=== PATIENT | female | born 1930 | race Caucasian/White ===

== ENCOUNTER 2017-09-04 12:17 | Inpatient (IN) ==
[2017-09-04] MEDS ORDERED: IOPAMIDOL 100 ML BOTTLE IV ONE (12:18)
[2017-09-04] MEDS ORDERED: 0.9 % SODIUM CHLORIDE 1,000 ML IV ONE (12:38)
[2017-09-04] MEDS ORDERED: ONDANSETRON 4 MG/2 ML VIAL IV ONE (12:38)
[2017-09-04 13:25] LABS: Basophils # (Auto) 0.1 K/mcL (0.0-0.3); Basophils % (Auto) 0.4 % (0.0-2.0); Eosinophils # (Auto) 0.6 K/mcL (0.0-0.7); Eosinophils % (Auto) 2.8 % (0.0-7.0); Granulocytes % (Auto) 79.1 % (38.0-78.0); Lymphocytes # (Auto) 2.1 K/mcL (1.5-4.8); Lymphocytes % (Auto) 10.4 % (15.5-49.0); Mean Cell Volume 75.5 fL (80.0-100.0); Mean Corpuscular HGB Conc 32.4 g/dL (31.0-36.0); Mean Corpuscular Hemoglobin 24.5 pg (26.0-34.0); Monocytes # (Auto) 1.5 K/mcL (0.1-0.9); Monocytes % (Auto) 7.3 % (1.0-12.0); Platelet Count 561 K/mcL (140-440); RBC 3.67 M/mcL (4.00-5.20); Red Cell Distribution Width 21.9 % (11.5-14.5)
[2017-09-04 13:49] LABS: ALT/SGPT 7 U/l (0-40); Albumin 3.4 gm/dL (3.2-5.2); Albumin/Globulin Ratio 0.9 (1.0-2.3); Alkaline Phosphatase 93 U/L (39-117); Blood Urea Nitrogen 20 mg/dl (8-23)
[2017-09-04] MEDS ORDERED: cefTRIAXone 1 GM VIAL IV ONE (13:52)
[2017-09-04 14:42] LABS: Appearance,Urine HAZY; Bacteria,Urine MANY /hpf (0); Bilirubin,Urine NEG (NEG); Color,Urine YELLOW; Glucose,Urine (UA) NEGATIVE (NEG); Ictotest,Urine NEG (NEG); Leukocyte Esterase,Urine 250 /uL (NEG); Mucus,Urine MANY /hpf (0); Nitrate,Urine POS (NEG); Protein,Urine 30 mg/dL (NEG); Specific Gravity,Urine 1.023 (1.000-1.035); Urine Blood NEG mg/dL (<0.03); Urine RBC 3 /hpf (0-1); Urine Squamous Epithelial Cell 4 /hpf (0-4); Urine WBC 159 /hpf (0-4)
--- NOTE | 2017-09-04 15:13 | Cat Scan Report ---
CLINICAL INFORMATION: Abdominal pain COMPARISON: None. TECHNIQUE: Following enteric contrast, 80 cc of Isovue-300 were injected intravenously, and 60 seconds later, 0.625 mm helical slices were obtained from the mid heart through the subtrochanteric regions. Following reconstruction, 2.5 mm sagittal, coronal and axial reformatted images were processed and reviewed at bone, lung and soft tissue windows. Five minutes later, 0.625 mm helical slices were obtained from the mid heart through the kidneys and viewed at soft tissue windows.The exam was performed using radiation dose optimization techniques including, but not limited to, automated exposure control, adjustment of the mA and/or kV according to patient size and use of iterative reconstruction technique. FINDINGS: Lung bases show no abnormality - no effusion. Small hiatal hernia is noted. The visualized heart is mildly enlarged and there is heavy calcification of mitral annulus Images through the abdomen show multiple small stones, ranging up to 1 cm, layering dependently within the gallbladder. The gallbladder is otherwise normal - no evidence of cholecystitis . The intrahepatic and common bile ducts are normal caliber: CBD is 5 mm. The liver, both kidneys, adrenal glands, spleen and pancreas are normal in size configuration and attenuation without focal lesion. The aorta demonstrates moderate ectasia with moderately heavy fibrofatty calcific plaque. Celiac, SMA, AG, renal and iliac arteries are widely patent Images through the pelvis show hysterectomy/ oophorectomy changes. There is a 1 cm fat lobule seen in the nondependent urinary bladder dome - uncertain etiology and significance. Severe diverticulitis of the entire sigmoid colon is noted. There are multiple diverticuli, circular muscle hypertrophy with moderate thickening of the wall and inflammation in the perisigmoid fat. No evidence of abscess. Remainder of the colon, appendix small bowel and stomach are normal. Bone windows show no focal osseous abnormalities. Degenerative change lumbar spine as previously described IMPRESSION: 1. Moderate simple diverticulitis involving the entire sigmoid colon. No evidence of abscess 2. Cholelithiasis. Gallbladder and bile ducts are otherwise normal 3. Small hiatal hernia 4. 1 cm region of fat within the urinary bladder near the dome region. The etiology and significance is unknown. Consider cystoscopy 5. Heavy calcification of mitral annulus Interpreted and Authenticated by: Nuno Roche 09/04/17
--- NOTE | 2017-09-04 15:34 | Emergency Department Note ---
Abdominal Pain HPI - General Chief Complaint: Abdominal Pain Stated Complaint: Lower abdominal pain x 1 week Time Seen by Provider: 09/04/17 12:28 Source: patient Mode of arrival: ambulatory Limitations: no limitations - History of Present Illness HPI Narrative: 79-year-old female presents with lower abdominal pain for about a week. Progressively getting worse each day. States a constant dull ache across her lower abdomen. She also has some urinary frequency. Denies dysuria. Denies hematuria. Positive chills the last 48 hours. Unknown fever. Has some nausea yesterday and today. No vomiting or diarrhea. Last bowel movement was last night and was normal. No cough or cold symptoms. No dizziness. She does state that last week she got a blood transfusion. States she had to get a blood transfusion because her hemorrhoids were bleeding so much. I did question her on this several times but she insists it was due to the bleeding from hemorrhoids. No home treatments. She does have a mildly decreased appetite especially over the last 3 days. - Related Data Home Medications Medication Instructions Recorded Confirmed Methocarbamol [Robaxin] 500 mg PO TIDP PRN 08/28/17 09/04/17 traMADol [Ultram] 50 mg PO Q6HP PRN 09/04/17 09/04/17 Allergies Allergy/AdvReac Type Severity Reaction Status Date / Time hayfever Allergy Mild Congested Uncoded 08/28/17 12:57 Review of Systems All systems ED: reviewed and negative except as stated. Abdominal Pain PMH - Past Medical History [facility] Narrative: Limited medical history available. To get some records from Dr. Goodrich's office but very limited. Patient has poor historian. Medical history: Reports: other (Diverticulosis, hemorrhoids, anemia) Reports: diverticulosis - Social History Smoking status: Never smoker Alcohol use: Reports: None Drug use: Reports: none Physical Exam Limitations: no limitations General appearance: alert, in no apparent distress Head: atraumatic, normocephalic, normal inspection Eye: Present: normal appearance. Absent: conjunctival injection ENT: normal exam, normal oropharynx, mucous membranes moist, TM's normal bilaterally, normal external ear exam Neck: Present: normal inspection, trachea midline. Absent: tenderness, lymphadenopathy Chest: Present: normal inspection, symmetric chest wall rise Respiratory: Present: normal lung sounds bilaterally. Absent: respiratory distress, wheezes, accessory muscle use Cardiovascular: Present: regular rate, normal heart sounds Abdominal: Present: soft, tenderness (Diffuse lower abdominal tenderness with palpation), normal bowel sounds, other (Urine dip positive for moderate leukocytes. Urinalysis pending. Please see lab results). Absent: distention, guarding, rebound, mass Extremities: Present: normal inspection Neurological: Present: alert, oriented X3 Psychiatric: Present: normal affect, normal mood Skin: Present: warm, dry, intact, normal color. Absent: rash, cyanosis, diaphoresis, erythema Course Course Narrative: At 1530 I did speak to the hospitalist, Dr. Harris who agrees to admit patient. Vital Signs Temperature 99.3 F H 09/04/17 12: Pulse Rate 107 H 09/04/17 12:17 Respiratory Rate 18 09/04/17 12:17 Blood Pressure 125/70 09/04/17 12:17 Pulse Oximetry (%) 95 09/04/17 12:17 Temperature 96.6 F L 09/04/17 16:00 Pulse Rate 79 09/04/17 15:17 Respiratory Rate 16 09/04/17 16:00 Blood Pressure 119/62 09/04/17 16:00 Pulse Oximetry (%) 95 09/04/17 16:00 Abdominal Pain - Lab Data Lab results reviewed: Yes I reviewed the patient's lab results. Result diagrams: 09/04/17 12:51 09/04/17 12:51 Lab Results 09/04/17 09/04/17 09/04/17 Range/Units 12:51 12:51 14:05 WBC 20.5 H (4.5-11.0) K/mcL RBC 3.67 L (4.00-5.20) M/mcL Hgb 9.0 L (12.0-15.0) g/dL Hct 27.7 L (36.0-48.0) % POC Hct 28.0 L (36.0-48.0) % MCV 75.5 L (80.0-100.0) fL MCH 24.5 L (26.0-34.0) pg MCHC 32.4 (31.0-36.0) g/dL RDW 21.9 H (11.5-14.5) % Plt Count 561 H (140-440) K/mcL MPV 7.6 (7.4-10.4) fL Gran % 79.1 H (38.0-78.0) % Lymph % (Auto) 10.4 L (15.5-49.0) % [place] % (Auto) 7.3 (1.0-12.0) % Eos % (Auto) 2.8 (0.0-7.0) % Baso % (Auto) 0.4 (0.0-2.0) % Gran # 16.2 H (1.8-8.0) K/mcL Lymph # (Auto) 2.1 (1.5-4.8) K/mcL [place] # (Auto) 1.5 H (0.1-0.9) K/mcL Eos # (Auto) 0.6 (0.0-0.7) K/mcL Baso # (Auto) 0.1 (0.0-0.3) K/mcL VBG Lactic Acid 0.7 (0.5-2.2) mmol/L POC Sodium 135 (133-145) mmol/L Sodium 136 (133-145) mmol/L POC Potassium 4.0 (3.3-5.1) mmol/L Potassium 4.2 (3.3-5.1) mmol/L POC Chloride 98 (96-108) mmol/L Chloride 97 (96-108) mmol/L Carbon Dioxide 25 (22-30) mmol/L POC Total CO2 26 (22-30) mmol/L Anion Gap 14.0 (8-16) POC BUN 18 (8-23) mg/dl BUN 20 (8-23) mg/dl Creatinine 0.9 (0.6-1.1) mg/dl POC Creatinine 0.8 (0.6-1.1) mg/dl GFR Calculation 57 Glucose 116 H (70-105) mg/dL POC Glucose 116 H (70-105) mg/dL Calcium 9.6 (8.6-10.4) mg/dl POC WB Ioniz Calcium 1.20 (1.16-1.32) mmol/L Total Bilirubin 0.6 (0.0-1.0) mg/dL AST 11 (0-37) U/l ALT 7 (0-40) U/l Alkaline Phosphatase 93 (39-117) U/L Total Protein 7.0 (5.9-8.4) gm/dL Albumin 3.4 (3.2-5.2) gm/dL Globulin 3.6 (2.2-3.7) gm/dL Albumin/Globulin Ratio 0.9 L (1.0-2.3) Urine Color Urine Appearance Urine pH (5.0-9.0) Ur Specific [place] (1.000-1.035) Urine Protein (NEG) mg/dL Urine Glucose (UA) (NEG) mg/dL Urine Ketones (NEG) mg/dL Urine Occult Blood (<0.03) mg/dL Urine Nitrate (NEG) Urine Bilirubin (NEG) mg/dL Urine Ictotest (NEG) Urine Urobilinogen (NEG) mg/dL Ur Leukocyte Esterase (NEG) /uL Urine RBC (0-1) /hpf Urine WBC (0-4) /hpf Ur Squamous Epith Cells (0-4) /hpf Urine Bacteria (0) /hpf Urine Mucus (0) /hpf Ur Culture Indicated? 09/04/17 Range/Units 14:16 WBC (4.5-11.0) K/mcL RBC (4.00-5.20) M/mcL Hgb (12.0-15.0) g/dL Hct (36.0-48.0) % POC Hct (36.0-48.0) % MCV (80.0-100.0) fL MCH (26.0-34.0) pg MCHC (31.0-36.0) g/dL RDW (11.5-14.5) % Plt Count (140-440) K/mcL MPV (7.4-10.4) fL Gran % (38.0-78.0) % Lymph % (Auto) (15.5-49.0) % [place] % (Auto) (1.0-12.0) % Eos % (Auto) (0.0-7.0) % Baso % (Auto) (0.0-2.0) % Gran # (1.8-8.0) K/mcL Lymph # (Auto) (1.5-4.8) K/mcL [place] # (Auto) (0.1-0.9) K/mcL Eos # (Auto) (0.0-0.7) K/mcL Baso # (Auto) (0.0-0.3) K/mcL VBG Lactic Acid (0.5-2.2) mmol/L POC Sodium (133-145) mmol/L Sodium (133-145) mmol/L POC Potassium (3.3-5.1) mmol/L Potassium (3.3-5.1) mmol/L POC Chloride (96-108) mmol/L Chloride (96-108) mmol/L Carbon Dioxide (22-30) mmol/L POC Total CO2 (22-30) mmol/L Anion Gap (8-16) POC BUN (8-23) mg/dl BUN (8-23) mg/dl Creatinine (0.6-1.1) mg/dl POC Creatinine (0.6-1.1) mg/dl GFR Calculation Glucose (70-105) mg/dL POC Glucose (70-105) mg/dL Calcium (8.6-10.4) mg/dl POC WB Ioniz Calcium (1.16-1.32) mmol/L Total Bilirubin (0.0-1.0) mg/dL AST (0-37) U/l ALT (0-40) U/l Alkaline Phosphatase (39-117) U/L Total Protein (5.9-8.4) gm/dL Albumin (3.2-5.2) gm/dL Globulin (2.2-3.7) gm/dL Albumin/Globulin Ratio (1.0-2.3) Urine Color Yellow Urine Appearance Hazy Urine pH 5.0 (5.0-9.0) Ur Specific [place] 1.023 (1.000-1.035) Urine Protein 30 A (NEG) mg/dL Urine Glucose (UA) Negative (NEG) mg/dL Urine Ketones Neg (NEG) mg/dL Urine Occult Blood Neg (<0.03) mg/dL Urine Nitrate Pos A (NEG) Urine Bilirubin Neg (NEG) mg/dL Urine Ictotest Neg (NEG) Urine Urobilinogen 2.0 A (NEG) mg/dL Ur Leukocyte Esterase 250 A (NEG) /uL Urine RBC 3 H (0-1) /hpf Urine WBC 159 H (0-4) /hpf Ur Squamous Epith Cells 4 (0-4) /hpf Urine Bacteria Many A (0) /hpf Urine Mucus Many A (0) /hpf Ur Culture Indicated? Yes - Radiology Data Radiology results reviewed: Yes I reviewed the patient's radiology results. Disposition Pt seen by OBSTETRICS GYN PHYSICIAN/PA only: No Clinical Impression: Diverticulitis, Urinary tract infection, Abdominal pain Disposition: Xfer As Inpt ([facility]) Condition: Fair Time of Disposition: 19:00
[2017-09-04] MEDS ORDERED: HYDROmorphone 2 MG/ML SYRINGE IV PRN (15:58)
[2017-09-04] MEDS ORDERED: ONDANSETRON ODT 4 MG TABLET SL PRN (15:58)
[2017-09-04] MEDS ORDERED: cefTRIAXone 1 GM in DEXTROSE 5% IN WATER 50 ML IV SCH (15:58)
[2017-09-04] MEDS ORDERED: NALOXONE HCL 0.4 MG/ML VIAL IV PRN (15:58)
[2017-09-04] MEDS ORDERED: ALBUTEROL SULFATE 2.5 MG/3 ML NEBULIZER NEB PRN (15:58)
--- NOTE | 2017-09-04 16:26 | Emergency Department Note ---
ED Note Addendum Note Addendum: pt has diverticulitis , seen by Alyssa, and hospitalist Dr Durand has accepted the patient. Patient started on antibiotics, and agreew with dx and rx. Labs and xrays reviewed
[2017-09-04] MEDS: DEXTROSE 5%-LR W/20MEQ KCL 1,000 ML IV SCH (16:41)
--- NOTE | 2017-09-04 17:03 | Internal Med History&Physical ---
Medical - H&P: HPI Patient information: Note initiated : 09/04/17 at 5:00 pm Service Date, if different from initiated Date: [] Patient: Kenya Diamond a 87 y/o F admitted on 09/04/17 for Lower Abd Pain x 1 Week. Chief Complaint: [] History of present illness: Ms. Diamond is a 87 year old Female presnts to the ER today with complaints of abdominal pain x 1 week pain is located in the lower abdomen and left lower quadrant, constant, sharp, with intermittent worsening, this has been progressively geting worse, she notes she has decreased appetite and has not been eating much. Pain is worse with ambulation and better with rest and muscle relaxants. She has blood in the stools, which she has attributed to hemorrhoids, she has received transfusions for same in [place] past, last xfusion on sunday, she is due to see a surgeon denies need for colonoscopy and was argumentative about the need for one. she had one few yrs ago and notes was ok. The patient in the ER had elevated wbc, normal lact ic acid, abnl ua and CT abdomen showing sigmoid diverticulitis, admitted to the hospital for further management. All systems: reviewed and no additional remarkable complaints except as stated ( as per hpi) Medical - H&P: PMH Medical history: Medical History Diverticulitis (Acute) Urinary tract infection (Acute) Abdominal pain (Acute) Surgical history: hystrectomy Pertinent family history: father with leukamemia, no h/o colon cancer in family Social history: denies smoking, tobacco, denies etoh denies use of recreational drugs. Medical - H&P: Meds Home Medications Medication Instructions Recorded Confirmed Type Methocarbamol [Robaxin] 500 mg PO TIDP PRN 08/28/17 09/04/17 History traMADol [Ultram] 50 mg PO Q6HP PRN 09/04/17 09/04/17 History Allergies Allergy/AdvReac Type Severity Reaction Status Date / Time hayfever Allergy Mild Congested Uncoded 08/28/17 12:57 Medical - H&P: Exam - Constitutional Vitals: Temp Pulse Resp BP Pulse Ox 99.3 F H 79 18 132/58 93 09/04/17 12:17 09/04/17 15:17 09/04/17 12:17 09/04/17 15:17 09/04/17 15:17 Exam: GENERAL: The patient is a well-developed, well-nourished in no apparent distress. Is alert and oriented x3. VITAL SIGNS: Reviewed and as noted elsewhere. HEENT: Head is normocephalic and atraumatic. Extraocular muscles are intact. Pupils are equal, round, and reactive to light. Nares appeared normal. Mouth appears any without lesions. Mucous membranes are dry NECK: Normal to inspection, Supple, No lymphadenopathy or thyromegaly. LUNGS: Air entry equal on both sides, no wheezing, crackles or rhonchi noted. No accessory muscles of respiration HEART: Regular rate and rhythm normal, S1 and S2 heard, no Gallop, S3 or Rub Noted, No Gross murmur heard. ABDOMEN: Soft,hypogastric tenderness, left lower quadrant tenderness, guarding present, no rigidity, bowel sounds present. no organomegaly noted. EXTREMITIES: No cyanosis, clubbing, rash, lesions or edema. NEUROLOGIC: Cranial nerves II through XII are grossly intact. Motor and Sensory System Grossly Intact PSYCHIATRIC: Normal affect, Normal Mood. Appropriate Behavior. SKIN: No ulceration or wounds noted, No jaundice, No rash noted. Medical - H&P: Reslt - Labs CBC & Chem 7: 09/04/17 12:51 09/04/17 12:51 Labs: Short CBC 09/04/17 Range/Units 12:51 WBC 20.5 H (4.5-11.0) K/mcL Hgb 9.0 L (12.0-15.0) g/dL Hct 27.7 L (36.0-48.0) % Plt Count 561 H (140-440) K/mcL BMP 09/04/17 12:51 Sodium 136 Potassium 4.2 Chloride 97 Carbon Dioxide 25 BUN 20 Creatinine 0.9 Glucose 116 H Calcium 9.6 Liver Function 09/04/17 Range/Units 12:51 Total Bilirubin 0.6 (0.0-1.0) mg/dL AST 11 (0-37) U/l ALT 7 (0-40) U/l Alkaline Phosphatase 93 (39-117) U/L Albumin 3.4 (3.2-5.2) gm/dL Urine 09/04/17 Range/Units 14:16 Urine Color Yellow Urine Appearance Hazy Urine pH 5.0 (5.0-9.0) Ur Specific [place] 1.023 (1.000-1.035) Urine Protein 30 A (NEG) mg/dL Urine Glucose (UA) Negative (NEG) mg/dL Medical - H&P: A/P - Narrative A/P Narrative: A/P Acute Diveticulitis UTI Sepsis Osteoarthrtitis/ Chr back pain Plan Admit to med surg Clear liquid diet for now IV rocephin and flagyl IV FLuids pain control monitor response dvt hep s q full code.
[2017-09-04] MEDS: metroNIDAZOLE 500 MG/100 ML BAG IV SCH ×2 (17:31→23:05)
[2017-09-04] MEDS: FAMOTIDINE/PF 20 MG/2 ML VIAL IV SCH (19:22)
[2017-09-04] MEDS: HEPARIN 5,000 UNIT/ML VIAL SQ SCH (19:22)
[2017-09-04] MEDS: METHOCARBAMOL 500 MG TABLET PO PRN (19:25)
[2017-09-04] MEDS: 0.9 % SODIUM CHLORIDE 10 ML SYRINGE IV SCH (20:19)
[2017-09-05] MEDS: METHOCARBAMOL 500 MG TABLET PO PRN (01:43)
[2017-09-05] MEDS: oxyCODONE HCL 5 MG TABLET PO PRN ×2 (04:37→21:12)
[2017-09-05] MEDS: ACETAMINOPHEN 325 MG TABLET PO PRN ×2 (04:37→21:12)
[2017-09-05] MEDS: 0.9 % SODIUM CHLORIDE 10 ML SYRINGE IV SCH ×3 (05:12→21:13)
[2017-09-05] MEDS: metroNIDAZOLE 500 MG/100 ML BAG IV SCH ×3 (05:16→22:50)
[2017-09-05] MEDS: DEXTROSE 5%-LR W/20MEQ KCL 1,000 ML IV SCH (07:39)
[2017-09-05] MEDS: HEPARIN 5,000 UNIT/ML VIAL SQ SCH ×2 (09:04→21:12)
[2017-09-05] MEDS: FAMOTIDINE/PF 20 MG/2 ML VIAL IV SCH ×2 (09:05→21:12)
[2017-09-05] MEDS: cefTRIAXone 1 GM VIAL IV SCH (09:05)
[2017-09-05 09:32] LABS: Basophils # (Auto) 0 K/mcL (0.0-0.3); Basophils % (Auto) 0.3 % (0.0-2.0); Eosinophils # (Auto) 0.6 K/mcL (0.0-0.7); Eosinophils % (Auto) 4.3 % (0.0-7.0); Granulocytes % (Auto) 76.9 % (38.0-78.0); Lymphocytes # (Auto) 1.5 K/mcL (1.5-4.8); Lymphocytes % (Auto) 10.6 % (15.5-49.0); Mean Cell Volume 75.8 fL (80.0-100.0); Mean Corpuscular HGB Conc 32.6 g/dL (31.0-36.0); Mean Corpuscular Hemoglobin 24.7 pg (26.0-34.0); Monocytes # (Auto) 1.1 K/mcL (0.1-0.9); Monocytes % (Auto) 7.9 % (1.0-12.0); Platelet Count 493 K/mcL (140-440); RBC 3.29 M/mcL (4.00-5.20); Red Cell Distribution Width 21.9 % (11.5-14.5)
[2017-09-05 09:51] LABS: ALT/SGPT 7 U/l (0-40); Albumin 2.6 gm/dL (3.2-5.2); Albumin/Globulin Ratio 0.8 (1.0-2.3); Alkaline Phosphatase 79 U/L (39-117); Bilirubin,Direct < 0.2 mg/dL (0.0-0.3); Blood Urea Nitrogen 16 mg/dl (8-23); Gamma Glutamyl Transpeptidase 17 U/L (5-36); Uric Acid 5.1 mg/dL (2.5-8.0)
[2017-09-05] MEDS ORDERED: IPRATROPIUM/ALBUTEROL 3 ML AMPUL.NEB NEB ONE ×2 (21:00→21:41)
--- NOTE | 2017-09-05 21:03 | Internal Med Progress Note ---
Medical - PN: Subj Patient information: Note initiated : 09/05/17 at 9:00 pm Service Date, if different from initiated Date: [] Patient: Kenya Diamond 87 y/o F admitted on 09/04/17 for Lower Abd Pain x 1 Wk/Diverticulitis, UTI, Sepsis. Chief Complaint: [] Interval history: Ms. Diamond is a 87 year old Female presnts to the ER today with complaints of abdominal pain x 1 week pain is located in the lower abdomen and left lower quadrant, constant, sharp, with intermittent worsening, this has been progressively geting worse, she notes she has decreased appetite and has not been eating much. Pain is worse with ambulation and better with rest and muscle relaxants. She has blood in the stools, which she has attributed to hemorrhoids, she has received transfusions for same in [place] past, last xfusion on sunday, she is due to see a surgeon denies need for colonoscopy and was argumentative about the need for one. she had one few yrs ago and notes was ok. The patient in the ER had elevated wbc, normal lact ic acid, abnl ua and CT abdomen showing sigmoid diverticulitis, admitted to the hospital for further management. Sep 05 patient seen examined, no acute overnight events, tolerated liquid diet well, she still has soreness in abdomen but much better urine cx is gram neg bacillus, on rocephin patient diet advanced today to low fiber diet and she is tolerating it well Pertinent ROS: Denies headache, dizziness Denies chest pain, palpitations Denies cough or shortness of breath abdoimnal pain present, but no nausea and or vomiting. . - Constitutional Vitals: Vital Signs Temp Pulse Resp BP Pulse Ox 99.8 F H 97 H 24 H 160/67 93 09/05/17 18:45 09/05/17 18:45 09/05/17 18:45 09/05/17 18:45 09/05/17 18:45 Period Temp Pulse Resp BP Sys/[place]arrison Pulse Ox Last 24 Hr 96.4 F-99.8 F 74-98 18-24 99-160/53-77 93-97 Intake and Output 09/05/17 09/05/17 09/05/17 05:59 13:59 21:59 Intake Total 785 / 785 1100 / 1100 400 / 400 Output Total 551 / 551 250 / 250 375 / 375 Balance 234 / 234 850 / 850 25 / 25 Intake & Output: Intake & Output 09/05/17 09/05/17 09/05/17 05:59 13:59 21:59 Intake Total 785 / 785 1100 / 1100 400 / 400 Output Total 551 / 551 250 / 250 375 / 375 Balance 234 / 234 850 / 850 25 / 25 Intake: IV 100 / 100 1100 / 1100 100 / 100 Dextrose 5%-Lr W/20Meq KCl 1, 1000 / 1000 000 ml @ 75 mls/hr IV .[id number] [facility] Rx#:[id number] Oral 685 / 685 300 / 300 Output: Void Amount 550 / 550 250 / 250 375 / 375 # of times incontinent of urine Other: Meal Breakfast Dinner Percent of Meal Consumed 100% 50% Feeding Ability Assist with Tray Set Up # Bowel Movements 1 Exam: Constitutional; Afebrile, cooperative, alert, not in distress. Eyes- No icterus, , No periorbital swelling Ears- Ext ear normal, hearing normal to conversation. Neck- Midline trachea, supple Respiratory system: Air Entry equal on both sides, No crackles or wheezing, no rhonchi. CVS- Rate rhythm regular, S1,S2 heard, no gallop, no rub. Abdomen- tender hypogastric, left lower quadrant, bowel sounds present, some guarding present. FORESTRY AIDE- AOOx3, moving all extremities, no gross focal deficit noted. Medical - PN: Obj Da - Labs CBC & Chem 7: 09/05/17 08:55 09/05/17 08:55 Labs: Abnormal Lab Results 09/05/17 09/05/17 09/04/17 08:55 08:55 14:16 WBC 14.0 H RBC 3.29 L Hgb 8.1 L Hct 24.9 L POC Hct MCV 75.8 L MCH 24.7 L RDW 21.9 H Plt Count 493 H Gran % Lymph % (Auto) 10.6 L Gran # 10.8 H [place] # (Auto) 1.1 H Glucose POC Glucose Lactate Dehydrogenase 260 H Albumin 2.6 L Albumin/Globulin Ratio 0.8 L Urine Protein 30 A Urine Nitrate Pos A Urine Urobilinogen 2.0 A Ur Leukocyte Esterase 250 A Urine RBC 3 H Urine WBC 159 H Urine Bacteria Many A Urine Mucus Many A 09/04/17 09/04/17 12:51 12:51 WBC 20.5 H RBC 3.67 L Hgb 9.0 L Hct 27.7 L POC Hct 28.0 L MCV 75.5 L MCH 24.5 L RDW 21.9 H Plt Count 561 H Gran % 79.1 H Lymph % (Auto) 10.4 L Gran # 16.2 H [place] # (Auto) 1.5 H Glucose 116 H POC Glucose 116 H Lactate Dehydrogenase Albumin Albumin/Globulin Ratio 0.9 L Urine Protein Urine Nitrate Urine Urobilinogen Ur Leukocyte Esterase Urine RBC Urine WBC Urine Bacteria Urine Mucus Meds: Medications Acetaminophen (Tylenol) 650 mg PO Q6HP PRN PRN Reason: PAIN/FEVER > 101 Last Admin: 09/05/17 04:37 Dose: 650 mg Albuterol Sulfate (Ventolin) 2.5 mg NEB Q2HP PRN PRN Reason: Shortness Of Breath Ceftriaxone Sodium (Rocephin) 1 gm IV DAILY [facility] Last Admin: 09/05/17 09:05 Dose: 1 gm Famotidine (Pepcid) 20 mg IV Q12 [facility] Last Admin: 09/05/17 09:05 Dose: 20 mg Heparin Sodium (Porcine) (Heparin) 5,000 unit SQ Q12 [facility] Last Admin: 09/05/17 09:04 Dose: 5,000 unit Hydromorphone HCl (Dilaudid) 0.5 mg IV Q2HP PRN PRN Reason: PAIN LEVEL > 6 Metronidazole (Flagyl) 500 mg in 100 mls @ 100 mls/hr IV Q8H [facility] Last Infusion: 09/05/17 15:46 Dose: Infused Potassium Cl/Dextrose/Lact Ringer's (Dextrose 5%-Lr W/20meq Kcl) 1,000 mls @ 75 mls/hr IV .[id number] [facility] Last Admin: 09/05/17 07:39 Dose: 75 mls/hr Methocarbamol (Robaxin) 500 mg PO TIDP PRN PRN Reason: back spasms Last Admin: 09/05/17 01:43 Dose: 500 mg Naloxone HCl (Narcan) 0.1 mg IV Q2MIN PRN PRN Reason: Opiate Reversal Ondansetron HCl (Zofran Odt) 4 mg SL Q6HP PRN PRN Reason: Nausea And Vomiting Oxycodone HCl (Roxicodone) 5 mg PO Q4HP PRN PRN Reason: PAIN LEVEL 3-6 Last Admin: 09/05/17 04:37 Dose: 5 mg Sodium Chloride (Saline Flush) 10 ml IV Q8 [facility] Last Admin: 09/05/17 14:49 Dose: 10 ml Medical - PN: A/P - Time Spent With Patient Total time spent is greater than 50% in coordination of care (as documented) at patient's floor/unit and/or counseling patient: - Narrative A/P Narrative: A/P Acute Diveticulitis: low fiber diet for now on flagyl and rocephin, clinically improving UTI: on rocephin, gram neg matthew on cultures. sensitivities pending, clinically improving, mointor. Sepsis, wbc trending down bp stable monitor. Osteoarthrtitis/ Chr back pain resume home meds. anemia: due to sepsis, hb 8.1, likely from fluids and infection/ sepsis no e/o bleed monitor. xfuse if needed, send anemia workup dvt hep s q full code.
[2017-09-06] MEDS: DEXTROSE 5%-LR W/20MEQ KCL 1,000 ML IV SCH (00:47)
[2017-09-06 05:36] LABS: Basophils # (Auto) 0.1 K/mcL (0.0-0.3); Basophils % (Auto) 0.4 % (0.0-2.0); Eosinophils # (Auto) 0.7 K/mcL (0.0-0.7); Eosinophils % (Auto) 5.6 % (0.0-7.0); Granulocytes % (Auto) 70.1 % (38.0-78.0); Lymphocytes % (Auto) 15.5 % (15.5-49.0); Mean Cell Volume 75.8 fL (80.0-100.0); Mean Corpuscular HGB Conc 31.6 g/dL (31.0-36.0); Monocytes # (Auto) 1.1 K/mcL (0.1-0.9); Monocytes % (Auto) 8.4 % (1.0-12.0); Platelet Count 506 K/mcL (140-440); RBC 3.22 M/mcL (4.00-5.20); Red Cell Distribution Width 21.8 % (11.5-14.5)
[2017-09-06] MEDS: 0.9 % SODIUM CHLORIDE 10 ML SYRINGE IV SCH ×3 (06:00→21:04)
[2017-09-06] MEDS: metroNIDAZOLE 500 MG/100 ML BAG IV SCH ×3 (06:00→21:04)
[2017-09-06 06:02] LABS: ALT/SGPT 7 U/l (0-40); Albumin 2.8 gm/dL (3.2-5.2); Albumin/Globulin Ratio 0.8 (1.0-2.3); Alkaline Phosphatase 109 U/L (39-117); Bilirubin,Direct < 0.2 mg/dL (0.0-0.3); Blood Urea Nitrogen 15 mg/dl (8-23); Gamma Glutamyl Transpeptidase 21 U/L (5-36); Iron 16 mcg/dl (37-145); Transferrin % Saturation 7 % (15-50); Unsaturated Iron Binding 207 mcg/dL (112-346); Uric Acid 4.7 mg/dL (2.5-8.0)
[2017-09-06 06:38] LABS: Ferritin 89.2 ng/ml (30-400)
[2017-09-06 06:44] LABS: Vitamin B12 501.6 pg/ml (232-1245)
[2017-09-06] MEDS: ACETAMINOPHEN 325 MG TABLET PO PRN (07:41)
[2017-09-06] MEDS ORDERED: IRON SUCROSE COMPLEX 100 MG/5 ML VIAL IV ONE (07:42)
[2017-09-06] MEDS: FAMOTIDINE/PF 20 MG/2 ML VIAL IV SCH ×2 (09:00→20:52)
[2017-09-06] MEDS: cefTRIAXone 1 GM VIAL IV SCH (11:07)
[2017-09-06] MEDS: HEPARIN 5,000 UNIT/ML VIAL SQ SCH ×2 (11:54→20:52)
--- NOTE | 2017-09-06 14:57 | Internal Med Progress Note ---
Medical - PN: Subj Patient information: Note initiated : 09/06/17 at 2:55 pm Service Date, if different from initiated Date: [] Patient: Kenya Diamond 87 y/o F admitted on 09/04/17 for Lower Abd Pain x 1 Wk/Diverticulitis, UTI, Sepsis. Chief Complaint: [] Interval history: Ms. Diamond is a 87 year old Female presnts to the ER today with complaints of abdominal pain x 1 week pain is located in the lower abdomen and left lower quadrant, constant, sharp, with intermittent worsening, this has been progressively geting worse, she notes she has decreased appetite and has not been eating much. Pain is worse with ambulation and better with rest and muscle relaxants. She has blood in the stools, which she has attributed to hemorrhoids, she has received transfusions for same in [place] past, last xfusion on sunday, she is due to see a surgeon denies need for colonoscopy and was argumentative about the need for one. she had one few yrs ago and notes was ok. The patient in the ER had elevated wbc, normal lact ic acid, abnl ua and CT abdomen showing sigmoid diverticulitis, admitted to the hospital for further management. Sep 05 patient seen examined, no acute overnight events, tolerated liquid diet well, she still has soreness in abdomen but much better urine cx is gram neg bacillus, on rocephin patient diet advanced today to low fiber diet and she is tolerating it well sep 06 Patient seen examined no acute concerns, tolerating po well hb low, iron levels lwo, h/o significant bleed, give one dose of IV iron today. she is supposed to see surgery as outpatient for hemorroihd treatment. abdominal pain much better now. Pertinent ROS: Denies headache, dizziness Denies chest pain, palpitations Denies cough or shortness of breath improved abdominal pain, no nausea/ vomiting. - Constitutional Vitals: Vital Signs Temp Pulse Resp BP Pulse Ox 97.5 F 78 20 120/83 97 09/06/17 13:14 09/06/17 07:40 09/06/17 13:14 09/06/17 13:14 09/06/17 13:14 Period Temp Pulse Resp BP Sys/Harrison Pulse Ox Last 24 Hr 97.3 F-99.8 F 78-97 18-24 104-160/54-83 92-97 Intake and Output 09/06/17 09/06/17 09/06/17 05:59 13:59 21:59 Intake Total 200 / 200 100 / 100 240 / 240 Output Total 201 / 201 700 / 700 Balance -1 / -1 -600 / -600 240 / 240 Weight 184 lb 8 oz Patient Weight 09/07/17 05:59 Weight 184 lb 8 oz Intake & Output: Intake & Output 09/06/17 09/06/17 09/06/17 05:59 13:59 21:59 Intake Total 200 / 200 100 / 100 240 / 240 Output Total 201 / 201 700 / 700 Balance -1 / -1 -600 / -600 240 / 240 Weight 184 lb 8 oz Intake: IV 100 / 100 100 / 100 Oral 100 / 100 240 / 240 Output: Void Amount 200 / 200 700 / 700 # of times incontinent of urine Other: Meal Breakfast Percent of Meal Consumed 100% # Bowel Movements 1 Exam: Constitutional; Afebrile, cooperative, alert, not in distress. Eyes- No icterus, , No periorbital swelling Ears- Ext ear normal, hearing normal to conversation. Neck- Midline trachea, supple Respiratory system: Air Entry equal on both sides, No crackles or wheezing, no rhonchi. CVS- Rate rhythm regular, S1,S2 heard, no gallop, no rub. Abdomen- tenderness improved, no guarding today, bs present. CLIENT RELATIONSHIP CONSULTANT- AOOx3, moving all extremities, no gross focal deficit noted. Medical - PN: Obj Da - Labs CBC & Chem 7: 09/06/17 04:21 09/06/17 04:21 Labs: Abnormal Lab Results 09/06/17 09/06/17 09/06/17 04:21 04:21 04:21 WBC 12.9 H RBC 3.22 L Hgb 7.7 L Hct 24.4 L POC Hct MCV 75.8 L MCH 24.0 L RDW 21.8 H Plt Count 506 H Gran % Lymph % (Auto) Gran # 9.1 H [place] # (Auto) 1.1 H Glucose POC Glucose Iron 16 L TIBC 223 L Transferrin % Sat 7 L Lactate Dehydrogenase Albumin 2.8 L Albumin/Globulin Ratio 0.8 L Folate > 20.0 H Urine Protein Urine Nitrate Urine Urobilinogen Ur Leukocyte Esterase Urine RBC Urine WBC Urine Bacteria Urine Mucus 12/09/05/17 09/04/17 08:55 08:55 14:16 WBC 14.0 H RBC 3.29 L Hgb 8.1 L Hct 24.9 L POC Hct MCV 75.8 L MCH 24.7 L RDW 21.9 H Plt Count 493 H Gran % Lymph % (Auto) 10.6 L Gran # 10.8 H [place] # (Auto) 1.1 H Glucose POC Glucose Iron TIBC Transferrin % Sat Lactate Dehydrogenase 260 H Albumin 2.6 L Albumin/Globulin Ratio 0.8 L Folate Urine Protein 30 A Urine Nitrate Pos A Urine Urobilinogen 2.0 A Ur Leukocyte Esterase 250 A Urine RBC 3 H Urine WBC 159 H Urine Bacteria Many A Urine Mucus Many A 09/04/17 09/04/17 12:51 12:51 WBC 20.5 H RBC 3.67 L Hgb 9.0 L Hct 27.7 L POC Hct 28.0 L MCV 75.5 L MCH 24.5 L RDW 21.9 H Plt Count 561 H Gran % 79.1 H Lymph % (Auto) 10.4 L Gran # 16.2 H [place] # (Auto) 1.5 H Glucose 116 H POC Glucose 116 H Iron TIBC Transferrin % Sat Lactate Dehydrogenase Albumin Albumin/Globulin Ratio 0.9 L Folate Urine Protein Urine Nitrate Urine Urobilinogen Ur Leukocyte Esterase Urine RBC Urine WBC Urine Bacteria Urine Mucus Meds: Medications Acetaminophen (Tylenol) 650 mg PO Q6HP PRN PRN Reason: PAIN/FEVER > 101 Last Admin: 09/06/17 07:41 Dose: 650 mg Albuterol Sulfate (Ventolin) 2.5 mg NEB Q2HP PRN PRN Reason: Shortness Of Breath Ceftriaxone Sodium (Rocephin) 1 gm IV DAILY [facility] Last Admin: 09/06/17 11:07 Dose: 1 gm Famotidine (Pepcid) 20 mg IV Q12 [facility] Last Admin: 09/06/17 09:00 Dose: 20 mg Heparin Sodium (Porcine) (Heparin) 5,000 unit SQ Q12 [facility] Last Admin: 09/06/17 11:54 Dose: 5,000 unit Hydromorphone HCl (Dilaudid) 0.5 mg IV Q2HP PRN PRN Reason: PAIN LEVEL > 6 Metronidazole (Flagyl) 500 mg in 100 mls @ 100 mls/hr IV Q8H [facility] Last Infusion: 09/06/17 07:21 Dose: Infused Methocarbamol (Robaxin) 500 mg PO TIDP PRN PRN Reason: back spasms Last Admin: 09/05/17 01:43 Dose: 500 mg Naloxone HCl (Narcan) 0.1 mg IV Q2MIN PRN PRN Reason: Opiate Reversal Ondansetron HCl (Zofran Odt) 4 mg SL Q6HP PRN PRN Reason: Nausea And Vomiting Oxycodone HCl (Roxicodone) 5 mg PO Q4HP PRN PRN Reason: PAIN LEVEL 3-6 Last Admin: 09/05/17 21:12 Dose: 5 mg Sodium Chloride (Saline Flush) 10 ml IV Q8 [facility] Last Admin: 09/06/17 06:00 Dose: 10 ml Medical - PN: A/P - Time Spent With Patient Total time spent is greater than 50% in coordination of care (as documented) at patient's floor/unit and/or counseling patient: - Narrative A/P Narrative: A/P Acute Diveticulitis: low fiber diet for now on flagyl and rocephin, clinically improving UTI: on rocephin, gram neg matthew on cultures. sensitivities pending, clinically improving, monitor. Sepsis, wbc trending down bp stable monitor. Osteoarthrtitis/ Chr back pain resume home meds. anemia: due to sepsis, hb 8.1, likely from fluids and infection/ sepsis no e/o bleed monitor. xfuse if needed, anemia workup shows iron def, h/o chr blood loss for hemorrhoids, given GI process, will give one dose of IV iron for now. dvt hep s q full code.
[2017-09-06] MEDS: oxyCODONE HCL 5 MG TABLET PO PRN (15:09)
[2017-09-07] MEDS: 0.9 % SODIUM CHLORIDE 10 ML SYRINGE IV SCH (05:36)
[2017-09-07] MEDS: metroNIDAZOLE 500 MG/100 ML BAG IV SCH (05:36)
[2017-09-07 07:00] LABS: Basophils # (Auto) 0 K/mcL (0.0-0.3); Basophils % (Auto) 0.3 % (0.0-2.0); Eosinophils # (Auto) 0.6 K/mcL (0.0-0.7); Eosinophils % (Auto) 5.6 % (0.0-7.0); Granulocytes % (Auto) 67.8 % (38.0-78.0); Lymphocytes # (Auto) 1.6 K/mcL (1.5-4.8); Lymphocytes % (Auto) 15.2 % (15.5-49.0); Mean Cell Volume 75.1 fL (80.0-100.0); Mean Corpuscular HGB Conc 32.4 g/dL (31.0-36.0); Mean Corpuscular Hemoglobin 24.3 pg (26.0-34.0); Monocytes # (Auto) 1.1 K/mcL (0.1-0.9); Monocytes % (Auto) 11.1 % (1.0-12.0); Platelet Count 537 K/mcL (140-440); RBC 3.21 M/mcL (4.00-5.20); Red Cell Distribution Width 21.5 % (11.5-14.5)
[2017-09-07 07:29] LABS: ALT/SGPT 7 U/l (0-40); Albumin 2.6 gm/dL (3.2-5.2); Albumin/Globulin Ratio 0.7 (1.0-2.3); Alkaline Phosphatase 90 U/L (39-117); Bilirubin,Direct < 0.2 mg/dL (0.0-0.3); Blood Urea Nitrogen 12 mg/dl (8-23); Gamma Glutamyl Transpeptidase 17 U/L (5-36); Magnesium 1.9 mg/dL (1.6-2.5)
[2017-09-07] MEDS: FAMOTIDINE/PF 20 MG/2 ML VIAL IV SCH (09:00)
[2017-09-07] MEDS: HEPARIN 5,000 UNIT/ML VIAL SQ SCH (09:00)
--- NOTE | 2017-09-07 10:16 | Discharge Summary ---
Medical - DS: Prov Patient information: Note initiated : 09/07/17 at 10:15 am Service Date, if different from initiated Date: [] Patient: Kenya Diamond 87 y/o F admitted on 09/04/17 for Lower Abd Pain x 1 Wk/Diverticulitis, UTI, Sepsis. Chief Complaint: [] Date of admission: 09/04/17 15:55 Discharge date: 09/07/17 Primary care physician: Adeel Underwood Admitting clinician: Elen Harris Consults: 09/04/17 15:22 Consult to Physician [CONS] Stat Comment: Consulting Provider: Elen Harris Reason For Exam: Physician to Consult Discharging clinician: Elen Harris Medical - DS: Meds - Discharge Medications Prescriptions: Ciprofloxacin HCl [Cipro] 500 mg PO BID #14 tab metroNIDAZOLE [Metronidazole] 500 mg PO TID #21 tab traMADol [Ultram] 50 mg PO Q6HP PRN #30 tab PRN Reason: Pain Active and Home Medications: Home Medications Methocarbamol [Robaxin] 500 mg PO TIDP PRN 08/28/17 [History Confirmed 09/04/17 Last Taken 09/04/17] traMADol [Ultram] 50 mg PO Q6HP PRN 09/04/17 [History Confirmed 09/04/17 Last Taken 09/04/17] Loratadine/Pseudoephedrine [Claritin-D 12 Hour Tablet] 1 each PO BID PRN [History Confirmed 09/05/17 Last Taken 09/03/17 09:00] Medical - DS: Hosp Hospital course: Ms. Diamond is a 87 year old Female presented to the ER with complaints of lower abdominal pain x 1 week. The patient pain is located in the lower abdomen and left lower quadrant, constant, sharp, with intermittent worsening, this has been progressively getting worse, The patient in the ER had elevated wbc, abnl ua and CT abdomen showing sigmoid diverticulitis, admitted to the hospital for further management. Diverticulitis: The patient was treated with IV Rocephin and metronidazole for same. the patient responded to treatment well, she has been able to tolerate po diet well, her wbc improved and her abdominal pain has been improving. The patient initially refused colonoscopy but now is willing to consider same. She is supposed to see Surgery for her chr hemorrhoids issue and so I will have her follow up with Gen surgery for this issue too. Hemorrhoids: Is a chr issue asp er patient she has significant lower gi bleed, and has been referred to surgery, she notes she has needed blood transfusions for same. Given her acute diverticulitis I do not feel that colonoscopy or sigmoidoscopy is warranted at this time. UTI: The patient ua was suggestive of UTI, klebsiella in urine, sensitive to rocephin and cipro, pt will be on cipro at discharge. 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 Anemia: Hb was low, she has iron def, she ahs h/o chr blood loss due to hemorrohoids, IV iron 200mg x1 was given while inpatient. Patient will benefit from outpatient follow up of same. Discharge diagnosis: diverticulitis, UTI, anemia - Time Spent with Patient Total time spent providing and/or coordinating discharge services: Greater than 30 minutes Medical - DS: Exam - Constitutional Vitals: Vital Signs Temp Pulse Resp BP Pulse Ox 09/07/17 07:08 98.4 F 20 131/75 92 09/07/17 06:40 98.1 F 20 135/72 92 09/07/17 04:00 97.8 F 101 H 18 133/83 93 09/07/17 00:00 97.2 F 95 H 16 116/62 90 09/06/17 20:00 99.4 F H 79 16 111/58 91 09/06/17 16:00 97.5 F 20 120/75 97 09/06/17 13:14 97.5 F 20 120/83 97 Intake and Output 09/06/17 09/07/17 09/07/17 21:59 05:59 13:59 Intake Total 340 / 340 500 / 500 100 / 100 Output Total Balance 340 / 340 500 / 500 99 / 99 Intake: IV 100 / 100 100 / 100 100 / 100 Oral 240 / 240 400 / 400 Output: # of times incontinent of urine Other: Meal Breakfast Percent of Meal Consumed 100% # Voids 1 1 1 # Bowel Movements 1 # of times incontinent of 1 Bowels Weight 189 lb Additional comments: Constitutional; Afebrile, cooperative, alert, not in distress. Eyes- No icterus, , No periorbital swelling Ears- Ext ear normal, . Neck- Midline trachea, supple Respiratory system: Air Entry equal on both sides, No crackles or wheezing, no rhonchi. CVS- Rate rhythm regular, S1,S2 heard, no gallop, no rub. Abdomen- Soft tenderness present, but good bs, no rebound, MANAGER UI- AOOx3, moving all extremities, no gross focal deficit noted. Medical - DS: Data Labs on day of discharge: Labs from last 24 hours 09/07/17 09/07/17 05:02 05:02 WBC 10.3 RBC 3.21 L Hgb 7.8 L Hct 24.1 L MCV 75.1 L MCH 24.3 L MCHC 32.4 RDW 21.5 H Plt Count 537 H MPV 8.3 Gran % 67.8 Lymph % (Auto) 15.2 L [place] % (Auto) 11.1 Eos % (Auto) 5.6 Baso % (Auto) 0.3 Gran # 7.0 Lymph # (Auto) 1.6 [place] # (Auto) 1.1 H Eos # (Auto) 0.6 Baso # (Auto) 0 Sodium 135 Potassium 4.2 Chloride 98 Carbon Dioxide 26 Anion Gap 11.0 BUN 12 Creatinine 0.9 GFR Calculation 57 Glucose 84 Uric Acid 5.0 Calcium 9.0 Phosphorus 2.8 Magnesium 1.9 Total Bilirubin 0.2 Direct Bilirubin < 0.2 GGT 17 AST 11 ALT 7 Alkaline Phosphatase 90 Lactate Dehydrogenase 150 Total Protein 6.1 Albumin 2.6 L Globulin 3.5 Albumin/Globulin Ratio 0.7 L Triglycerides 50 Preliminary micro results at discharge 09/04/17 14:05 Blood Culture - Preliminary Blood 09/04/17 14:11 Blood Culture - Preliminary Blood Medical - DS: A/P - Patient/Caregiver Discharge Instructions Activity: as per physical therapy, increase activity as tolerated Diet: Regular Diet, Low Fiber Additional Instructions: Take antibiotics for another 7 days, FOllow up with PCP in 7 days Follow up with Surgery in 1-2 weeks, Follow up with Dr Bliss in 3-4 weeks for newly diagnosed bladder tumor, need for cystoscopy. GO to the ER if worsening abdominal pain, nausea, vomiting, or any other concerning symptom. consume a low fiber diet till ok by Surgery for regular diet. Prescriptions: Ciprofloxacin HCl [Cipro] 500 mg PO BID #14 tab metroNIDAZOLE [Metronidazole] 500 mg PO TID #21 tab traMADol [Ultram] 50 mg PO Q6HP PRN #30 tab PRN Reason: Pain - Follow up Plan Follow up with: Adeel Underwood MD [Primary Care Provider] - Disposition: Home Health Service Prognosis: Fair Rehab Potential: Fair I certify that the patient requires SNF services: No Overall status at discharge: patient is progressing back to baseline
[2017-09-07] MEDS: cefTRIAXone 1 GM VIAL IV SCH (10:59)
== END 2017-09-07 12:40 | disposition home health service (06) | DRG 872 ==
LOC: ED 12:17 → MEDSUR 15:55
PROVIDERS: ADMIT Internal Medicine; ATTEND Internal Medicine

== ENCOUNTER 2017-09-18 14:20 | Observation (INO) ==
[2017-09-18] MEDS ORDERED: DEXTROSE 5%-1/2NS W/20MEQ KCL 1,000 ML IV SCH (15:15)
[2017-09-18 15:55] LABS: Basophils # (Auto) 0.1 K/mcL (0.0-0.3); Basophils % (Auto) 0.8 % (0.0-2.0); Eosinophils # (Auto) 0.3 K/mcL (0.0-0.7); Eosinophils % (Auto) 3.8 % (0.0-7.0); Granulocytes % (Auto) 61.7 % (38.0-78.0); Lymphocytes # (Auto) 1.8 K/mcL (1.5-4.8); Lymphocytes % (Auto) 24.2 % (15.5-49.0); Mean Cell Volume 75.8 fL (80.0-100.0); Mean Corpuscular HGB Conc 31.8 g/dL (31.0-36.0); Mean Corpuscular Hemoglobin 24.1 pg (26.0-34.0); Monocytes # (Auto) 0.7 K/mcL (0.1-0.9); Monocytes % (Auto) 9.5 % (1.0-12.0); Platelet Count 567 K/mcL (140-440); RBC 3.81 M/mcL (4.00-5.20)
[2017-09-18 16:09] LABS: ALT/SGPT 10 U/l (0-40); Albumin 3.4 gm/dL (3.2-5.2); Alkaline Phosphatase 67 U/L (39-117); Bilirubin,Direct < 0.2 mg/dL (0.0-0.3); Blood Urea Nitrogen 24 mg/dl (8-23); Gamma Glutamyl Transpeptidase 26 U/L (5-36); Uric Acid 4.1 mg/dL (2.5-8.0)
[2017-09-18 16:17] LABS: Appearance,Urine CLEAR; Bacteria,Urine 0 /hpf (0); Bilirubin,Urine NEG (NEG); Color,Urine YELLOW; Glucose,Urine (UA) NEGATIVE (NEG); Leukocyte Esterase,Urine NEG /uL (NEG); Mucus,Urine FEW /hpf (0); Nitrate,Urine NEG (NEG); Protein,Urine NEG (NEG); Specific Gravity,Urine 1.014 (1.000-1.035); Urine Blood NEG mg/dL (<0.03); Urine RBC 1 /hpf (0-1); Urine Squamous Epithelial Cell 1 /hpf (0-4); Urine WBC 3 /hpf (0-4); Urobilinogen,Urine NEG (NEG)
[2017-09-18] MEDS: metroNIDAZOLE 500 MG/100 ML BAG IV SCH ×2 (17:18→22:57)
[2017-09-18] MEDS: PIPERACILLIN SODIUM/TAZOBACTAM 3.375 GM in DEXTROSE 5% IN WATER 50 ML IV SCH (19:30)
[2017-09-19] MEDS: PIPERACILLIN SODIUM/TAZOBACTAM 3.375 GM in DEXTROSE 5% IN WATER 50 ML IV SCH ×4 (00:56→22:25)
[2017-09-19 05:25] LABS: Basophils # (Auto) 0 K/mcL (0.0-0.3); Basophils % (Auto) 0.4 % (0.0-2.0); Eosinophils # (Auto) 0.5 K/mcL (0.0-0.7); Granulocytes % (Auto) 56.7 % (38.0-78.0); Lymphocytes % (Auto) 25.7 % (15.5-49.0); Mean Cell Volume 76.3 fL (80.0-100.0); Mean Corpuscular HGB Conc 32.3 g/dL (31.0-36.0); Mean Corpuscular Hemoglobin 24.6 pg (26.0-34.0); Monocytes # (Auto) 0.9 K/mcL (0.1-0.9); Monocytes % (Auto) 11.2 % (1.0-12.0); Platelet Count 566 K/mcL (140-440); RBC 3.66 M/mcL (4.00-5.20); Red Cell Distribution Width 24.1 % (11.5-14.5)
[2017-09-19 05:58] LABS: Blood Urea Nitrogen 18 mg/dl (8-23)
[2017-09-19] MEDS: metroNIDAZOLE 500 MG/100 ML BAG IV SCH ×3 (06:50→23:05)
--- NOTE | 2017-09-19 07:06 | General Surgery Progress Note ---
Surgical - Auxillary Note - Subjective Patient Information: Note initiated : 09/19/17 at 7:05 am Service Date, if different from initiated Date: [] Patient: Kenya Diamond 87 y/o F admitted on 09/18/17 for Diverticulitis. Chief Complaint: Patient reports she is feeling a little better but admits to crampy abdominal pain after eating. This seems self limited. No nausea or emesis. Passed some stool. Vital Signs Temp Pulse Resp BP Pulse Ox 98.4 F 78 20 136/74 94 09/19/17 04:00 09/19/17 04:00 09/19/17 04:00 09/19/17 04:00 09/19/17 04:00 Period Temp Pulse Resp BP Sys/Harrison Pulse Ox Last 24 Hr 97.8 F-98.4 F 78-98 18-20 110-136/65-74 91-96 Intake and Output 09/18/17 09/19/17 09/19/17 21:59 05:59 13:59 Intake Total 630 / 630 350 / 350 Output Total 1000 / 1000 1150 / 1150 Balance -370 / -370 -800 / -800 Weight 178 lb PE: No distress Chest: clear bilaterally CV: regular rhythm and rate ABD: obese. soft. Still with LLQ tenderness to palpation but not worse than yesterday. CBC and Chem 7 09/19/17 04:10 09/19/17 04:10 A/P: Diverticulitis, incompletely treated. Admitted for IV antibiotics given incomplete course from patient not taking all prescribed meds. WBCs normal at this time. Symptoms persist but not worse so likely disease process stable at this time. Will continue with liquid diet for now. IV antibiotics for today and then if continues to do well convert to p.o. Have reviewed her prior urine cx results with hospitalist and seems Augmentin will cover for that so can change to Augmentin on abx.
[2017-09-19] MEDS ORDERED: METHOCARBAMOL 500 MG TABLET PO PRN (18:27)
[2017-09-19] MEDS ORDERED: ACETAMINOPHEN 500 MG TABLET PO PRN (18:27)
[2017-09-19] MEDS: traMADol 50 MG TABLET PO PRN ×2 (18:33→22:30)
[2017-09-19] MEDS ORDERED: traMADol 50 MG TABLET PO ONE (18:40)
[2017-09-20] MEDS: traMADol 50 MG TABLET PO PRN (00:05)
[2017-09-20] MEDS: PIPERACILLIN SODIUM/TAZOBACTAM 3.375 GM in DEXTROSE 5% IN WATER 50 ML IV SCH (05:55)
[2017-09-20 05:59] LABS: Basophils # (Auto) 0 K/mcL (0.0-0.3); Basophils % (Auto) 0.5 % (0.0-2.0); Eosinophils # (Auto) 0.5 K/mcL (0.0-0.7); Eosinophils % (Auto) 6.4 % (0.0-7.0); Lymphocytes % (Auto) 25.4 % (15.5-49.0); Mean Cell Volume 75.7 fL (80.0-100.0); Mean Corpuscular HGB Conc 32.2 g/dL (31.0-36.0); Mean Corpuscular Hemoglobin 24.4 pg (26.0-34.0); Monocytes # (Auto) 1.1 K/mcL (0.1-0.9); Monocytes % (Auto) 13.7 % (1.0-12.0); Platelet Count 549 K/mcL (140-440); RBC 3.67 M/mcL (4.00-5.20); Red Cell Distribution Width 24.1 % (11.5-14.5)
[2017-09-20] MEDS: metroNIDAZOLE 500 MG/100 ML BAG IV SCH (06:35)
--- NOTE | 2017-09-20 08:12 | General Surgery Progress Note ---
Surgical - Auxillary Note - Subjective Patient Information: Note initiated : 09/20/17 at 8:08 am Service Date, if different from initiated Date: [] Patient: Kenya Diamond 87 y/o F admitted on 09/18/17 for Diverticulitis. Chief Complaint: [] Patient rested well. Tolerated full liquids. Had some hip pain which is chronic and managed with Robaxin. Denies nausea or emesis. Says her abdomen feels better. Vital Signs Temp Pulse Resp BP Pulse Ox 96.3 F L 75 20 125/71 94 09/20/17 07:37 09/20/17 03:20 09/20/17 07:37 09/20/17 07:37 09/20/17 07:37 Period Temp Pulse Resp BP Sys/Harrison Pulse Ox Last 24 Hr 96.3 F-98.3 F 75-93 20-20 116-138/60-73 92-94 Intake and Output 09/19/17 09/20/17 09/20/17 21:59 05:59 13:59 Intake Total 470 / 470 790 / 790 50 / 50 Output Total 1226 / 1226 952 / 952 Balance -756 / -756 -162 / -162 50 / 50 Weight 177 lb 8 oz PE: No distress Chest: clear CV: regular rate and rhythm ABD: soft, LLQ tenderness less. No rebound or guarding. CBC and Chem 7 09/20/17 04:12 09/19/17 04:10 A/P: Diverticulitis and UTI previously incompletely treated. Clinically stable for this admission. Some improvement symptomatically. WBCs remain normal even with regular p.o. intake. Home today on abx: augmentin to cover for diverticulitis and UTI as patient not wanting to take CIPRO.
--- NOTE | 2017-09-20 08:18 | Discharge Summary ---
Providers - Providers Patient information: Note initiated : 09/20/17 at 8:12 am Service Date, if different from initiated Date: [] Patient: Kenya Diamond 87 y/o F admitted on 09/18/17 for Diverticulitis. Chief Complaint: [] Incompletely treated diverticulitis and UTI. Date of admission: 09/18/17 Discharge date: 09/20/17 Attending physician: Teresa Prince Hospitalization Hospital course: Patient was admitted for IV abx therapy to cover for incompletely treated UTI and diverticulitis when discharged from hospital previously. She tolerated this well. Was started on clear liquids and advanced to full liquid diet which she tolerated. Has some pain with eating but this improved. Patient said it was easier for her to manage the full liquids than regular diet that she was trying to do as an outpatient so she was kept on full liquids with supplements. WBCs were normal despite some increased pain as an outpatient. They remained normal during the hospitalization and symptom of abdominal pain improved. Patient discharged home on oral antibiotics and full liquid diet to be advanced slowly to low fiber/ low residue diet. Discharge diagnosis: Diverticulitis Secondary discharge diagnosis: UTI incompletely treated Reason for admission: Diveriticulitis: incompletely treated Exam Temp Pulse Resp BP Pulse Ox 96.3 F L 75 20 125/71 94 09/20/17 07:37 09/20/17 03:20 09/20/17 07:37 09/20/17 07:37 09/20/17 07:37 Discharge Plan - Patient/Caregiver Discharge Instructions Activity: increase activity as tolerated Diet: Low Fiber, Full Liquid (full liquids for 2 days and then advance to low fiber diet) Additional Instructions: Full liquid diet with Ensure or Boost supplements three times a day for the next 2-3 days. Then start low fiber diet as tolerated. - Follow up Plan Follow up with: Krystle Gerardo MD [Physician] - Disposition: Home, Self-Care Prognosis: Good Rehab Potential: Fair Pending Studies Diet Full Liquid Diet Start SunSep 18 1642 Acetaminophen (Tylenol) 500 mg PO Q4-6HP PRN PRN Reason: PAIN/FEVER > 101 Last Admin: 09/20/17 05:17 Dose: 500 mg Piperacillin Sod/Tazobactam (Sod 3.375 gm/ Dextrose) 50 mls @ 100 mls/hr IV Q8H [facility] Last Infusion: 09/20/17 06:35 Dose: 0 mls/hr Admin: 09/20/17 05:55 Dose: 100 mls/hr Infusion: 09/19/17 23:09 Dose: 0 mls/hr Admin: 09/19/17 22:25 Dose: 100 mls/hr Infusion: 09/19/17 14:33 Dose: 0 mls/hr Admin: 09/19/17 14:01 Dose: 100 mls/hr Infusion: 09/19/17 06:39 Dose: 100 mls/hr Admin: 09/19/17 06:09 Dose: 100 mls/hr Infusion: 09/19/17 01:26 Dose: 100 mls/hr Admin: 09/19/17 00:56 Dose: 100 mls/hr Infusion: 09/18/17 20:00 Dose: 100 mls/hr Admin: 09/18/17 19:30 Dose: 100 mls/hr Metronidazole (Flagyl) 500 mg in 100 mls @ 100 mls/hr IV Q8H [facility] Last Admin: 09/20/17 06:35 Dose: 100 mls/hr Infusion: 09/20/17 00:05 Dose: 100 mls/hr Admin: 09/19/17 23:05 Dose: 100 mls/hr Infusion: 09/19/17 15:42 Dose: 0 mls/hr Admin: 09/19/17 14:33 Dose: 100 mls/hr Infusion: 09/19/17 09:50 Dose: 0 mls/hr Admin: 09/19/17 06:50 Dose: 100 mls/hr Infusion: 09/18/17 23:57 Dose: 100 mls/hr Admin: 09/18/17 22:57 Dose: 100 mls/hr Infusion: 09/18/17 18:18 Dose: 100 mls/hr Admin: 09/18/17 17:18 Dose: 100 mls/hr Methocarbamol (Robaxin) 500 mg PO BIDP PRN PRN Reason: Muscle Spasm Last Admin: 09/19/17 20:04 Dose: 500 mg Tramadol HCl (Ultram) 50 mg PO Q6HP PRN PRN Reason: Pain Last Admin: 09/20/17 00:05 Dose: 50 mg Admin: 09/19/17 18:33 Dose: 50 mg Shift Summary 09/20/17 04:32 Shift Summary by Frances Chang Alert and oriented. Complained of left hip and back pain at start of shift, got order for home meds tramadol (x2) and robaxin (x1) that controlled that pain. Up every couple hours to the BR to void, wears attends for occ incontinence, needs help refastening them otherwise she is up independently with 4WW. 18G IV to RFA, patent, SL with intermittent antibiotics. Plan is to advance diet today and switch to PO antibiotics and d/c back to [place] if all goes well. Noted some redness under pannus and to groin and under left breast, placed interdry to pannus and NutraShield to other areas. Patient notes she also normally takes Claritin D every day to help with her numerous enviromental allergies and she has not had it since here, she states that the redness around her right eye is related to her allergies, she hopes to get some Claritin today. Initialized on 09/20/17 04:32 - END OF NOTE
== END 2017-09-20 10:05 | disposition home or self-care (01) ==
LOC: MEDSUR
PROVIDERS: ADMIT Surgery; ATTEND Surgery

== ENCOUNTER 2017-10-30 11:00 | Inpatient (IN) ==
[2017-10-30] MEDS ORDERED: ACETAMINOPHEN 325 MG TABLET PO PRN (11:25)
[2017-10-30] MEDS ORDERED: LEVOFLOXACIN 750 MG/150 ML BAG IV SCH (11:30)
[2017-10-30] MEDS ORDERED: 0.9 % SODIUM CHLORIDE 1,000 ML IV SCH (11:30)
[2017-10-30] MEDS ORDERED: ONDANSETRON 4 MG/2 ML VIAL IV PRN (11:36)
[2017-10-30] MEDS ORDERED: 0.9 % SODIUM CHLORIDE 250 ML IV SCH (11:45)
[2017-10-30 13:46] LABS: proBNP 207.6 pg/ml (0-450)
[2017-10-30] MEDS: CLINDAMYCIN 600 MG in 0.9 % SODIUM CHLORIDE 50 ML IV SCH ×2 (14:09→21:02)
[2017-10-30] MEDS: ERTAPENEM 1 GM in 0.9 % SODIUM CHLORIDE 50 ML IV SCH (15:21)
[2017-10-30] MEDS: 0.9 % SODIUM CHLORIDE 10 ML SYRINGE IV SCH ×2 (17:15→21:15)
[2017-10-30] MEDS: METHOCARBAMOL 500 MG TABLET PO PRN (21:01)
[2017-10-30] MEDS: HYDROmorphone 2 MG TABLET PO PRN (22:56)
[2017-10-31] MEDS: HYDROmorphone 2 MG TABLET PO PRN ×3 (05:15→20:28)
[2017-10-31] MEDS: CLINDAMYCIN 600 MG in 0.9 % SODIUM CHLORIDE 50 ML IV SCH ×3 (05:16→22:23)
[2017-10-31] MEDS: 0.9 % SODIUM CHLORIDE 10 ML SYRINGE IV SCH ×3 (05:41→22:23)
[2017-10-31 06:33] LABS: Mean Corpuscular HGB Conc 32.6 g/dL (31.0-36.0); Mean Corpuscular Hemoglobin 25.1 pg (26.0-34.0); Platelet Count 472 K/mcL (140-440); Red Cell Distribution Width 20.4 % (11.5-14.5)
[2017-10-31 06:53] LABS: ALT/SGPT 9 U/l (0-40); Albumin 3.5 gm/dL (3.2-5.2); Albumin/Globulin Ratio 1.2 (1.0-2.3); Alkaline Phosphatase 67 U/L (39-117); Bilirubin,Direct < 0.2 mg/dL (0.0-0.3); Blood Urea Nitrogen 18 mg/dl (8-23); Gamma Glutamyl Transpeptidase 18 U/L (5-36); Uric Acid 4.9 mg/dL (2.5-8.0)
[2017-10-31] MEDS: PANTOPRAZOLE 40 MG TABLET PO SCH (07:16)
[2017-10-31] MEDS ORDERED: PEG 3350/NA SULF,BICARB,CL/KCL 4,000 ML ORAL.SOL PO ONE (07:34)
[2017-10-31 07:36] LABS: Anisocytosis 1+ (NONE SEEN); Band Neutrophils % 1 % (0-10); Eosinophils % (Manual) 8 % (0-7); Hypochromasia 1+ (NONE SEEN); Lymphocytes % 33 % (15-49); Monocytes % (Manual) 9 % (1-12); Ovalocytes FEW (NONE SEEN); Platelet Estimate INCREASED (NORMAL); RBC Morphology ABNORM (NORMAL); Segmented Neutrophils % 49 % (38-78)
[2017-10-31 07:41] LABS: Erythrocyte Sedimentation Rate 44 mm/hr (0-20)
[2017-10-31] MEDS ORDERED: 0.9 % SODIUM CHLORIDE 250 ML IV SCH (07:45)
[2017-10-31] MEDS: POTASSIUM CHLORIDE 20 MEQ TABLET PO SCH ×2 (07:55→17:08)
[2017-10-31] MEDS ORDERED: FUROSEMIDE 20 MG/2 ML VIAL IV SCH (08:00)
[2017-10-31] MEDS: ERTAPENEM 1 GM in 0.9 % SODIUM CHLORIDE 50 ML IV SCH (09:20)
[2017-10-31] MEDS ORDERED: ALPRAZolam 0.25 MG TABLET PO PRN (10:12)
--- NOTE | 2017-10-31 10:12 | General Surgery Progress Note ---
Subjective Patient reports: feels better, tolerating liquids well, flatus, bowel movement, blood in stool, afebrile Narrative: Note initiated : 10/31/17 at 10:10 am Service Date, if different from initiated Date: [] Patient: Kenya Diamond 87 y/o F admitted on 10/30/17 for GI bleed. Chief Complaint: [Patient states that she feels stronger since she is received her 2 units of blood. Her hemoglobin is 8.8. She has moderate amount of left lower quadrant pain still. She is afebrile. Patient will receive 2 more units of blood since she is having ongoing bleeding and will bleed more during her bowel prep. The plan is still to proceed with colonoscopy in the morning. She will receive IV Lasix twice today to prevent volume overload.] Objective Temp Pulse Resp BP Pulse Ox 98.3 F 70 20 134/68 93 10/31/17 06:51 10/31/17 06:51 10/31/17 06:51 10/31/17 06:51 10/31/17 07:35 - Additional Data Intake & Output - Last 24 hours: Intake & Output 10/29/17 10/30/17 10/31/17 11/01/17 05:59 05:59 05:59 05:59 Intake Total 1462 / 1462 0 / 0 Output Total 2000 Balance -539 / -539 0 / 0 Weight 178 lb - General physical appearance moderate pain, chronically ill, obese - Eyes PERRL - ENT no congestion - Neck no masses, no venous distension - Respiratory normal expansion, normal respiratory effort, clear to auscultation - Cardiovascular Cardiovascular exam: Present: normal rate and rhythm, RRR, +S1, +S2. Absent: JVD, tachycardia - Abdomen tender (Mild tenderness in suprapubic area left lower quadrant; good active bowel sounds) - Rectum no hemorrhoids, no tenderness, no masses, no bleeding - Integumentary no rash, no growths, no abnormal pigmentation - Neurologic normal coordination, normal sensation - Psychiatric oriented to time, oriented to person, oriented to place, speech is normal, memory intact - Labs 10/31/17 04:36 10/31/17 04:36 Diabetes panel 10/31/17 Range/Units 04:36 Sodium 139 (133-145) mmol/L Potassium 4.2 (3.3-5.1) mmol/L Chloride 101 (96-108) mmol/L Carbon Dioxide 26 (22-30) mmol/L BUN 18 (8-23) mg/dl Creatinine 0.8 (0.6-1.1) mg/dl Glucose 77 (70-105) mg/dL Calcium 9.4 (8.6-10.4) mg/dl AST 17 (0-37) U/l ALT 9 (0-40) U/l Alkaline Phosphatase 67 (39-117) U/L Total Protein 6.5 (5.9-8.4) gm/dL Albumin 3.5 (3.2-5.2) gm/dL Triglycerides 93 (<150) mg/dl Calcium panel 10/31/17 Range/Units 04:36 Calcium 9.4 (8.6-10.4) mg/dl Phosphorus 4.0 (2.7-4.5) mg/dL Albumin 3.5 (3.2-5.2) gm/dL Pituitary panel 10/31/17 Range/Units 04:36 Sodium 139 (133-145) mmol/L Potassium 4.2 (3.3-5.1) mmol/L Chloride 101 (96-108) mmol/L Carbon Dioxide 26 (22-30) mmol/L BUN 18 (8-23) mg/dl Creatinine 0.8 (0.6-1.1) mg/dl Glucose 77 (70-105) mg/dL Calcium 9.4 (8.6-10.4) mg/dl Adrenal panel 10/31/17 Range/Units 04:36 Sodium 139 (133-145) mmol/L Potassium 4.2 (3.3-5.1) mmol/L Chloride 101 (96-108) mmol/L Carbon Dioxide 26 (22-30) mmol/L BUN 18 (8-23) mg/dl Creatinine 0.8 (0.6-1.1) mg/dl Glucose 77 (70-105) mg/dL Calcium 9.4 (8.6-10.4) mg/dl Total Bilirubin 0.5 (0.0-1.0) mg/dL AST 17 (0-37) U/l ALT 9 (0-40) U/l Alkaline Phosphatase 67 (39-117) U/L Total Protein 6.5 (5.9-8.4) gm/dL Albumin 3.5 (3.2-5.2) gm/dL Assessment and Plan (1) Iron deficiency anemia Status: Acute Assessment and plan: Transfuse 2 units of packed red cells Lasix 20 mg IV every 12 hours K-Dur 20 40 mEq twice daily Counseled for colonoscopy to be done in the morning Current Visit: No (2) Rectal bleeding Status: Acute Current Visit: No (3) Acute diverticulitis Status: Chronic Assessment and plan: Continue IV antibiotics Current Visit: No (4) Degenerative disc disease Status: Chronic Assessment and plan: Continue home meds as needed for pain Current Visit: No - Time Spent With Patient Total time spent is greater than 50% in coordination of care (as documented) at patient's floor/unit and/or counseling patient: 15 - 24 minutes
[2017-10-31] MEDS ORDERED: traMADol 50 MG TABLET PO PRN (10:18)
[2017-10-31] MEDS: ONDANSETRON 4 MG/2 ML VIAL IV PRN ×2 (13:20→19:52)
[2017-10-31] MEDS ORDERED: BISACODYL 5 MG TABLET PO ONE ×2 (20:11→20:13)
[2017-10-31] MEDS: FUROSEMIDE 20 MG/2 ML VIAL IV SCH (20:16)
[2017-10-31] MEDS: METHOCARBAMOL 500 MG TABLET PO PRN (20:28)
[2017-11-01] MEDS: HYDROmorphone 2 MG TABLET PO PRN ×4 (02:28→22:33)
[2017-11-01] MEDS: 0.9 % SODIUM CHLORIDE 10 ML SYRINGE IV SCH ×3 (05:10→22:20)
[2017-11-01] MEDS: CLINDAMYCIN 600 MG in 0.9 % SODIUM CHLORIDE 50 ML IV SCH ×3 (05:29→22:19)
[2017-11-01 08:07] LABS: Basophils # (Auto) 0 K/mcL (0.0-0.3); Basophils % (Auto) 0.4 % (0.0-2.0); Eosinophils # (Auto) 0.4 K/mcL (0.0-0.7); Eosinophils % (Auto) 4.9 % (0.0-7.0); Granulocytes % (Auto) 68.1 % (38.0-78.0); Lymphocytes # (Auto) 1.5 K/mcL (1.5-4.8); Lymphocytes % (Auto) 18.7 % (15.5-49.0); Mean Cell Volume 79.6 fL (80.0-100.0); Mean Corpuscular Hemoglobin 26.3 pg (26.0-34.0); Monocytes # (Auto) 0.6 K/mcL (0.1-0.9); Monocytes % (Auto) 7.9 % (1.0-12.0); Platelet Count 490 K/mcL (140-440); RBC 4.41 M/mcL (4.00-5.20); Red Cell Distribution Width 21.1 % (11.5-14.5)
[2017-11-01 08:33] LABS: ALT/SGPT 10 U/l (0-40); Albumin 3.6 gm/dL (3.2-5.2); Albumin/Globulin Ratio 1.1 (1.0-2.3); Alkaline Phosphatase 72 U/L (39-117); Blood Urea Nitrogen 13 mg/dl (8-23)
[2017-11-01] MEDS ORDERED: PROPOFOL 200 MG/20 ML VIAL IV ONE (10:10)
[2017-11-01] MEDS ORDERED: LIDOCAINE HCL/PF 100 MG/5 ML SYRINGE IV ONE (10:10)
--- NOTE | 2017-11-01 10:52 | Brief Operative Note ---
Date of procedure: 11/01/17 Pre-op diagnosis: diverticulitis;lower G I bleeding Post-op diagnosis: other (extensive diverticulosis; proctitis; cecal mass with bleeding) Procedure: colonoscopy with biopsies of cecal mass Grafts/Implants: No Anesthesia: MAC Findings: extensive wide mouth diverticulae of left colon; total colonic diverticulae; wide based confluent mass of cecum beside appendix opening; inflammation of rectum Complications: none Surgeon: Krystle Gerardo Specimens Removed/Pathology: other (cecal biopsies) Condition: stable Disposition: PACU
[2017-11-01] MEDS ORDERED: traMADol 50 MG TABLET PO PRN (11:34)
[2017-11-01] MEDS ORDERED: 0.9 % SODIUM CHLORIDE 1,000 ML IV SCH (11:34)
[2017-11-01] MEDS ORDERED: ALPRAZolam 0.25 MG TABLET PO PRN (11:34)
[2017-11-01] MEDS ORDERED: METHOCARBAMOL 500 MG TABLET PO PRN (11:34)
[2017-11-01] MEDS ORDERED: ONDANSETRON 4 MG/2 ML VIAL IV PRN (11:34)
[2017-11-01] MEDS ORDERED: ACETAMINOPHEN 325 MG TABLET PO PRN (11:34)
[2017-11-01] MEDS: ERTAPENEM 1 GM in 0.9 % SODIUM CHLORIDE 50 ML IV SCH ×2 (12:14→22:55)
[2017-11-01] MEDS: PANTOPRAZOLE 40 MG TABLET PO SCH (12:23)
[2017-11-01] MEDS: POTASSIUM CHLORIDE 20 MEQ TABLET PO SCH ×2 (12:23→17:25)
[2017-11-01] MEDS: FUROSEMIDE 20 MG/2 ML VIAL IV SCH ×2 (12:24→22:19)
[2017-11-02] MEDS: CLINDAMYCIN 600 MG in 0.9 % SODIUM CHLORIDE 50 ML IV SCH ×3 (05:52→22:53)
[2017-11-02] MEDS: 0.9 % SODIUM CHLORIDE 10 ML SYRINGE IV SCH ×4 (05:54→22:54)
[2017-11-02 07:18] LABS: Basophils # (Auto) 0 K/mcL (0.0-0.3); Basophils % (Auto) 0.5 % (0.0-2.0); Eosinophils # (Auto) 0.6 K/mcL (0.0-0.7); Granulocytes % (Auto) 57.4 % (38.0-78.0); Lymphocytes # (Auto) 1.9 K/mcL (1.5-4.8); Mean Cell Volume 79.4 fL (80.0-100.0); Mean Corpuscular HGB Conc 33.1 g/dL (31.0-36.0); Mean Corpuscular Hemoglobin 26.3 pg (26.0-34.0); Monocytes # (Auto) 0.7 K/mcL (0.1-0.9); Monocytes % (Auto) 9.1 % (1.0-12.0); Platelet Count 478 K/mcL (140-440); RBC 4.54 M/mcL (4.00-5.20); Red Cell Distribution Width 21.8 % (11.5-14.5)
[2017-11-02 07:45] LABS: ALT/SGPT 11 U/l (0-40); Albumin 3.6 gm/dL (3.2-5.2); Albumin/Globulin Ratio 1.1 (1.0-2.3); Alkaline Phosphatase 71 U/L (39-117); Bilirubin,Direct < 0.2 mg/dL (0.0-0.3); Blood Urea Nitrogen 13 mg/dl (8-23); Gamma Glutamyl Transpeptidase 19 U/L (5-36); Uric Acid 6.9 mg/dL (2.5-8.0)
[2017-11-02] MEDS: PANTOPRAZOLE 40 MG TABLET PO SCH ×2 (08:28→10:25)
[2017-11-02] MEDS: ERTAPENEM 1 GM in 0.9 % SODIUM CHLORIDE 50 ML IV SCH (09:25)
[2017-11-02] MEDS: FUROSEMIDE 20 MG/2 ML VIAL IV SCH (10:06)
[2017-11-02] MEDS: POTASSIUM CHLORIDE 20 MEQ TABLET PO SCH (10:25)
--- NOTE | 2017-11-02 12:10 | Surgical Pathology Report ---
HISTOLOGY SPECIMEN MICROSCOPIC DIAGNOSIS COLON, CECUM, BIOPSY: -- TUBULAR ADENOMA. -- NO HIGH GRADE DYSPLASIA OR MALIGNANCY IDENTIFIED. (RLF:guillef) CLINICAL HISTORY GI bleed. PROCEDURAL IMPRESSION Diverticulosis; proctitis; cecal mass with bleeding. GROSS DESCRIPTION Received in formalin labeled cecal biopsy, are five couch tissue fragments less than 0.1 to 0.6 cm. Totally submitted - one cassette. (GAS:sln) Electronically Signed by: Rosario Mar M.D.
[2017-11-02] MEDS ORDERED: LIDOCAINE HCL/PF 100 MG/5 ML SYRINGE IV ONE (13:10)
[2017-11-02] MEDS ORDERED: MIDAZOLAM 2 MG/2 ML VIAL IV ONE (13:10)
[2017-11-02] MEDS ORDERED: HYDROmorphone 2 MG/ML VIAL IV ONE (13:10)
[2017-11-02] MEDS ORDERED: DEXAMETHASONE 10 MG/ML VIAL IV ONE (13:10)
[2017-11-02] MEDS ORDERED: PROPOFOL 200 MG/20 ML VIAL IV ONE (13:10)
[2017-11-02] MEDS ORDERED: fentaNYL 250 MCG/5 ML VIAL IV ONE (13:10)
[2017-11-02] MEDS ORDERED: PHENYLEPHRINE 10 MG/ML VIAL IV ONE (13:10)
[2017-11-02] MEDS ORDERED: ONDANSETRON 4 MG/2 ML VIAL IV ONE (13:10)
[2017-11-02] MEDS ORDERED: ROCURONIUM 10 MG/ML ML IV ONE (13:10)
[2017-11-02] MEDS ORDERED: NALOXONE HCL 0.4 MG/ML VIAL IV PRN (14:38)
[2017-11-02] MEDS ORDERED: FLUMAZENIL 0.1 MG/ML ML IV PRN (14:38)
[2017-11-02] MEDS ORDERED: BENZOCAINE/MENTHOL 1 LOZENGE PO PRN (14:38)
[2017-11-02] MEDS ORDERED: LACTATED RINGERS 250 ML IV PRN (14:38)
[2017-11-02] MEDS ORDERED: IPRATROPIUM/ALBUTEROL 3 ML AMPUL.NEB NEB PRN (14:38)
[2017-11-02] MEDS ORDERED: METHOCARBAMOL 1,000 MG/10 ML VIAL IV PRN (14:38)
[2017-11-02] MEDS ORDERED: MEPERIDINE 25 MG/ML SYRINGE IV PRN (14:38)
[2017-11-02] MEDS ORDERED: ONDANSETRON 4 MG/2 ML VIAL IV PRN ×3 (14:38→15:57)
[2017-11-02] MEDS ORDERED: fentaNYL 100 MCG/2 ML VIAL IV PRN (14:38)
[2017-11-02] MEDS ORDERED: ACETAMINOPHEN 1,000 MG/100 ML BOTTLE IV ONE (14:38)
[2017-11-02] MEDS ORDERED: LACTATED RINGERS 1,000 ML IV SCH (14:45)
--- NOTE | 2017-11-02 14:45 | Brief Operative Note ---
Date of procedure: 11/02/17 Pre-op diagnosis: CECAL MASS Post-op diagnosis: other (CECAL MASS) Procedure: RIGHT COLECTOMY Grafts/Implants: No Anesthesia: GETA Findings: SOFT MASS IN TIP OF CECUM NEAR APPENDIX Complications: none Surgeon: Krystle Gerardo Estimated blood loss (cc): 50 Specimens Removed/Pathology: other (CECUM) Condition: stable Disposition: PACU
[2017-11-02] MEDS ORDERED: ALPRAZolam 0.25 MG TABLET PO PRN (15:57)
[2017-11-02] MEDS ORDERED: ACETAMINOPHEN 1,000 MG/100 ML BOTTLE IV PRN (15:57)
[2017-11-02] MEDS ORDERED: ACETAMINOPHEN 325 MG TABLET PO PRN (15:57)
[2017-11-02] MEDS ORDERED: 0.9 % SODIUM CHLORIDE 1,000 ML IV SCH (15:57)
[2017-11-02] MEDS ORDERED: LORazepam 2 MG/ML VIAL IV PRN (15:57)
[2017-11-02] MEDS: 0.9 % SODIUM CHLORIDE 1,000 ML IV SCH (16:18)
[2017-11-02] MEDS: PANTOPRAZOLE 40 MG VIAL IV SCH (17:22)
[2017-11-02] MEDS: METOCLOPRAMIDE 10 MG/2 ML VIAL IV SCH (17:22)
[2017-11-02] MEDS ORDERED: HEPARIN/NS 500 ML IV ONE ×2 (18:54→19:00)
[2017-11-02 19:16] LABS: ALT/SGPT 11 U/l (0-40); Albumin 3.4 gm/dL (3.2-5.2); Alkaline Phosphatase 71 U/L (39-117); Bilirubin,Direct < 0.2 mg/dL (0.0-0.3); Blood Urea Nitrogen 13 mg/dl (8-23); Gamma Glutamyl Transpeptidase 19 U/L (5-36)
[2017-11-02] MEDS: HYDROmorphone 2 MG/ML VIAL IV PRN (20:37)
[2017-11-03] MEDS: HYDROmorphone 2 MG/ML VIAL IV PRN ×4 (00:08→19:16)
[2017-11-03] MEDS: METOCLOPRAMIDE 10 MG/2 ML VIAL IV SCH ×5 (00:32→23:35)
[2017-11-03] MEDS: ALBUMIN HUMAN 12.5 GM/50 ML BAG IV SCH ×4 (01:26→22:34)
[2017-11-03] MEDS: 0.9 % SODIUM CHLORIDE 1,000 ML IV SCH ×5 (02:15→22:35)
[2017-11-03] MEDS: CLINDAMYCIN 600 MG in 0.9 % SODIUM CHLORIDE 50 ML IV SCH ×3 (05:31→22:34)
[2017-11-03] MEDS: 0.9 % SODIUM CHLORIDE 10 ML SYRINGE IV SCH ×4 (05:31→22:35)
[2017-11-03 06:06] LABS: Basophils # (Auto) 0 K/mcL (0.0-0.3); Basophils % (Auto) 0 % (0.0-2.0); Eosinophils # (Auto) 0.3 K/mcL (0.0-0.7); Eosinophils % (Auto) 2.4 % (0.0-7.0); Granulocytes % (Auto) 83.9 % (38.0-78.0); Lymphocytes # (Auto) 0.9 K/mcL (1.5-4.8); Lymphocytes % (Auto) 6.7 % (15.5-49.0); Mean Cell Volume 80.4 fL (80.0-100.0); Mean Corpuscular HGB Conc 32.2 g/dL (31.0-36.0); Mean Corpuscular Hemoglobin 25.9 pg (26.0-34.0); Monocytes # (Auto) 0.9 K/mcL (0.1-0.9); Platelet Count 484 K/mcL (140-440); RBC 4.22 M/mcL (4.00-5.20); Red Cell Distribution Width 21.7 % (11.5-14.5)
[2017-11-03 06:21] LABS: ALT/SGPT 9 U/l (0-40); Albumin 3.4 gm/dL (3.2-5.2); Albumin/Globulin Ratio 1.1 (1.0-2.3); Alkaline Phosphatase 62 U/L (39-117); Bilirubin,Direct < 0.2 mg/dL (0.0-0.3); Blood Urea Nitrogen 18 mg/dl (8-23); Gamma Glutamyl Transpeptidase 18 U/L (5-36); Uric Acid 7.9 mg/dL (2.5-8.0)
[2017-11-03] MEDS: PANTOPRAZOLE 40 MG VIAL IV SCH ×2 (07:45→17:12)
[2017-11-03] MEDS ORDERED: ERTAPENEM 1 GM in 0.9 % SODIUM CHLORIDE 50 ML IV SCH (09:00)
--- NOTE | 2017-11-03 10:23 | XRay Report ---
CLINICAL INFORMATION: NG placement COMPARISON: None. FINDINGS: NG tube is looped in the gastric body with the tip redirected towards the gastric fundus. Stool gas pattern grossly normal. No free air. Right IJ central line in satisfactory position - tip in the SVC/right atrial junction. Heart is mildly enlarged, but stable. Mediastinum and pulmonary vessels are normal. Lungs are clear IMPRESSION: NG tube is looped in the stomach with sidehole in the gastric body and the tip of the gastric fundus.. Interpreted and Authenticated by: Nuno Roche 11/03/17
[2017-11-03] MEDS ORDERED: ALBUMIN HUMAN 12.5 GM/50 ML BAG IV PRN (12:00)
--- NOTE | 2017-11-03 12:41 | General Surgery Progress Note ---
Subjective Patient reports: feels better, pain is less, afebrile Narrative: Note initiated : 11/03/17 at 12:39 pm Service Date, if different from initiated Date: [] Patient: Kenya Diamond 87 y/o F admitted on 10/30/17 for GI Bleed. Chief Complaint: [Patient is doing very well. She has minimal abdominal discomfort. Her vital signs have been stable. Her urine output is less than 30 cc/h but is starting to improve with the infusion of albumin. She does not have any respiratory difficulty and she denies chest discomfort. Her hemoglobin is stable.] Objective Temp Pulse Resp BP Pulse Ox 97.8 F 77 12 126/64 96 11/03/17 07:50 11/03/17 11:01 11/03/17 11:01 11/03/17 11:01 11/03/17 11:01 - Additional Data Intake & Output - Last 24 hours: Intake & Output 11/01/17 11/02/17 11/03/17 11/04/17 05:59 05:59 05:59 05:59 Intake Total 1963 / 1963 212 / 212 2618 / 2618 871 / 871 Output Total 4975 / 4975 2250 / 2250 1330 / 1330 185 / 185 Balance -3011 / -3011 -2038 / -2038 1288 / 1288 686 / 686 Weight 166 lb 171 lb 176 lb 6.4 oz 176 lb 6.4 oz - General physical appearance well developed, well nourished, no distress - Eyes PERRL, normal ocular movement - ENT normal pinna, normal nares, normal mucosa, no hearing loss, no congestion - Neck no masses, no bruits, trachea midline, no lymphadectomy, no venous distension - Respiratory normal expansion, normal respiratory effort, clear to percussion, clear to auscultation, other (No rales rhonchi or wheezes) - Cardiovascular Cardiovascular exam: Present: normal rate and rhythm, RRR, +S1, +S2. Absent: JVD - Abdomen tender (Mild incisional tenderness with hypoactive bowel sounds), bowel sounds ( present), surgical scars (none), masses (none) - Integumentary no rash, no growths, no abnormal pigmentation - Neurologic normal coordination, normal sensation - Psychiatric oriented to time, oriented to person, oriented to place, speech is normal, memory intact - Labs 11/03/17 04:00 11/03/17 04:00 Diabetes panel 11/02/17 11/03/17 Range/Units 16:08 04:00 Sodium 136 140 (133-145) mmol/L Potassium 3.7 4.3 (3.3-5.1) mmol/L Chloride 97 102 (96-108) mmol/L Carbon Dioxide 26 25 (22-30) mmol/L BUN 13 18 (8-23) mg/dl Creatinine 1.0 1.2 H (0.6-1.1) mg/dl Glucose 144 H 116 H (70-105) mg/dL Calcium 8.7 8.7 (8.6-10.4) mg/dl AST 21 19 (0-37) U/l ALT 11 9 (0-40) U/l Alkaline Phosphatase 71 62 (39-117) U/L Total Protein 6.7 6.5 (5.9-8.4) gm/dL Albumin 3.4 3.4 (3.2-5.2) gm/dL Triglycerides 82 60 (<150) mg/dl Calcium panel 11/02/17 11/03/17 Range/Units 16:08 04:00 Calcium 8.7 8.7 (8.6-10.4) mg/dl Phosphorus 3.2 4.4 (2.7-4.5) mg/dL Albumin 3.4 3.4 (3.2-5.2) gm/dL Pituitary panel 11/02/17 11/03/17 Range/Units 16:08 04:00 Sodium 136 140 (133-145) mmol/L Potassium 3.7 4.3 (3.3-5.1) mmol/L Chloride 97 102 (96-108) mmol/L Carbon Dioxide 26 25 (22-30) mmol/L BUN 13 18 (8-23) mg/dl Creatinine 1.0 1.2 H (0.6-1.1) mg/dl Glucose 144 H 116 H (70-105) mg/dL Calcium 8.7 8.7 (8.6-10.4) mg/dl Adrenal panel 11/02/17 11/03/17 Range/Units 16:08 04:00 Sodium 136 140 (133-145) mmol/L Potassium 3.7 4.3 (3.3-5.1) mmol/L Chloride 97 102 (96-108) mmol/L Carbon Dioxide 26 25 (22-30) mmol/L BUN 13 18 (8-23) mg/dl Creatinine 1.0 1.2 H (0.6-1.1) mg/dl Glucose 144 H 116 H (70-105) mg/dL Calcium 8.7 8.7 (8.6-10.4) mg/dl Total Bilirubin 0.4 0.5 (0.0-1.0) mg/dL AST 21 19 (0-37) U/l ALT 11 9 (0-40) U/l Alkaline Phosphatase 71 62 (39-117) U/L Total Protein 6.7 6.5 (5.9-8.4) gm/dL Albumin 3.4 3.4 (3.2-5.2) gm/dL Assessment and Plan (1) Iron deficiency anemia Status: Acute Assessment and plan: Human albumin 12.5 g every 6 hours 4 more doses Continue IV normal saline at 100 cc/h Current Visit: No (2) Rectal bleeding Status: Resolved Current Visit: No (3) Acute diverticulitis Status: Chronic Assessment and plan: Continue IV antibiotics Current Visit: No (4) Degenerative disc disease Status: Chronic Assessment and plan: Continue home meds as needed for pain Current Visit: No - Time Spent With Patient Total time spent is greater than 50% in coordination of care (as documented) at patient's floor/unit and/or counseling patient:
[2017-11-03] MEDS ORDERED: LORazepam 2 MG/ML VIAL IV PRN (12:50)
[2017-11-03] MEDS ORDERED: 0.9 % SODIUM CHLORIDE 1,000 ML IV SCH (12:50)
[2017-11-03] MEDS ORDERED: ONDANSETRON 4 MG/2 ML VIAL IV PRN (12:50)
[2017-11-03] MEDS ORDERED: ALPRAZolam 0.25 MG TABLET PO PRN (12:50)
[2017-11-03] MEDS ORDERED: OXYMETAZOLINE 1 SPRAY BOTTLE NAS PRN (12:55)
[2017-11-03] MEDS ORDERED: ALBUMIN HUMAN 12.5 GM/50 ML BAG IV SCH (13:15)
[2017-11-03] MEDS: OXYMETAZOLINE 1 SPRAY BOTTLE NAS PRN (17:11)
[2017-11-04] MEDS: 0.9 % SODIUM CHLORIDE 1,000 ML IV SCH ×3 (01:39→16:19)
[2017-11-04] MEDS: METOCLOPRAMIDE 10 MG/2 ML VIAL IV SCH ×4 (05:05→23:34)
[2017-11-04] MEDS: ALBUMIN HUMAN 12.5 GM/50 ML BAG IV SCH ×4 (05:06→22:58)
[2017-11-04] MEDS: 0.9 % SODIUM CHLORIDE 10 ML SYRINGE IV SCH ×3 (05:06→21:43)
[2017-11-04] MEDS: CLINDAMYCIN 600 MG in 0.9 % SODIUM CHLORIDE 50 ML IV SCH ×3 (05:06→21:40)
[2017-11-04 05:54] LABS: Basophils # (Auto) 0 K/mcL (0.0-0.3); Basophils % (Auto) 0.4 % (0.0-2.0); Eosinophils # (Auto) 0.5 K/mcL (0.0-0.7); Eosinophils % (Auto) 6.5 % (0.0-7.0); Granulocytes % (Auto) 68.7 % (38.0-78.0); Lymphocytes # (Auto) 1.3 K/mcL (1.5-4.8); Lymphocytes % (Auto) 15.9 % (15.5-49.0); Mean Cell Volume 79.9 fL (80.0-100.0); Mean Corpuscular HGB Conc 32.2 g/dL (31.0-36.0); Mean Corpuscular Hemoglobin 25.7 pg (26.0-34.0); Monocytes # (Auto) 0.7 K/mcL (0.1-0.9); Monocytes % (Auto) 8.5 % (1.0-12.0); Platelet Count 340 K/mcL (140-440); RBC 3.43 M/mcL (4.00-5.20)
[2017-11-04 06:04] LABS: ALT/SGPT 6 U/l (0-40); Albumin 3.5 gm/dL (3.2-5.2); Albumin/Globulin Ratio 1.5 (1.0-2.3); Alkaline Phosphatase 48 U/L (39-117); Bilirubin,Direct < 0.2 mg/dL (0.0-0.3); Blood Urea Nitrogen 17 mg/dl (8-23); Gamma Glutamyl Transpeptidase 12 U/L (5-36); Uric Acid 7.2 mg/dL (2.5-8.0)
[2017-11-04] MEDS: PANTOPRAZOLE 40 MG VIAL IV SCH ×2 (07:44→16:38)
[2017-11-04] MEDS ORDERED: ERTAPENEM 1 GM in 0.9 % SODIUM CHLORIDE 50 ML IV SCH (09:00)
[2017-11-04] MEDS: OXYMETAZOLINE 1 SPRAY BOTTLE NAS PRN ×2 (09:37→19:09)
[2017-11-04] MEDS: ACETAMINOPHEN 1,000 MG/100 ML BOTTLE IV PRN ×2 (09:38→21:03)
--- NOTE | 2017-11-04 12:36 | General Surgery Progress Note ---
Subjective Patient reports: feels better, pain is less, no flatus, no bowel movement, afebrile Narrative: Note initiated : 11/04/17 at 12:35 pm Service Date, if different from initiated Date: [] Patient: Kenya Diamond 87 y/o F admitted on 10/30/17 for GI Bleed. Chief Complaint: [Patient continues to do well. She has not had any nausea. She is complaining of the nasogastric tube. She thinks she might have passed flatus but she has not had a bowel movement. Her incisional discomfort is well controlled. She denies chest pain or shortness of breath. She is afebrile.] Objective Temp Pulse Resp BP Pulse Ox 97.6 F 70 16 138/75 96 11/04/17 11:52 11/04/17 04:02 11/04/17 11:52 11/04/17 11:52 11/04/17 11:52 - Additional Data Intake & Output - Last 24 hours: Intake & Output 11/02/17 11/03/17 11/04/17 11/05/17 05:59 05:59 05:59 05:59 Intake Total 212 / 212 2618 / 2618 2566 / 2566 150 / 150 Output Total 2250 / 2250 1330 / 1330 1448 / 1448 360 / 360 Balance -2038 / -2038 1288 / 1288 1118 / 1118 -210 / -210 Weight 171 lb 176 lb 6.4 oz 180 lb - General physical appearance well developed, well nourished, no distress, moderate pain - Eyes PERRL, normal ocular movement - ENT no congestion - Neck no venous distension - Respiratory normal respiratory effort, clear to auscultation - Cardiovascular Cardiovascular exam: Present: normal rate and rhythm, RRR, +S1, +S2, tachycardia. Absent: JVD - Abdomen tender (Mild tenderness along incision but otherwise unremarkable; she has early return of intestinal activity with good bowel sounds), bowel sounds ( present), surgical scars (none), masses (none) - Integumentary no rash, no growths, no abnormal pigmentation - Neurologic normal coordination, normal sensation - Musculoskeletal other (Patient has not ambulated so far) - Psychiatric oriented to time, oriented to person, oriented to place, speech is normal, memory intact - Labs 11/06/17 04:48 11/07/17 05:12 Diabetes panel 11/04/17 Range/Units 04:00 Sodium 144 (133-145) mmol/L Potassium 3.7 (3.3-5.1) mmol/L Chloride 107 (96-108) mmol/L Carbon Dioxide 27 (22-30) mmol/L BUN 17 (8-23) mg/dl Creatinine 0.8 (0.6-1.1) mg/dl Glucose 77 (70-105) mg/dL Calcium 8.4 L (8.6-10.4) mg/dl AST 14 (0-37) U/l ALT 6 (0-40) U/l Alkaline Phosphatase 48 (39-117) U/L Total Protein 5.8 L (5.9-8.4) gm/dL Albumin 3.5 (3.2-5.2) gm/dL Triglycerides 80 (<150) mg/dl Calcium panel 11/04/17 Range/Units 04:00 Calcium 8.4 L (8.6-10.4) mg/dl Phosphorus 2.4 L (2.7-4.5) mg/dL Albumin 3.5 (3.2-5.2) gm/dL Pituitary panel 11/04/17 Range/Units 04:00 Sodium 144 (133-145) mmol/L Potassium 3.7 (3.3-5.1) mmol/L Chloride 107 (96-108) mmol/L Carbon Dioxide 27 (22-30) mmol/L BUN 17 (8-23) mg/dl Creatinine 0.8 (0.6-1.1) mg/dl Glucose 77 (70-105) mg/dL Calcium 8.4 L (8.6-10.4) mg/dl Adrenal panel 11/04/17 Range/Units 04:00 Sodium 144 (133-145) mmol/L Potassium 3.7 (3.3-5.1) mmol/L Chloride 107 (96-108) mmol/L Carbon Dioxide 27 (22-30) mmol/L BUN 17 (8-23) mg/dl Creatinine 0.8 (0.6-1.1) mg/dl Glucose 77 (70-105) mg/dL Calcium 8.4 L (8.6-10.4) mg/dl Total Bilirubin 0.6 (0.0-1.0) mg/dL AST 14 (0-37) U/l ALT 6 (0-40) U/l Alkaline Phosphatase 48 (39-117) U/L Total Protein 5.8 L (5.9-8.4) gm/dL Albumin 3.5 (3.2-5.2) gm/dL Assessment and Plan (1) Mass of cecum Status: Acute Assessment and plan: Stable postoperative day Continue present therapy Current Visit: Yes (2) Iron deficiency anemia Status: Chronic Assessment and plan: Human albumin 12.5 g every 6 hours 4 more doses Continue IV normal saline at 100 cc/h replace K and phos Current Visit: No (3) Acute diverticulitis Status: Chronic Assessment and plan: Continue IV antibiotics Current Visit: No (4) Degenerative disc disease Status: Chronic Assessment and plan: Continue home meds as needed for pain Current Visit: No - Time Spent With Patient Total time spent is greater than 50% in coordination of care (as documented) at patient's floor/unit and/or counseling patient:
[2017-11-04] MEDS ORDERED: MAGNESIUM SULFATE 32.48 MEQ in DEXTROSE 5% IN WATER 100 ML IV ONE (13:00)
[2017-11-04] MEDS ORDERED: POTASSIUM PHOSPHATE 40 MEQ in DEXTROSE 5% IN WATER 500 ML IV SCH ×2 (13:00→17:00)
[2017-11-04] MEDS ORDERED: LORazepam 2 MG/ML VIAL IV PRN (14:43)
[2017-11-04] MEDS ORDERED: HYDROmorphone 2 MG/ML VIAL IV PRN (14:43)
[2017-11-04] MEDS ORDERED: 0.9 % SODIUM CHLORIDE 1,000 ML IV SCH (14:43)
[2017-11-04] MEDS ORDERED: ONDANSETRON 4 MG/2 ML VIAL IV PRN (14:43)
[2017-11-04] MEDS ORDERED: ALPRAZolam 0.25 MG TABLET PO PRN (14:43)
[2017-11-05] MEDS: 0.9 % SODIUM CHLORIDE 1,000 ML IV SCH ×4 (04:26→22:00)
[2017-11-05] MEDS: ALBUMIN HUMAN 12.5 GM/50 ML BAG IV SCH (04:59)
[2017-11-05 05:28] LABS: Basophils # (Auto) 0 K/mcL (0.0-0.3); Basophils % (Auto) 0.2 % (0.0-2.0); Eosinophils # (Auto) 0.6 K/mcL (0.0-0.7); Eosinophils % (Auto) 6.8 % (0.0-7.0); Lymphocytes # (Auto) 1.1 K/mcL (1.5-4.8); Lymphocytes % (Auto) 13.3 % (15.5-49.0); Mean Corpuscular HGB Conc 32.6 g/dL (31.0-36.0); Mean Corpuscular Hemoglobin 25.7 pg (26.0-34.0); Monocytes # (Auto) 0.5 K/mcL (0.1-0.9); Monocytes % (Auto) 5.7 % (1.0-12.0); Platelet Count 315 K/mcL (140-440); RBC 3.48 M/mcL (4.00-5.20); Red Cell Distribution Width 21.9 % (11.5-14.5)
[2017-11-05] MEDS: CLINDAMYCIN 600 MG in 0.9 % SODIUM CHLORIDE 50 ML IV SCH ×3 (05:32→22:00)
[2017-11-05] MEDS: METOCLOPRAMIDE 10 MG/2 ML VIAL IV SCH ×3 (05:32→17:23)
[2017-11-05] MEDS: 0.9 % SODIUM CHLORIDE 10 ML SYRINGE IV SCH ×3 (05:32→22:01)
[2017-11-05 05:47] LABS: ALT/SGPT 6 U/l (0-40); Albumin 3.8 gm/dL (3.2-5.2); Albumin/Globulin Ratio 1.8 (1.0-2.3); Alkaline Phosphatase 43 U/L (39-117); Bilirubin,Direct < 0.2 mg/dL (0.0-0.3); Blood Urea Nitrogen 11 mg/dl (8-23); Gamma Glutamyl Transpeptidase 10 U/L (5-36); Uric Acid 6.1 mg/dL (2.5-8.0)
[2017-11-05] MEDS: PANTOPRAZOLE 40 MG VIAL IV SCH ×2 (07:12→17:23)
[2017-11-05] MEDS: ACETAMINOPHEN 1,000 MG/100 ML BOTTLE IV PRN ×2 (08:25→21:04)
[2017-11-05] MEDS: ERTAPENEM 1 GM in 0.9 % SODIUM CHLORIDE 50 ML IV SCH (09:36)
[2017-11-05] MEDS: OXYMETAZOLINE 1 SPRAY BOTTLE NAS PRN (09:37)
--- NOTE | 2017-11-05 13:42 | Surgical Pathology Report ---
HISTOLOGY SPECIMEN MICROSCOPIC DIAGNOSIS COLON, RIGHT, TERMINAL ILEUM AND APPENDIX, PARTIAL COLECTOMY, TERMINAL ILEECTOMY AND APPENDECTOMY: -- TUBULOVILLOUS ADENOMA. - 3 cm IN GREATEST DIMENSION, - LOCATION: CECUM/APPENDICEAL ORIFICE. -- BACKGROUND COLONIC MUCOSA WITH NO DIAGNOSTIC ALTERATIONS. -- TERMINAL ILEUM: NO DIAGNOSTIC ALTERATIONS. -- APPENDIX: NO DIAGNOSTIC ALTERATIONS. -- FIVE BENIGN LYMPH NODES. -- MARGINS FREE OF DYSPLASIA. -- NO HIGH GRADE DYSPLASIA OR MALIGNANCY IDENTIFIED. (RLF:djf) CLINICAL HISTORY Soft mass in tip of cecum near appendix. PROCEDURAL IMPRESSION Right bowel obstruction. GROSS DESCRIPTION Received in formalin labeled right bowel obstruction, is a segment of terminal ileum, cecum and appendix. The segment of terminal ileum measures 2.5 cm in length, is closed with a staple line measuring 2.3 cm in length and has a diameter of 1.7 cm. The section of cecum is approximately 9 cm in length with diameter ranging from 4.5 to 3 cm and is closed with a staple line at the distal margin. The appendix is couch-pink with smooth serosal surface, measures 4.2 cm in length and 0.4-0.7 cm in diameter. Upon opening, there is a polypoid mass lesion present at the appendiceal orifice that measures 3 x 2.8 by up to 1 cm. The polypoid lesion is 2 cm from the proximal and 8 cm from the distal margin. The polypoid mass is 3.5 cm from the fat margin. Distal to this polypoid lesion the cecal surface has a region of loss of folds with a slightly granular surface, measuring 3 x 2 cm. The background colonic mucosa is couch with mucosal folds and no additional lesion is identified. The ileal mucosa is couch and unremarkable. No gross appendiceal lesions are identified. There is attached yellow-couch fatty tissue with a few candidate lymph nodes. [employer] Chi[employer] sections, including the majority of the polypoid mass, are submitted as follows: A1 - proximal and distal margin and appendix; A2-A4 - sections of mass including proximal appendix; A5-A7 - additional polypoid mass lesion; A8 - flattened granular region of colon; A9 - background unremarkable colon; A10 - five candidate nodes, one inked black and bisected; A11 - one candidate node, trisected. (RLF:adj) Electronically Signed by: Rosario Mar M.D.
--- NOTE | 2017-11-05 14:52 | General Surgery Progress Note ---
Subjective Patient reports: feels better, pain is less, flatus, bowel movement, afebrile Narrative: Note initiated : 11/05/17 at 2:50 pm Service Date, if different from initiated Date: [] Patient: Kenya Diamond 87 y/o F admitted on 10/30/17 for GI Bleed. Chief Complaint: [Mrs. Diamond is doing well. She denies chest pain or shortness of breath. She has had flatus and 2 witnessed bowel movements. Her abdominal pain is significantly improved. She has been afebrile.] Objective Temp Pulse Resp BP Pulse Ox 99.4 F H 63 24 H 120/74 95 11/05/17 12:00 11/05/17 12:00 11/05/17 12:00 11/05/17 12:00 11/05/17 12:00 - Additional Data Intake & Output - Last 24 hours: Intake & Output 11/03/17 11/04/17 11/05/17 11/06/17 05:59 05:59 05:59 05:59 Intake Total 2618 / 2618 2566 / 2566 2659.1818 / 2659.1818 154 / 154 Output Total 1330 / 1330 1448 / 1448 2035 / 2035 Balance 1288 / 1288 1118 / 2068 032.8234 / 624.1818 154 / 154 Weight 176 lb 6.4 oz 180 lb 183 lb - General physical appearance well developed, well nourished, no distress - Eyes PERRL, normal ocular movement - ENT normal pinna, normal nares, normal mucosa, no hearing loss, no congestion - Neck no venous distension - Respiratory normal expansion, normal respiratory effort, clear to percussion, clear to auscultation - Cardiovascular Cardiovascular exam: Present: normal rate and rhythm, RRR, +S1, +S2. Absent: irregular rhythm, JVD - Abdomen non tender, bowel sounds (present), surgical scars (Incision is healing uneventfully; there is no erythema or induration; she has good active bowel sounds), masses (none) - Integumentary no rash, no growths, no abnormal pigmentation - Neurologic normal coordination, normal sensation - Musculoskeletal other (Able to ambulate short distances with front wheel walker and assistance) - Psychiatric oriented to time, oriented to person, oriented to place, speech is normal, memory intact - Labs 11/05/17 04:00 11/05/17 04:00 Diabetes panel 11/05/17 Range/Units 04:00 Sodium 141 (133-145) mmol/L Potassium 4.0 (3.3-5.1) mmol/L Chloride 104 (96-108) mmol/L Carbon Dioxide 25 (22-30) mmol/L BUN 11 (8-23) mg/dl Creatinine 0.8 (0.6-1.1) mg/dl Glucose 92 (70-105) mg/dL Calcium 8.6 (8.6-10.4) mg/dl AST 11 (0-37) U/l ALT 6 (0-40) U/l Alkaline Phosphatase 43 (39-117) U/L Total Protein 5.9 (5.9-8.4) gm/dL Albumin 3.8 (3.2-5.2) gm/dL Triglycerides 89 (<150) mg/dl Calcium panel 11/05/17 Range/Units 04:00 Calcium 8.6 (8.6-10.4) mg/dl Phosphorus 2.8 (2.7-4.5) mg/dL Albumin 3.8 (3.2-5.2) gm/dL Pituitary panel 11/05/17 Range/Units 04:00 Sodium 141 (133-145) mmol/L Potassium 4.0 (3.3-5.1) mmol/L Chloride 104 (96-108) mmol/L Carbon Dioxide 25 (22-30) mmol/L BUN 11 (8-23) mg/dl Creatinine 0.8 (0.6-1.1) mg/dl Glucose 92 (70-105) mg/dL Calcium 8.6 (8.6-10.4) mg/dl Adrenal panel 11/05/17 Range/Units 04:00 Sodium 141 (133-145) mmol/L Potassium 4.0 (3.3-5.1) mmol/L Chloride 104 (96-108) mmol/L Carbon Dioxide 25 (22-30) mmol/L BUN 11 (8-23) mg/dl Creatinine 0.8 (0.6-1.1) mg/dl Glucose 92 (70-105) mg/dL Calcium 8.6 (8.6-10.4) mg/dl Total Bilirubin 0.8 (0.0-1.0) mg/dL AST 11 (0-37) U/l ALT 6 (0-40) U/l Alkaline Phosphatase 43 (39-117) U/L Total Protein 5.9 (5.9-8.4) gm/dL Albumin 3.8 (3.2-5.2) gm/dL Assessment and Plan (1) Iron deficiency anemia Status: Acute Assessment and plan: Decrease IV to 50 cc/h Discontinue nasogastric tube Clear liquid diet Case management for rehab or SNF short-term placement Current Visit: No (2) Acute diverticulitis Status: Chronic Assessment and plan: Continue IV antibiotics Current Visit: No (3) Degenerative disc disease Status: Chronic Assessment and plan: Continue home meds as needed for pain Current Visit: No - Time Spent With Patient Total time spent is greater than 50% in coordination of care (as documented) at patient's floor/unit and/or counseling patient:
--- NOTE | 2017-11-05 16:10 | Operative Note ---
DATE OF OPERATION: 11/01/2017 PREOPERATIVE DIAGNOSIS: Diverticulitis with lower GI bleed. POSTOPERATIVE DIAGNOSES: Extensive diverticulosis, moderate proctitis, cecal mass with bleeding. PROCEDURE: Colonoscopy with biopsy of cecal mass. SURGEON: Krystle Gerardo M.D. FINDINGS: Extensive wide-mouth diverticula of the left colon with total colonic diverticula extending to the cecum, wide confluent mass of the cecum beside the appendiceal opening, inflammation of the rectum. DESCRIPTION: Under general anesthesia, the patient turned to the left lateral decubitus position. A timeout procedure was carried out as per protocol. Digital examination of the anus was unremarkable. There was no blood on the examining finger. Scope was introduced into the rectum and inflammation of the rectum was noted, but there was no active bleeding. There were multiple wide-mouth diverticula, and there was a mild stenosis of the sigmoid colon. Scope was maneuvered through this up to the splenic flexure. The transverse colon and the descending colon were normal but the openings of the diverticula were not as prominent. In the cecum, I could see a wide-based granular-appearing, confluent mass in the cecum lateral to the opening of the appendix. It was bleeding at the time with constant ooze. Multiple biopsies of the mass were taken. The scope was gradually withdrawn. No other pathology was noted except for extensive wide-mouth diverticula of the left side. There was mild inflammation of the rectum noted. The patient tolerated the procedure well. She was awakened and transferred to the postanesthetic care unit in stable, satisfactory condition. LCS:brandon Job ID: [id number] Doc ID: [id number] Krystle Gerardo M.D. MTDD
[2017-11-06] MEDS: METOCLOPRAMIDE 10 MG/2 ML VIAL IV SCH ×5 (00:11→23:17)
[2017-11-06] MEDS: CLINDAMYCIN 600 MG in 0.9 % SODIUM CHLORIDE 50 ML IV SCH ×3 (05:24→21:55)
[2017-11-06] MEDS: 0.9 % SODIUM CHLORIDE 10 ML SYRINGE IV SCH ×4 (05:24→23:17)
[2017-11-06 06:12] LABS: Basophils # (Auto) 0 K/mcL (0.0-0.3); Basophils % (Auto) 0.5 % (0.0-2.0); Eosinophils # (Auto) 0.6 K/mcL (0.0-0.7); Eosinophils % (Auto) 8.9 % (0.0-7.0); Granulocytes % (Auto) 63.7 % (38.0-78.0); Lymphocytes # (Auto) 1.3 K/mcL (1.5-4.8); Lymphocytes % (Auto) 18.5 % (15.5-49.0); Mean Cell Volume 79.2 fL (80.0-100.0); Mean Corpuscular HGB Conc 32.6 g/dL (31.0-36.0); Mean Corpuscular Hemoglobin 25.8 pg (26.0-34.0); Monocytes # (Auto) 0.6 K/mcL (0.1-0.9); Monocytes % (Auto) 8.4 % (1.0-12.0); Platelet Count 285 K/mcL (140-440); RBC 3.48 M/mcL (4.00-5.20)
[2017-11-06 06:33] LABS: ALT/SGPT 6 U/l (0-40); Albumin 3.5 gm/dL (3.2-5.2); Albumin/Globulin Ratio 1.5 (1.0-2.3); Alkaline Phosphatase 44 U/L (39-117); Bilirubin,Direct < 0.2 mg/dL (0.0-0.3); Blood Urea Nitrogen 8 mg/dl (8-23); Gamma Glutamyl Transpeptidase 11 U/L (5-36); Uric Acid 5.6 mg/dL (2.5-8.0)
[2017-11-06] MEDS: PANTOPRAZOLE 40 MG VIAL IV SCH ×2 (07:56→17:45)
[2017-11-06] MEDS: 0.9 % SODIUM CHLORIDE 1,000 ML IV SCH ×2 (08:35→12:41)
[2017-11-06] MEDS: ERTAPENEM 1 GM in 0.9 % SODIUM CHLORIDE 50 ML IV SCH (10:01)
[2017-11-06] MEDS: ACETAMINOPHEN 1,000 MG/100 ML BOTTLE IV PRN ×2 (12:36→21:08)
--- NOTE | 2017-11-06 14:02 | Operative Note ---
DATE OF OPERATION: 10/30/2017 PREOPERATIVE DIAGNOSIS: Cecal mass. POSTOPERATIVE DIAGNOSIS: Cecal mass. PROCEDURE: Right colectomy. SURGEON: Krystle Gerardo MD DESCRIPTION OF PROCEDURE: Under general anesthesia, the patient's abdomen was prepped and draped in a sterile field. A timeout procedure was carried out as per protocol. A midline incision was made above and below the umbilicus. Exploration of the abdomen did not reveal any gross pathology. The cecum was mobilized along its lateral attachments. It was mobilized up to the hepatic flexure. Palpation of the tip of the cecum revealed a soft mobile mass in the tip of the cecum near the appendix. The terminal ileum was divided with a contour stapler immediately proximal to the ileocecal valve. The ascending colon was divided and the distal third of the ascending colon with a contour stapler. The mesentery was then sterilely clamped and divided. The specimen was passed off. The vessels of the mesentery were controlled with ties of 2-0 silk. Hemostasis was achieved. Amsr-fb-daue anastomosis was performed using JENNIFER 55 stapler and a TA 60 stapler. The staple line was reinforced using running locking 2-0 Prolene. The mesenteric defect was closed with running 2-0 Monocryl. Irrigation was carried out. The anastomosis was checked and was widely patent. There was no tension on the anastomosis. Nasogastric tube was repositioned in the stomach. Sponge, needle, instrument, and blade counts were verified as correct. The peritoneum and fascia were closed with running #1 Prolene. Subcutaneous tissue was closed with running 2-0 Monocryl. Skin was closed with keven. Tegaderm dressing was placed. The patient was awakened uneventfully, extubated and transferred to the Postanesthetic Care Unit in satisfactory condition. She did not have any intraoperative problems. LCS:joseline Job ID: [id number] Doc ID: [id number] Krystle Gerardo M.D.
--- NOTE | 2017-11-06 14:41 | General Surgery Progress Note ---
Subjective Patient reports: feels better, pain is less, tolerating liquids well, flatus, bowel movement, afebrile Narrative: Note initiated : 11/06/17 at 2:39 pm Service Date, if different from initiated Date: [] Patient: Kenya Diamond 87 y/o F admitted on 10/30/17 for GI Bleed. Chief Complaint: [Patient continues to do well. She states that she is weak but she does not have any chest pain or shortness of breath. She has not developed any peripheral edema. She is has tolerated liquid diet and is having multiple episodes of flatus and bowel movements. She denies nausea or vomiting. She remains afebrile. Pathology on the colon shows large tubular adenoma without malignancy.] Objective Temp Pulse Resp BP Pulse Ox 97.2 F 72 16 132/75 93 11/06/17 12:00 11/06/17 12:00 11/06/17 12:00 11/06/17 12:00 11/06/17 12:00 - Additional Data Intake & Output - Last 24 hours: Intake & Output 11/04/17 11/05/17 11/06/17 11/07/17 05:59 05:59 05:59 05:59 Intake Total 2566 / 2566 2659.1818 / 2659.1818 636 / 636 1003 / 1003 Output Total 1448 / 1448 2035 / 2035 1350 / 1350 Balance 1118 / 1509 358.8063 / 624.1818 -714 / -714 1003 / 1003 Weight 180 lb 183 lb 183 lb 8 oz 183 lb 8 oz - General physical appearance well developed, well nourished, no distress, no pain - Eyes PERRL - ENT no congestion - Neck no venous distension - Respiratory normal respiratory effort, clear to auscultation - Cardiovascular Cardiovascular exam: Present: normal rate and rhythm, RRR, +S1, +S2, tachycardia. Absent: JVD - Abdomen soft, non tender (Patient has good active bowel sounds. Her incision looks good.) - Integumentary no rash, no growths, no abnormal pigmentation - Neurologic normal coordination, normal sensation - Musculoskeletal other (Ambulates with front wheel walker) - Psychiatric oriented to time, oriented to person, oriented to place, speech is normal, memory intact - Labs 11/06/17 04:48 11/06/17 04:48 Diabetes panel 11/06/17 Range/Units 04:48 Sodium 143 (133-145) mmol/L Potassium 4.0 (3.3-5.1) mmol/L Chloride 106 (96-108) mmol/L Carbon Dioxide 25 (22-30) mmol/L BUN 8 (8-23) mg/dl Creatinine 0.8 (0.6-1.1) mg/dl Glucose 89 (70-105) mg/dL Calcium 8.7 (8.6-10.4) mg/dl AST 12 (0-37) U/l ALT 6 (0-40) U/l Alkaline Phosphatase 44 (39-117) U/L Total Protein 5.8 L (5.9-8.4) gm/dL Albumin 3.5 (3.2-5.2) gm/dL Triglycerides 71 (<150) mg/dl Calcium panel 11/06/17 Range/Units 04:48 Calcium 8.7 (8.6-10.4) mg/dl Phosphorus 2.9 (2.7-4.5) mg/dL Albumin 3.5 (3.2-5.2) gm/dL Pituitary panel 11/06/17 Range/Units 04:48 Sodium 143 (133-145) mmol/L Potassium 4.0 (3.3-5.1) mmol/L Chloride 106 (96-108) mmol/L Carbon Dioxide 25 (22-30) mmol/L BUN 8 (8-23) mg/dl Creatinine 0.8 (0.6-1.1) mg/dl Glucose 89 (70-105) mg/dL Calcium 8.7 (8.6-10.4) mg/dl Adrenal panel 11/06/17 Range/Units 04:48 Sodium 143 (133-145) mmol/L Potassium 4.0 (3.3-5.1) mmol/L Chloride 106 (96-108) mmol/L Carbon Dioxide 25 (22-30) mmol/L BUN 8 (8-23) mg/dl Creatinine 0.8 (0.6-1.1) mg/dl Glucose 89 (70-105) mg/dL Calcium 8.7 (8.6-10.4) mg/dl Total Bilirubin 0.7 (0.0-1.0) mg/dL AST 12 (0-37) U/l ALT 6 (0-40) U/l Alkaline Phosphatase 44 (39-117) U/L Total Protein 5.8 L (5.9-8.4) gm/dL Albumin 3.5 (3.2-5.2) gm/dL Assessment and Plan (1) Iron deficiency anemia Status: Acute Assessment and plan: Discontinue IV fluids Discontinue Lance catheter Case management for rehab or SNF short-term placement Current Visit: No (2) Acute diverticulitis Status: Chronic Assessment and plan: Continue IV antibiotics Current Visit: No (3) Degenerative disc disease Status: Chronic Assessment and plan: Continue home meds as needed for pain Current Visit: No - Time Spent With Patient Total time spent is greater than 50% in coordination of care (as documented) at patient's floor/unit and/or counseling patient:
[2017-11-06] MEDS ORDERED: METHOCARBAMOL 500 MG TABLET PO PRN (14:42)
[2017-11-06] MEDS ORDERED: oxyCODONE/APAP 5/325MG TABLET PO PRN (14:44)
[2017-11-07] MEDS: CLINDAMYCIN 600 MG in 0.9 % SODIUM CHLORIDE 50 ML IV SCH (05:06)
[2017-11-07] MEDS: METOCLOPRAMIDE 10 MG/2 ML VIAL IV SCH ×2 (05:06→12:07)
[2017-11-07] MEDS: 0.9 % SODIUM CHLORIDE 10 ML SYRINGE IV SCH (05:07)
[2017-11-07] MEDS: PANTOPRAZOLE 40 MG VIAL IV SCH (06:46)
[2017-11-07 07:29] LABS: ALT/SGPT 6 U/l (0-40); Albumin 3.5 gm/dL (3.2-5.2); Albumin/Globulin Ratio 1.4 (1.0-2.3); Alkaline Phosphatase 46 U/L (39-117); Bilirubin,Direct < 0.2 mg/dL (0.0-0.3); Blood Urea Nitrogen 7 mg/dl (8-23); Gamma Glutamyl Transpeptidase 11 U/L (5-36); Uric Acid 5.2 mg/dL (2.5-8.0)
[2017-11-07] MEDS ORDERED: LORATADINE 10 MG TABLET PO PRN (09:00)
[2017-11-07] MEDS: ERTAPENEM 1 GM in 0.9 % SODIUM CHLORIDE 50 ML IV SCH (09:10)
--- NOTE | 2017-11-07 09:21 | Discharge Summary ---
Providers - Providers Patient information: Note initiated : 11/07/17 at 9:19 am Service Date, if different from initiated Date: [] Patient: Kenya Diamond 87 y/o F admitted on 10/30/17 for GI Bleed. Chief Complaint: [] Date of admission: 10/30/17 Discharge date: 11/07/17 Attending physician: Krystle Gerardo Hospitalization Hospital course: 87-year-old female with history of chronic gastrointestinal bleeding requiring recurrent transfusion. Her labs for preop evaluation for colonoscopy revealed a hemoglobin of 6.2. The patient is very weak and pasty. She was seen in the office and was admitted for transfusion, inpatient bowel prep because of severe weakness and colonoscopy. She was transfused to a hemoglobin of 11. She underwent colonoscopy which showed extensive wid[place] diverticuli of the left colon with small mouth diverticula extending to the cecum. She had a wide flat based polypoid lesion of the cecum lateral to the appendix. Initial biopsies confirmed a tubular adenoma. The lesion was bleeding at the time that the colonoscopy was done. It could not be removed safely because of its extensive size as well as because of the tenderness of the cecum. It was felt that it would be better to remove the mass by right colectomy. A standard right colectomy was done and the patient tolerated well. She was advanced to a diet on the third postoperative day and is now on a soft diet. She is ambulating without difficulty with a frontwheel walker and standby assistance. She was felt to be stable for discharge and was transferred to a local nursing care facility for rehabilitative strengthening prior to being released to go back to her assisted care facility. During the hospitalization she was continued on antibiotics because of the chronic diverticulitis that she had. It is felt that she has had adequate antibiotics at this time and she does not need further antibiotics at discharge. Discharge diagnosis: Rectal bleeding Secondary discharge diagnosis: Tubular adenoma of cecum with bleeding Chronic diverticulitis Blood loss anemia Reason for admission: Rectal bleeding with hemoglobin of 6 Procedures: Colonoscopy with biopsies Right colectomy Complications: None Exam Temp Pulse Resp BP Pulse Ox 97.7 F 89 22 129/74 91 11/07/17 07:29 11/07/17 07:29 11/07/17 07:29 11/07/17 07:29 11/07/17 07:29 - General physical appearance well developed, well nourished, no distress - Eyes PERRL, normal ocular movement - ENT normal pinna, normal nares, normal mucosa, no hearing loss, no congestion - Head Head exam IM: Present: atraumatic, normal inspection, normocephalic - Neck no masses (Having fun), no bruits, trachea midline, no lymphadectomy, no venous distension - Cardiovascular Cardiovascular exam IM: Present: normal rate and rhythm (So discontinue Tylenol and no pelvis 667 Given Toradol 15 mg IV q. is also), +S1, +S2 ( always call he is also professional the same K path of the put him in is). Absent: JVD - Respiratory normal expansion, normal respiratory effort, clear to percussion, clear to auscultation - Abdomen Abdomen: Present: soft, tender (Mild incisional tenderness with good active bowel sounds; incision otherwise looks good), bowel sounds Hernia: Present: none - Genitourinary Present: normal external genitalia - Integumentary Present: no rash, no growths, no abnormal pigmentation - Neurologic Present: normal coordination, normal sensation - Musculoskeletal Present: normal gait, normal posture, other (Ambulating with front wheel walker with standby assistance) - Psychiatric Present: oriented to time, oriented to person, oriented to place, speech is normal, memory intact Discharge Plan - Patient/Caregiver Discharge Instructions Activity: ambulate only with your walker, as per physical therapy, increase activity as tolerated, resume usual activities as tolerated Diet: Regular Diet Additional Instructions: Physical Therapy and Occupational Therapy for physical rehabilitation as tolerated. May have Tylenol 500 mg 2 tabs 4 times daily as needed for pain. Keep dressing in place until seen in the physician's office. May shower. Do not use soaps, creams, or lotions over dressing. Do not scrub. Pat dry. No heavy lifting. No soaking in tub/pool until released by physician. Prescriptions: Acetaminophen [Acetaminophen Extra Strength] 1,000 mg PO QIDP PRN #30 tab PRN Reason: Pain Methocarbamol [Robaxin] 750 mg PO Q6HP PRN #60 tab PRN Reason: Muscle Spasm traMADol [Ultram] 50 mg PO Q6HP PRN #30 tab PRN Reason: Pain Other Amb Orders: OT Discharge Order Location: Determined By Patient Physical Therapy at Discharge - General Location: Determined By Patient - Follow up Plan Follow up with: Krystle Gerardo MD [Physician] - 11/19/17 9:30 am Disposition: Xfer Other Prognosis: Good Rehab Potential: Good I certify that the patient requires SNF services.: Yes Overall status at discharge: patient is progressing back to baseline Pending Studies Resuscitation Status Do Not Resuscitate Diet GI Soft/Transitional Start SunNov 07 853 Clindamycin Phosphate 600 mg/ (Sodium Chloride) 54 mls @ 100 mls/hr IV Q8H [facility]ILIP Last Infusion: 11/07/17 05:39 Dose: 0 mls/hr Admin: 11/07/17 05:06 Dose: 100 mls/hr Infusion: 11/06/17 22:28 Dose: 100 mls/hr Admin: 11/06/17 21:55 Dose: 100 mls/hr Infusion: 11/06/17 15:12 Dose: 0 mls/hr Admin: 11/06/17 14:39 Dose: 100 mls/hr Infusion: 11/06/17 05:57 Dose: 0 mls/hr Admin: 11/06/17 05:24 Dose: 100 mls/hr Infusion: 11/05/17 22:33 Dose: 100 mls/hr Admin: 11/05/17 22:00 Dose: 100 mls/hr Infusion: 11/05/17 14:39 Dose: 100 mls/hr Admin: 11/05/17 14:06 Dose: 100 mls/hr Infusion: 11/05/17 06:05 Dose: 100 mls/hr Admin: 11/05/17 05:32 Dose: 100 mls/hr Infusion: 11/04/17 22:13 Dose: 0 mls/hr Admin: 11/04/17 21:40 Dose: 100 mls/hr Ertapenem 1 gm/ Sodium (Chloride) 50 mls @ 100 mls/hr IV Q24H [facility] Last Infusion: 11/06/17 10:31 Dose: 0 mls/hr Admin: 11/06/17 10:01 Dose: 100 mls/hr Infusion: 11/05/17 10:06 Dose: 100 mls/hr Admin: 11/05/17 09:36 Dose: 100 mls/hr Acetaminophen (Ofirmev) 1,000 mg in 100 mls @ 200 mls/hr IV Q6HP PRN PRN Reason: Pain Last Admin: 11/06/17 21:08 Dose: 200 mls/hr Infusion: 11/06/17 13:06 Dose: 0 mls/hr Admin: 11/06/17 12:36 Dose: 200 mls/hr Infusion: 11/05/17 21:34 Dose: 0 mls/hr Admin: 11/05/17 21:04 Dose: 200 mls/hr Infusion: 11/05/17 09:00 Dose: 0 mls/hr Admin: 11/05/17 08:25 Dose: 200 mls/hr Metoclopramide HCl (Reglan) 10 mg IV Q6 [facility] Last Admin: 11/07/17 05:06 Dose: 10 mg Admin: 11/06/17 23:17 Dose: 10 mg Admin: 11/06/17 17:45 Dose: 10 mg Admin: 11/06/17 12:36 Dose: 10 mg Admin: 11/06/17 05:24 Dose: 10 mg Admin: 11/06/17 00:11 Dose: 10 mg Admin: 11/05/17 17:23 Dose: 10 mg Admin: 11/05/17 13:32 Dose: 10 mg Admin: 11/05/17 05:32 Dose: 10 mg Admin: 11/04/17 23:34 Dose: 10 mg Admin: 11/04/17 17:47 Dose: 10 mg Oxymetazoline HCl (Afrin) 1 spray MAJOR BIDP PRN PRN Reason: Nasal Congestion Last Admin: 11/05/17 09:37 Dose: 1 spray Admin: 11/04/17 19:09 Dose: 1 spray Pantoprazole Sodium (Protonix) 40 mg IV BIDAC [facility] Last Admin: 11/07/17 06:46 Dose: 40 mg Admin: 11/06/17 17:45 Dose: 40 mg Admin: 11/06/17 07:56 Dose: 40 mg Admin: 11/05/17 17:23 Dose: 40 mg Admin: 11/05/17 07:12 Dose: 40 mg Admin: 11/04/17 16:38 Dose: 40 mg Sodium Chloride (Saline Flush) 10 ml IV Q8 [facility] Last Admin: 11/07/17 05:07 Dose: 10 ml Admin: 11/06/17 23:17 Dose: 10 ml Admin: 11/06/17 21:56 Dose: 10 ml Admin: 11/06/17 14:40 Dose: Not Given Admin: 11/06/17 05:24 Dose: 10 ml Admin: 11/05/17 22:01 Dose: 10 ml Admin: 11/05/17 14:06 Dose: 10 ml Admin: 11/05/17 05:32 Dose: 10 ml Admin: 11/04/17 21:43 Dose: 10 ml Shift Summary 11/07/17 05:34 Shift Summary by Dave Frederick Pt has rested fairly well tonight. RT leg/knee pain well controlled w/ HS dose IV OFIRMEV. She is up AMB to & from B.R. w/ CGA-min asst using FWW - gait mostly stable. She is voiding - PVR scan x3 @ 0ml. Patient has had sm loose Bm w/ each void, as well as being incont of sm amt stool x1. Pt is wearing her own "Pull-up" attends per her request. CVL RT neck 4 ports flushed & patent - scheduled IV ATB & Reglan. Midline ABD incision well approx w/ keven in place - no drainage - covered w/ Tegaderm. VS - WNL on R.A.. She is calm, pleasant, & cooperative. Initialized on 11/07/17 05:34 - END OF NOTE
[2017-11-07] MEDS ORDERED: PSEUDOEPHEDRINE 30 MG TABLET PO PRN (09:48)
== END 2017-11-07 13:10 | disposition other institution (70) | DRG 330 ==
LOC: MEDSUR → OBSVTOIN 12:01 → ICU 11-02 15:40 → MEDSUR 11-04 15:22
PROVIDERS: ADMIT Family Medicine Adult Medicine; ATTEND Family Medicine Adult Medicine
PROC: COLONBX (2017-11-01 08:00)

== ENCOUNTER 2018-08-14 12:29 | Inpatient (IN) ==
[2018-08-14] MEDS ORDERED: IOPAMIDOL 100 ML BOTTLE IV ONE (12:30)
[2018-08-14] MEDS ORDERED: ONDANSETRON 4 MG/2 ML VIAL IV ONE (13:11)
[2018-08-14] MEDS ORDERED: KETOROLAC 30 MG/ML VIAL IV ONE (13:11)
[2018-08-14] MEDS ORDERED: 0.9 % SODIUM CHLORIDE 1,000 ML IV ONE (13:11)
[2018-08-14] MEDS ORDERED: HYDROmorphone 2 MG/ML VIAL IV PRN (13:11)
[2018-08-14 14:11] LABS: Basophils # (Auto) 0.1 K/mcL (0.0-0.3); Basophils % (Auto) 1.1 % (0.0-2.0); Eosinophils # (Auto) 0.1 K/mcL (0.0-0.7); Eosinophils % (Auto) 0.8 % (0.0-7.0); Granulocytes % (Auto) 79.9 % (38.0-78.0); Lymphocytes # (Auto) 1.5 K/mcL (1.5-4.8); Lymphocytes % (Auto) 10.2 % (15.5-49.0); Mean Cell Volume 74.6 fL (80.0-100.0); Mean Corpuscular HGB Conc 32.3 g/dL (31.0-36.0); Mean Corpuscular Hemoglobin 24.1 pg (26.0-34.0); Monocytes # (Auto) 1.1 K/mcL (0.1-0.9); Platelet Count 486 K/mcL (140-440); RBC 3.76 M/mcL (4.00-5.20); Red Cell Distribution Width 32.6 % (11.5-14.5)
[2018-08-14 14:33] LABS: ALT/SGPT 9 U/l (0-40); Albumin 3.2 gm/dL (3.2-5.2); Albumin/Globulin Ratio 0.9 (1.0-2.3); Alkaline Phosphatase 70 U/L (39-117); Amylase 29 U/L (28-100); Blood Urea Nitrogen 21 mg/dl (8-23); Lipase 14 U/L (7-60)
[2018-08-14] MEDS ORDERED: 0.9 % SODIUM CHLORIDE 1,000 ML IV SCH (15:15)
--- NOTE | 2018-08-14 15:16 | Emergency Department Note ---
Abdominal Pain HPI - General Chief Complaint: Abdominal Pain Stated Complaint: Stomach Pain Time Seen by Provider: 08/14/18 12:57 Source: patient Mode of arrival: wheelchair Limitations: no limitations - History of Present Illness HPI Narrative: 88-year-old female with a 2-week history of lower belly pain. She has had diverticulitis before and this is similar. She is having some diarrhea and bloating as well. She saw her primary care physician, Dr. Underwood who placed her on Levaquin and Flagyl for the last 48 hours or so. She denies melena but she is having a little bit of hematochezia. The hematochezia is actually chronic and has been worked up by Dr. Logan. She had endoscopies by Dr. Logan about 6 weeks ago which showed diverticulosis. She is nauseous - Related Data Home Medications Medication Instructions Recorded Confirmed Levofloxacin [Levaquin] 500 mg PO DAILY 08/14/18 08/14/18 metroNIDAZOLE [Metronidazole] 500 mg PO TID 08/14/18 08/14/18 Previous Rx's Medication Instructions Recorded traMADol [Ultram] 50 mg PO Q6HP PRN #30 tab 11/07/17 Allergies Allergy/AdvReac Type Severity Reaction Status Date / Time No Known Drug Allergies Allergy Verified 07/09/18 15:40 Review of Systems All systems ED: reviewed and negative except as stated. Abdominal Pain PMH - Past Medical History Attestation: Yes: The following information was validated with the patient. PMF Narrative: Past Surgical History (Last Reviewed 08/14/18 @ 20:00 by Dave Frederick) History of colectomy (Acute) History of colonoscopy (Acute) History of hysterectomy (Acute) History of tonsillectomy and adenoidectomy (Acute) No pertinent past surgical history (Inactive) Medical History (Last Reviewed 08/14/18 @ 20:00 by Dave Frederick) Abdominal pain (Chronic) Acute diverticulitis (Chronic) Spinal stenosis (Chronic) Difficulty walking (Chronic) Bilateral hip pain (Chronic) Knee pain (Chronic) Low back pain (Chronic) Excessive bleeding (Chronic) Back pain (Chronic) Left hip pain (Chronic) Degenerative disc disease (Chronic) Anemia (Chronic) History of transfusion (Chronic) Hemorrhoids (Chronic) Family History (Last Reviewed 08/14/18 @ 20:00 by Dave Frederick) Father Cancer Other Diabetes Medical history: Reports: arthritis (Knee pain), GI bleed, other (Diverticulosis , hemorrhoids, iron deficiency anemia) Surgical history ED: Reports: colectomy, hysterectomy, tonsillectomy Psychiatric history: Reports: no psych history 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 Normocephalic atraumatic. Conjunctive bilaterally mildly injected sclerae white and nonicteric. No nasal discharge or congestion. Oropharynx is pink and moist. She is edentulous but is wearing her bottom dentures. Neck is supple without lymphadenopathy thyromegaly. Heart is regular rate and rhythm no murmur appreciated. Lungs are clear to auscultation bilaterally without wheezes rales rhonchi or respiratory distress. Abdomen is soft but tender in the lower quadrants. No peritoneal signs or guarding. Hyperactive bowel sounds. No pedal edema. +2 radial pulse Limitations: no limitations Course Vital Signs Temperature 97.9 F 08/14/18 12:29 Pulse Rate 101 H 08/14/18 12:29 Respiratory Rate 18 08/14/18 12:29 Blood Pressure 138/75 08/14/18 12:29 Pulse Oximetry (%) 94 08/14/18 12:29 Temperature 99.5 F H 08/15/18 03:40 Pulse Rate 97 H 08/15/18 03:40 Respiratory Rate 20 08/15/18 03:40 Blood Pressure 120/59 08/15/18 03:40 Pulse Oximetry (%) 94 08/15/18 03:40 Abdominal Pain - Lab Data Lab results reviewed: Yes I reviewed the patient's lab results. Result diagrams: 08/15/18 04:58 08/15/18 04:58 Lab Results 08/14/18 08/14/18 08/14/18 Range/Units 13:20 13:29 13:29 WBC 14.2 H (4.5-11.0) K/mcL RBC 3.76 L (4.00-5.20) M/mcL Hgb 9.1 L (12.0-15.0) g/dL Hct 28.0 L (36.0-48.0) % MCV 74.6 L (80.0-100.0) fL MCH 24.1 L (26.0-34.0) pg MCHC 32.3 (31.0-36.0) g/dL RDW 32.6 H (11.5-14.5) % Plt Count 486 H (140-440) K/mcL MPV 8.2 (7.4-10.4) fL Gran % 79.9 H (38.0-78.0) % Lymph % (Auto) 10.2 L (15.5-49.0) % Creek % (Auto) 8.0 (1.0-12.0) % Eos % (Auto) 0.8 (0.0-7.0) % Baso % (Auto) 1.1 (0.0-2.0) % Gran # 11.3 H (1.8-8.0) K/mcL Lymph # (Auto) 1.5 (1.5-4.8) K/mcL Creek # (Auto) 1.1 H (0.1-0.9) K/mcL Eos # (Auto) 0.1 (0.0-0.7) K/mcL Baso # (Auto) 0.1 (0.0-0.3) K/mcL VBG Lactic Acid 0.8 (0.5-2.0) mmol/L Sodium 126 L (133-145) mmol/L Potassium 4.0 (3.3-5.1) mmol/L Chloride 90 L (96-108) mmol/L Carbon Dioxide 27 (22-30) mmol/L Anion Gap 9.0 (8-16) BUN 21 (8-23) mg/dl Creatinine 0.7 (0.6-1.1) mg/dl GFR Calculation 77 Glucose 113 H (70-105) mg/dL Calcium 9.3 (8.6-10.4) mg/dl Total Bilirubin 0.3 (0.0-1.0) mg/dL AST 13 (0-37) U/l ALT 9 (0-40) U/l Alkaline Phosphatase 70 (39-117) U/L Total Protein 6.7 (5.9-8.4) gm/dL Albumin 3.2 (3.2-5.2) gm/dL Globulin 3.5 (2.2-3.7) gm/dL Albumin/Globulin Ratio 0.9 L (1.0-2.3) Amylase 29 (28-100) U/L Lipase 14 (7-60) U/L Urinalysis was normal specific gravity 1.005 - Radiology Data Radiology results reviewed: Yes I reviewed the patient's radiology results. CT scan the abdomen pelvis shows diverticulitis versus colitis. Calcified gallstones. New nonobstructing ventral hernia seen Disposition Pt seen by MARKETING ACCOUNT MANAGER/PA only: No Clinical Impression: Hyponatremia, Ventral hernia without obstruction or gangrene, C. difficile colitis Summary: Patient was given Toradol Zofran and normal saline while workup with CT scan laboratory. CT scan and laboratory most consistent with diverticulitis which she suspected she had and was already taking medicines for from her PCP. However right before he was going to discharge her, her stool sample came back C. difficile positive. In light of her overall frailty comorbidities I discussed the case with Dr. Harris hospitalist. He agreed to accept the patient for further care and evaluation here in the hospital Disposition: Xfer As Inpt ([facility]) Condition: Fair
--- NOTE | 2018-08-14 16:34 | Cat Scan Report ---
CLINICAL INFORMATION: Left lower quadrant pain COMPARISON: 10/18/17, 09/04/17 TECHNIQUE: Following oral contrast and the injection of intravenous contrast the patient was scanned during the portal venous phase from the diaphragm through the symphysis pubis. Sagittal and coronal reformats were created.. The radiation exposure was limited using dose reduction technology. FINDINGS: There are linear bands of scar tissue in both lung bases. Small hiatus hernia is present. The liver and spleen are normal in size and homogeneous. Gallbladder contains multiple stones layering posteriorly. The gallbladder is not contracted and the keene are not thickened or inflamed. The bile ducts are nondilated. There is no evidence of a mass or inflammation the pancreas. The adrenals are normal symmetric. A 9 mm cortical cyst is present posteriorly in the right kidney. The kidneys are otherwise normal. Oral contrast has passed through normal small intestine to the rectum without obstruction. There is a wide neck midline hernia near the level the umbilicus which contains loops of nonobstructed small bowel. The hernia measures 10 cm in width, 8 cm in AP dimension and 2 cm in depth. The hernia is a new finding since 10/18/17. The wall of the sigmoid colon is abnormally thickened and there are numerous diverticula in this region. The lumen is not narrowed and the barium was able to pass through this abnormal segment of colon to the rectum without obstruction. There is stranding of the surrounding fat. The thickening of the wall of the sigmoid colon has become worse since 10/18/17. There is upward retraction of the left side of the dome of the bladder due to scar tissue. The contour deformity of the bladder has become worse since the prior exam. No abscess or ascites are present. There is no free intra-abdominal air. Ectasia and atherosclerosis of the abdominal aorta and iliac arteries remain stable. Advanced degenerative changes are present throughout the lumbar spine. This also remain stable. IMPRESSION: Worsening diverticulosis /diverticulitis in the sigmoid colon New ventral hernia containing nonobstructed segments of small intestine Chronic stable cholelithiasis Interpreted and Authenticated by: Judson Montemayor 08/14/18
--- NOTE | 2018-08-14 18:08 | Internal Med History&Physical ---
Medical - H&P: HPI Patient information: Note initiated : 08/14/18 at 6:06 pm Service Date, if different from initiated Date: [] Patient: Kenya Diamond a 88 y/o F admitted on for Stomach Pain. Chief Complaint: [] History of present illness: Ms. Diamond is a 88 year old F with history of diverticulosis presents to the emergency room for evaluation of abdominal pain. As per the patient the pain in the abdomen has been going on for the last 1 month. Sharp in nature radiates to the back waxing and waning in intensity. The patient's pain has progressed over the last few days. She was seen by her primary care physician with suspected diverticulitis and started on antibiotics. Patient took antibiotics from Sunday night however the pain did not improve and therefore she came to the emergency room for further evaluation. The pain as mentioned above is in the hypogastric region, radiates to the back relieved with pain medications no aggravating factors, associated with nausea, some vomiting and diarrhea. Diarrhea has been going on for the last 5 days. The patient denies any blood in stools. The patient denies any fever, admits to have chronic headaches chronic joint pains. She denies any urinary complaints denies any chest pain cough or shortness of breath. In the emergency room the patient on presentation was afebrile temperature 97.9 heart rate 101, blood pressure 138/75 saturating 94% on room air. Labs showed leukocytosis WBC count of 14,000 hemoglobin 9.1 platelets 486. Sodium is low at 126, potassium 4.0 bicarbonate 27 creatinine 0.7 BUN 21 glucose 113. Lactic acid 0.8. C. difficile was checked is positive. CT scan of the abdomen and pelvis was done which shows worsening diverticulosis diverticulitis, ventral hernia and cholelithiasis. The patient is being admitted to the hospital for further management All systems: reviewed and no additional remarkable complaints except as stated ( As per HPI is negative) Medical - H&P: PMH Medical history: Medical History (Last Reviewed 11/19/17 @ 12:55 by Krystle Gerardo MD) Abdominal pain (Chronic) Acute diverticulitis (Chronic) Spinal stenosis (Chronic) Difficulty walking (Chronic) Bilateral hip pain (Chronic) Knee pain (Chronic) Low back pain (Chronic) Excessive bleeding (Chronic) Back pain (Chronic) Left hip pain (Chronic) Degenerative disc disease (Chronic) Anemia (Chronic) History of transfusion (Chronic) Hemorrhoids (Chronic) Surgical history: Past Surgical History (Last Reviewed 11/19/17 @ 12:55 by Krystle Gerardo MD) History of colectomy (Acute) History of colonoscopy (Acute) History of hysterectomy (Acute) History of tonsillectomy and adenoidectomy (Acute) No pertinent past surgical history (Inactive) Pertinent family history: Family History (Last Reviewed 11/19/17 @ 12:55 by Krystle Gerardo MD) Father Cancer Other Diabetes Medical - H&P: Meds Home Medications Medication Instructions Recorded Confirmed Type Loratadine/Pseudoephedrine 1 each PO BID PRN 09/05/17 06/30/18 History [Claritin-D 12 Hour Tablet] Acetaminophen [Acetaminophen Extra 1,000 mg PO QIDP PRN #30 tab 11/07/17 Rx Strength] traMADol [Ultram] 50 mg PO Q6HP PRN #30 tab 11/07/17 06/30/18 Rx Cefdinir 300 mg PO BID #20 cap 06/30/18 Rx Na Phos,M-B/Na Phos,Di-Ba [Fleets 1 dose AR DAILYP PRN #3 enema 07/09/18 Rx Adult] Allergies Allergy/AdvReac Type Severity Reaction Status Date / Time No Known Drug Allergies Allergy Verified 07/09/18 15:40 Medical - H&P: Exam - Constitutional Vitals: Temp Pulse Resp BP Pulse Ox 97.9 F 93 H 18 130/89 98 08/14/18 12:29 08/14/18 17:24 08/14/18 12:29 08/14/18 17:17 08/14/18 17:24 Exam: GENERAL: The patient is a well-developed, well-nourished in no apparent distress. Is alert and oriented x3. VITAL SIGNS: Reviewed and as noted elsewhere. HEENT: Head is normocephalic and atraumatic. Extraocular muscles are intact. Pupils are equal, round, and reactive to light. Nares appeared normal. Mouth appears any without lesions. Mucous membranes are moist. Dent[place]res NECK: Normal to inspection, Supple, No lymphadenopathy or thyromegaly. LUNGS: Air entry equal on both sides, no wheezing, crackles or rhonchi noted. No accessory muscles of respiration HEART: Regular rate and rhythm normal, S1 and S2 heard, no Gallop, S3 or Rub Noted, No Gross murmur heard. ABDOMEN: Soft, large pannus, patient has hypogastric tenderness right and left lower quadrant, no guarding no rigidity. Bowel sounds are present, no obvious organomegaly palpable no obvious masses EXTREMITIES: No cyanosis, clubbing, rash, lesions or edema. NEUROLOGIC: Cranial nerves II through XII are grossly intact. Motor and Sensory System Grossly Intact PSYCHIATRIC: Normal affect, Normal Mood. Appropriate Behavior. SKIN: No ulceration or wounds noted, No jaundice, No rash noted. Medical - H&P: Reslt - Labs CBC & Chem 7: 08/14/18 13:29 08/14/18 13:29 Labs: Short CBC 08/14/18 Range/Units 13:29 WBC 14.2 H (4.5-11.0) K/mcL Hgb 9.1 L (12.0-15.0) g/dL Hct 28.0 L (36.0-48.0) % Plt Count 486 H (140-440) K/mcL BMP 08/14/18 13:29 Sodium 126 L Potassium 4.0 Chloride 90 L Carbon Dioxide 27 BUN 21 Creatinine 0.7 Glucose 113 H Calcium 9.3 Liver Function 08/14/18 Range/Units 13:29 Total Bilirubin 0.3 (0.0-1.0) mg/dL AST 13 (0-37) U/l ALT 9 (0-40) U/l Alkaline Phosphatase 70 (39-117) U/L Albumin 3.2 (3.2-5.2) gm/dL Medical - H&P: A/P - Narrative A/P Narrative: A/P Acute diverticulitis Acute Cdiff colitis Acute hyponatremia Anemia, chr h/o GI bleed. Microcytic chronic pain Plan The patient has Cdiff positive and coliitis/ She has had recent colonoscopy which showed diverticulosis. At this time it is difficult with certain whether the patient has acute of the colitis as well as C. difficile colitis or the patient has just C. difficile colitis and the CT findings and presence of diverticulosis is given the picture of acute of the colitis. We will treat the patient with p.o. vancomycin, IV Rocephin and IV Flagyl. IV fluids for hyponatremia, patient has not eaten well for the last few days and also has a diarrhea so likely hypovolemic hyponatremia. Pain medications with Tylenol oxycodone and as needed Dilaudid as needed. Low residue diet Heparin for DVT prophylaxis Patient is DNR CODE STATUS Social History - Tobacco smoking status: Never smoker - Alcohol alcohol intake frequency: does not drink - Substance use substance use type: does not use
[2018-08-14] MEDS ORDERED: cefTRIAXone 1 GM in DEXTROSE 5% IN WATER 50 ML IV SCH (18:56)
[2018-08-14] MEDS ORDERED: NALOXONE HCL 0.4 MG/ML VIAL IV PRN (18:56)
[2018-08-14] MEDS ORDERED: ONDANSETRON 4 MG/2 ML VIAL IV PRN (18:56)
[2018-08-14] MEDS: 0.9 % SODIUM CHLORIDE 1,000 ML IV SCH (19:50)
[2018-08-14] MEDS: HYDROmorphone 2 MG/ML VIAL IV PRN (19:51)
[2018-08-14] MEDS: cefTRIAXone 1 GM VIAL IV SCH (21:28)
[2018-08-14] MEDS: HEPARIN 5,000 UNIT/ML VIAL SQ SCH (21:29)
[2018-08-14] MEDS: ACETAMINOPHEN 325 MG TABLET PO PRN (21:30)
[2018-08-14] MEDS: metroNIDAZOLE 500 MG/100 ML BAG IV SCH (21:30)
[2018-08-14] MEDS: 0.9 % SODIUM CHLORIDE 10 ML SYRINGE IV SCH (21:30)
[2018-08-14] MEDS: oxyCODONE HCL 5 MG TABLET PO PRN (21:31)
[2018-08-14] MEDS: VANCOMYCIN ORAL SOL 1,000 MG/10 ML BOTTLE PO SCH (21:38)
[2018-08-15] MEDS: oxyCODONE HCL 5 MG TABLET PO PRN ×6 (01:31→23:42)
[2018-08-15] MEDS: 0.9 % SODIUM CHLORIDE 10 ML SYRINGE IV SCH ×3 (04:36→21:54)
[2018-08-15] MEDS: metroNIDAZOLE 500 MG/100 ML BAG IV SCH ×3 (05:18→21:34)
[2018-08-15 06:11] LABS: Basophils # (Auto) 0 K/mcL (0.0-0.3); Basophils % (Auto) 0.3 % (0.0-2.0); Eosinophils # (Auto) 0.2 K/mcL (0.0-0.7); Eosinophils % (Auto) 1.7 % (0.0-7.0); Granulocytes % (Auto) 73.1 % (38.0-78.0); Lymphocytes # (Auto) 1.7 K/mcL (1.5-4.8); Lymphocytes % (Auto) 14.8 % (15.5-49.0); Mean Cell Volume 75.1 fL (80.0-100.0); Mean Corpuscular HGB Conc 31.6 g/dL (31.0-36.0); Mean Corpuscular Hemoglobin 23.7 pg (26.0-34.0); Monocytes # (Auto) 1.2 K/mcL (0.1-0.9); Monocytes % (Auto) 10.1 % (1.0-12.0); Platelet Count 446 K/mcL (140-440); RBC 3.58 M/mcL (4.00-5.20); Red Cell Distribution Width 32.5 % (11.5-14.5)
[2018-08-15 06:28] LABS: ALT/SGPT 8 U/l (0-40); Albumin 2.6 gm/dL (3.2-5.2); Albumin/Globulin Ratio 0.8 (1.0-2.3); Alkaline Phosphatase 64 U/L (39-117); Bilirubin,Direct < 0.2 mg/dL (0.0-0.3); Blood Urea Nitrogen 17 mg/dl (8-23); Gamma Glutamyl Transpeptidase 22 U/L (5-36); Uric Acid 2.9 mg/dL (2.5-8.0)
[2018-08-15] MEDS: ACETAMINOPHEN 325 MG TABLET PO PRN (06:29)
[2018-08-15] MEDS: HEPARIN 5,000 UNIT/ML VIAL SQ SCH ×2 (09:10→21:34)
[2018-08-15] MEDS: cefTRIAXone 1 GM VIAL IV SCH (09:10)
[2018-08-15] MEDS: VANCOMYCIN ORAL SOL 1,000 MG/10 ML BOTTLE PO SCH ×4 (09:10→21:32)
[2018-08-15] MEDS: 0.9 % SODIUM CHLORIDE 1,000 ML IV SCH ×3 (09:11→23:43)
--- NOTE | 2018-08-15 12:01 | Internal Med Progress Note ---
Medical - PN: Subj Patient information: Note initiated : 08/15/18 at 11:47 am Service Date, if different from initiated Date: [] Patient: Kenya Diamond a 88 y/o F admitted on 08/14/18 for Stomach Pain. Chief Complaint: [] Interval history: Ms. Diamond is a 88 year old F with history of diverticulosis presents to the emergency room for evaluation of abdominal pain. As per the patient the pain in the abdomen has been going on for the last 1 month. Sharp in nature radiates to the back waxing and waning in intensity. The patient's pain has progressed over the last few days. She was seen by her primary care physician with suspected diverticulitis and started on antibiotics. Patient took antibiotics from Sunday night however the pain did not improve and therefore she came to the emergency room for further evaluation. The pain as mentioned above is in the hypogastric region, radiates to the back relieved with pain medications no aggravating factors, associated with nausea, some vomiting and diarrhea. Diarrhea has been going on for the last 5 days. The patient denies any blood in stools. The patient denies any fever, admits to have chronic headaches chronic joint pains. She denies any urinary complaints denies any chest pain cough or shortness of breath. In the emergency room the patient on presentation was afebrile temperature 97.9 heart rate 101, blood pressure 138/75 saturating 94% on room air. Labs showed leukocytosis WBC count of 14,000 hemoglobin 9.1 platelets 486. Sodium is low at 126, potassium 4.0 bicarbonate 27 creatinine 0.7 BUN 21 glucose 113. Lactic acid 0.8. C. difficile was checked is positive. CT scan of the abdomen and pelvis was done which shows worsening diverticulosis diverticulitis, ventral hernia and cholelithiasis. The patient is being admitted to the hospital for further management 08/15 Patient seen and examined no acute overnight events. Abdominal pain still there but better, diarrhea improved. She was tired and wanted to sleep. Low-grade temperature present, WBC count trending down Pertinent ROS: Denies headache, dizziness Denies chest pain, palpitations Denies cough or shortness of breath Improving abdominal pain. - Constitutional Vitals: Vital Signs Temp Pulse Resp BP Pulse Ox 99.3 F H 94 H 18 125/61 95 08/15/18 07:22 08/15/18 07:22 08/15/18 07:22 08/15/18 07:22 08/15/18 07:22 Period Temp Pulse Resp BP Sys/Harrison Pulse Ox Last 24 Hr 97.6 F-99.5 F 73-101 18-20 115-150/58-106 92-100 Intake and Output 08/14/18 08/15/18 08/15/18 21:59 05:59 13:59 Intake Total 1050 / 1050 475 / 475 1100 / 1100 Output Total 51 / 51 828 / 828 Balance 999 / 999 -353 / -353 1100 / 1100 Weight 177 lb Intake & Output: Intake & Output 08/14/18 08/15/18 08/15/18 21:59 05:59 13:59 Intake Total 1050 / 1050 475 / 475 1100 / 1100 Output Total 51 / 51 828 / 828 Balance 999 / 999 -353 / -353 1100 / 1100 Weight 177 lb Intake: IV 1050 / 1050 100 / 100 1100 / 1100 Sodium Chloride 0.9% 1,000 ml @ 1050 / 1050 1000 / 1000 75 mls/hr IV .[id number] [facility] Rx#: [id number] Oral 375 / 375 Output: Void Amount 50 / 50 825 / 825 # of times incontinent of urine 3 / 3 Other: Meal Breakfast Percent of Meal Consumed 50% Feeding Ability Assist with Tray Set Up Urine Appearance Clear Clear Urine Color Straw Pale Urine Odor Normal Normal Stool Size Small Small Stool Color Brown Brown Brown Stool Consistency Soft Soft Soft Formed # Voids 1 # Bowel Movements 1 Exam: Constitutional; Afebrile, cooperative, alert, not in distress. Respiratory system: Air Entry equal on both sides, No crackles or wheezing, no rhonchi. CVS- Rate rhythm regular, S1,S2 heard, no gallop, no rub. 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 Medical - PN: Obj Da - Labs CBC & Chem 7: 08/15/18 04:58 08/15/18 04:58 Labs: Abnormal Lab Results 08/15/18 08/15/18 08/14/18 04:58 04:58 13:29 WBC 11.6 H RBC 3.58 L Hgb 8.5 L Hct 26.9 L MCV 75.1 L MCH 23.7 L RDW 32.5 H Plt Count 446 H Gran % Lymph % (Auto) 14.8 L Gran # 8.5 H [place] # (Auto) 1.2 H Sodium 130 L 126 L Chloride 95 L 90 L Glucose 113 H Albumin 2.6 L Albumin/Globulin Ratio 0.8 L 0.9 L 08/14/18 13:29 WBC 14.2 H RBC 3.76 L Hgb 9.1 L Hct 28.0 L MCV 74.6 L MCH 24.1 L RDW 32.6 H Plt Count 486 H Gran % 79.9 H Lymph % (Auto) 10.2 L Gran # 11.3 H [place] # (Auto) 1.1 H Sodium Chloride Glucose Albumin Albumin/Globulin Ratio Meds: Medications Acetaminophen (Tylenol) 650 mg PO Q6HP PRN PRN Reason: PAIN/FEVER > 101 Last Admin: 08/15/18 06:29 Dose: 650 mg Ceftriaxone Sodium (Rocephin) 1 gm IV Q24H [facility] Last Admin: 08/15/18 09:10 Dose: 1 gm Heparin Sodium (Porcine) (Heparin) 5,000 unit SQ Q12 [facility] Last Admin: 08/15/18 09:10 Dose: 5,000 unit Hydromorphone HCl (Dilaudid) 0.5 mg IV Q2HP PRN PRN Reason: PAIN LEVEL > 6 Last Admin: 08/14/18 19:51 Dose: 0.5 mg Sodium Chloride (Sodium Chloride 0.9%) 1,000 mls @ 75 mls/hr IV .[id number] [facility] Stop: 08/16/18 10:55 Last Admin: 08/15/18 09:11 Dose: 75 mls/hr Metronidazole (Flagyl) 500 mg in 100 mls @ 100 mls/hr IV Q8H [facility] Last Infusion: 08/15/18 08:35 Dose: Infused Naloxone HCl (Narcan) 0.1 mg IV Q2MIN PRN PRN Reason: Opiate Reversal Ondansetron HCl (Zofran) 4 mg IV Q6HP PRN PRN Reason: Nausea And Vomiting Last Admin: 08/15/18 09:10 Dose: 4 mg Oxycodone HCl (Roxicodone) 5 mg PO Q4HP PRN PRN Reason: PAIN LEVEL 3-6 Last Admin: 08/15/18 06:29 Dose: 5 mg Sodium Chloride (Saline Flush) 10 ml IV Q8 [facility] Last Admin: 08/15/18 04:36 Dose: Not Given Vancomycin HCl (Vancomycin Oral Roya) 250 mg PO QID [facility] Last Admin: 08/15/18 09:10 Dose: 250 mg Medical - PN: A/P - Time Spent With Patient Total time spent is greater than 50% in coordination of care (as documented) at patient's floor/unit and/or counseling patient: - Narrative A/P Narrative: A/P Acute diverticulitis Acute Cdiff colitis Acute hyponatremia Anemia, chr h/o GI bleed. Microcytic chronic pain Plan Continue treatment with Rocephin and Flagyl for W colitis Continue with p.o. vancomycin for C. difficile colitis Continue IV fluids for hyponatremia, sodium is 130 today. Continue home medications as appropriate Low residue diet Heparin for DVT prophylaxis Patient is DNR CODE STATUS Medical - PN: Qual - Stroke Symptom Onset Unknown: No - VTE Deep Vein Thrombosis/Pulmonary Embolism Present on Admission: No
[2018-08-15] MEDS: HYDROmorphone 2 MG/ML VIAL IV PRN (16:40)
[2018-08-16] MEDS: HYDROmorphone 2 MG/ML VIAL IV PRN (02:09)
[2018-08-16] MEDS: ACETAMINOPHEN 325 MG TABLET PO PRN ×2 (02:09→09:59)
[2018-08-16] MEDS: metroNIDAZOLE 500 MG/100 ML BAG IV SCH ×2 (05:06→14:02)
[2018-08-16] MEDS: 0.9 % SODIUM CHLORIDE 10 ML SYRINGE IV SCH ×2 (05:17→14:02)
[2018-08-16 06:29] LABS: Basophils # (Auto) 0 K/mcL (0.0-0.3); Basophils % (Auto) 0.3 % (0.0-2.0); Eosinophils # (Auto) 0.3 K/mcL (0.0-0.7); Eosinophils % (Auto) 2.9 % (0.0-7.0); Granulocytes % (Auto) 66.2 % (38.0-78.0); Lymphocytes % (Auto) 20.9 % (15.5-49.0); Mean Cell Volume 76.4 fL (80.0-100.0); Mean Corpuscular HGB Conc 31.7 g/dL (31.0-36.0); Mean Corpuscular Hemoglobin 24.2 pg (26.0-34.0); Monocytes # (Auto) 0.9 K/mcL (0.1-0.9); Monocytes % (Auto) 9.7 % (1.0-12.0); Platelet Count 453 K/mcL (140-440); RBC 3.59 M/mcL (4.00-5.20); Red Cell Distribution Width 32.5 % (11.5-14.5)
[2018-08-16 06:50] LABS: ALT/SGPT 10 U/l (0-40); Albumin 2.8 gm/dL (3.2-5.2); Albumin/Globulin Ratio 0.8 (1.0-2.3); Alkaline Phosphatase 61 U/L (39-117); Bilirubin,Direct < 0.2 mg/dL (0.0-0.3); Blood Urea Nitrogen 14 mg/dl (8-23); Gamma Glutamyl Transpeptidase 22 U/L (5-36); Uric Acid 3.5 mg/dL (2.5-8.0)
[2018-08-16] MEDS: oxyCODONE HCL 5 MG TABLET PO PRN ×2 (09:58→13:43)
[2018-08-16] MEDS: VANCOMYCIN ORAL SOL 1,000 MG/10 ML BOTTLE PO SCH ×2 (09:59→13:43)
[2018-08-16] MEDS: HEPARIN 5,000 UNIT/ML VIAL SQ SCH (09:59)
[2018-08-16] MEDS: cefTRIAXone 1 GM VIAL IV SCH (09:59)
--- NOTE | 2018-08-16 12:48 | Discharge Summary ---
Medical - DS: Prov Patient information: Note initiated : 08/16/18 at 12:43 pm Service Date, if different from initiated Date: [] Patient: Kenya Diamond 88 y/o F admitted on 08/14/18 for Stomach Pain. Chief Complaint: [] Date of admission: 08/14/18 18:38 Discharge date: 08/16/18 Primary care physician: Adeel Underwood Admitting clinician: Elen Harris Consults: 08/14/18 Consult to Physician [CONS] Stat Comment: Consulting Provider: Elen Harris Reason For Exam: Physician to Consult Consult to Physician [CONS] Stat Comment: Consulting Provider: Krystle Gerardo Reason For Exam: Physician to Consult Discharging clinician: Elen Harris Medical - DS: Meds - Discharge Medications Prescriptions: Cefdinir 300 mg PO BID #10 cap metroNIDAZOLE [Metronidazole] 500 mg PO TID #15 tab Vancomycin HCl 250 mg PO Q6 #76 cap Active and Home Medications: Home Medications traMADol [Ultram] 50 mg PO Q6HP PRN #30 tab 11/07/17 [Rx Confirmed 08/14/18 Last Taken 08/14/18 12:00] Levofloxacin [Levaquin] 500 mg PO DAILY 08/14/18 [History Confirmed 08/14/18 Last Taken 08/14/18 08:00] metroNIDAZOLE [Metronidazole] 500 mg PO TID 08/14/18 [History Confirmed Last Taken 08/14/18 08:00] Medical - DS: Hosp Hospital course: Ms. Diamond is a 88 year old F with history of diverticulosis presents to the emergency room for evaluation of abdominal pain. As per the patient the pain in the abdomen has been going on for the last 1 month. Sharp in nature radiates to the back waxing and waning in intensity. The patient's pain has progressed over the last few days. She was seen by her primary care physician with suspected diverticulitis and started on antibiotics. Patient took antibiotics from Sunday night however the pain did not improve and therefore she came to the emergency room for further evaluation. The pain as mentioned above is in the hypogastric region, radiates to the back relieved with pain medications no aggravating factors, associated with nausea, some vomiting and diarrhea. Diarrhea has been going on for the last 5 days. The patient denies any blood in stools. The patient denies any fever, admits to have chronic headaches chronic joint pains. She denies any urinary complaints denies any chest pain cough or shortness of breath. In the emergency room the patient on presentation was afebrile temperature 97.9 heart rate 101, blood pressure 138/75 saturating 94% on room air. Labs showed leukocytosis WBC count of 14,000 hemoglobin 9.1 platelets 486. Sodium is low at 126, potassium 4.0 bicarbonate 27 creatinine 0.7 BUN 21 glucose 113. Lactic acid 0.8. C. difficile was checked is positive. CT scan of the abdomen and pelvis was done which shows worsening diverticulosis diverticulitis, ventral hernia and cholelithiasis. The patient is being admitted to the hospital for further management 08/15 Patient seen and examined no acute overnight events. Abdominal pain still there but better, diarrhea improved. She was tired and wanted to sleep. Low-grade temperature present, WBC count trending down 08/16 Patient seen examined, no diarrhea, tolerating po diet well, pain in abdomen much better her main concen now is pain in the knee, which she attributes to using the walker in this hospital, her own walker has wheels and she would prefer to use that The patient is stable for discharge and would be going back to her facility It was recommended by us and it seems her PCP that she go to the assisted living side, but she does not wish to make the move at this time. She also declined home health/ therapy options. In Brief A/P Acute diverticulitis/ Cdiff colitis- It is difficult to say this is just Cdiff colitis or diverticulitis with Cdiff colonization. At this time, I will treat both, PO cefdinir 300mg bid and metronidazole for 5 more days. She will be on oral vancomycin 250mg for 2 weeks after the last dose of her cefdinir. Discharge diagnosis: Colitis, Cdiff - Time Spent with Patient Total time spent providing and/or coordinating discharge services: Greater than 30 minutes Medical - DS: Exam - Constitutional Vitals: Vital Signs Temp Pulse Resp BP BP Pulse Ox 08/16/18 12:00 97.6 F 16 107/84 95 08/16/18 07:43 97.8 F 14 114/67 94 08/16/18 02:55 98.9 F 78 12 110/60 94 08/15/18 23:46 99.0 F 08/15/18 23:26 99.6 F H 99 H 20 144/74 94 08/15/18 19:50 99.9 F H 91 H 20 130/62 93 08/15/18 16:24 98.7 F 08/15/18 16:00 97.8 F 74 18 131/82 94 Intake and Output 08/15/18 08/16/18 08/16/18 21:59 05:59 13:59 Intake Total 740 / 740 1687 / 1687 100 / 100 Output Total 503 / 503 753 / 753 600 / 600 Balance 237 / 237 934 / 934 -500 / -500 Intake: IV 100 / 100 1100 / 1100 100 / 100 Sodium Chloride 0.9% 1,000 ml @ 1000 / 1000 75 mls/hr IV .[id number] [facility] Rx#: [id number] Oral 640 / 640 587 / 587 Output: Void Amount 500 / 500 750 / 750 600 / 600 # of times incontinent of urine 3 / 3 3 / 3 Other: Percent of Meal Consumed 2% milk Urine Appearance Clear Clear Urine Color Pale Bright Yellow Urine Odor Normal Strong Stool Size Small Stool Color Brown Stool Consistency Soft Formed # Voids 2 Weight 181 lb 8 oz 181 lb 8 oz Patient Weight 08/17/18 05:59 Weight 181 lb 8 oz Additional comments: Constitutional; Afebrile, cooperative, alert, not in distress. Respiratory system: Air Entry equal on both sides, No crackles or wheezing, no rhonchi. CVS- Rate rhythm regular, S1,S2 heard, no gallop, no rub. Abdomen- Soft, tenderness much improved, no organomegaly, no tenderness, no guarding or rigidity, DRUPAL PROGRAMMER- AOOx3, moving all extremities, no gross focal deficit noted. Medical - DS: Data Labs on day of discharge: Labs from last 24 hours 08/16/18 08/16/18 05:15 05:15 WBC 9.5 RBC 3.59 L Hgb 8.7 L Hct 27.4 L MCV 76.4 L MCH 24.2 L MCHC 31.7 RDW 32.5 H Plt Count 453 H MPV 8.1 Gran % 66.2 Lymph % (Auto) 20.9 [place] % (Auto) 9.7 Eos % (Auto) 2.9 Baso % (Auto) 0.3 Gran # 6.3 Lymph # (Auto) 2.0 [place] # (Auto) 0.9 Eos # (Auto) 0.3 Baso # (Auto) 0 Sodium 136 Potassium 4.5 Chloride 100 Carbon Dioxide 26 Anion Gap 10.0 BUN 14 Creatinine 0.8 GFR Calculation 65 Glucose 88 Uric Acid 3.5 Calcium 9.1 Phosphorus 3.4 Magnesium 1.9 Total Bilirubin 0.2 Direct Bilirubin < 0.2 GGT 22 AST 15 ALT 10 Alkaline Phosphatase 61 Lactate Dehydrogenase 144 Total Protein 6.1 Albumin 2.8 L Globulin 3.3 Albumin/Globulin Ratio 0.8 L Triglycerides 59 Medical - DS: A/P - Patient/Caregiver Discharge Instructions Activity: increase activity as tolerated Diet: Low Fiber Additional Instructions: Follow up with PCP in 1-2 weeks Please take cefdinir and metronidazole for 5 more days Take oral vancomycin 250mg qid for total of 19 days Go to the ER if worsening abdominal pain, shortness in breath fever or any other acute concern. - Follow up Plan Follow up with: Adeel Underwood MD [Primary Care Provider] - (Please call Sunday and schedule a hospital follow up appointment.) Disposition: Home, Self-Care Prognosis: Fair Rehab Potential: Fair I certify that the patient requires SNF services: No Medical - DS: Qual - VTE Deep Vein Thrombosis/Pulmonary Embolism Present on Admission: No
== END 2018-08-16 14:10 | disposition home or self-care (01) | DRG 372 ==
LOC: ED 12:29 → MEDSUR 18:38
PROVIDERS: ADMIT Internal Medicine; ATTEND Internal Medicine
CPT/HCPCS: 87324; 87449; 90686; 97161; 97167; 99231; J0696; J1170; J1644; J1885; J2405; J7030; Q9967

== ENCOUNTER 2019-02-28 14:43 | Inpatient (IN) ==
[2019-02-28 16:17] LABS: Basophils # (Auto) 0 K/mcL (0.0-0.3); Basophils % (Auto) 0.1 % (0.0-2.0); Eosinophils # (Auto) 0.1 K/mcL (0.0-0.7); Eosinophils % (Auto) 0.9 % (0.0-7.0); Granulocytes % (Auto) 85.6 % (38.0-78.0); Hematocrit 34.6 % (36.0-48.0); Hemoglobin 10.8 g/dL (12.0-15.0); Lymphocytes # (Auto) 0.9 K/mcL (1.5-4.8); Lymphocytes % (Auto) 7.4 % (15.5-49.0); Mean Cell Volume 66.3 fL (80.0-100.0); Mean Corpuscular HGB Conc 31.1 g/dL (31.0-36.0); Mean Platelet Volume 7.9 fL (7.4-10.4); Monocytes # (Auto) 0.8 K/mcL (0.1-0.9); Platelet Count 551 K/mcL (140-440); RBC 5.22 M/mcL (4.00-5.20); Red Cell Distribution Width 21.6 % (11.5-14.5); WBC 12.4 K/mcL (4.5-11.0)
[2019-02-28] MEDS ORDERED: KETOROLAC 60 MG/2 ML VIAL IM ONE (16:35)
[2019-02-28] MEDS ORDERED: PROMETHAZINE 25 MG/ML VIAL IM ONE (16:35)
[2019-02-28 16:36] LABS: ALT/SGPT 12 U/l (0-40); AST/SGOT 17 U/l (0-37); Albumin 3.7 gm/dL (3.2-5.2); Albumin/Globulin Ratio 0.9 (1.0-2.3); Alkaline Phosphatase 97 U/L (39-117); Bilirubin,Total 0.7 mg/dL (0.0-1.0); Blood Urea Nitrogen 31 mg/dl (8-23); Calcium 10.2 mg/dl (8.6-10.4); Carbon Dioxide 33 mmol/L (22-30); Chloride 94 mmol/L (96-108); Glomerular Filtration Rate 65; Glucose 127 mg/dL (70-105); Potassium 4.9 mmol/L (3.3-5.1); Sodium 136 mmol/L (133-145)
--- NOTE | 2019-02-28 16:46 | Emergency Department Note ---
General Adult HPI - General Chief complaint: Abdominal Pain Stated complaint: abdominal pain Time Seen by Provider: 02/28/19 15:11 Source: patient Mode of arrival: wheelchair Limitations: no limitations - History of Present Illness HPI Narrative: 88-year-old female in ED from [facility]. One day ago patient was at pain clinic and received injection into her back. Was also provided gabapentin for the last week and has been titrating up. Patient did take gabapentin last night and became nauseous. Patient has had nausea since returning from the pain clinic. Does have decreased appetite and has not been sleeping well the last night. Patient is visibly uncomfortable in the room after she took an hour nap. Onset (ago): day(s) (1) Severity: mild Consistency: intermittent Associated symptoms: Reports: loss of appetite, nausea/vomiting. Denies: confusion, chest pain, cough, fever/chills, headaches, malaise, shortness of breath, weakness Treatments Prior to Arrival: none - Related Data Home Medications Medication Instructions Recorded Confirmed DULoxetine HCL [Cymbalta] 60 mg PO DAILY 02/28/19 02/28/19 Folic Acid/Multivit-Min/Lutein 1 each PO DAILY 02/28/19 02/28/19 [Adult Multivitamin Gummies] Furosemide [Lasix] 40 mg PO DAILY 02/28/19 02/28/19 Ondansetron [Zofran ODT] 4 mg SL QIDP PRN 02/28/19 02/28/19 Potassium Chloride [Kdur] 10 meq PO DAILY 02/28/19 02/28/19 traMADol [Ultram] 100 mg PO Q6HP PRN 02/28/19 02/28/19 Allergies Allergy/AdvReac Type Severity Reaction Status Date / Time No Known Drug Allergies Allergy Verified 11/11/18 15:06 Review of Systems All systems ED: reviewed and negative except as stated. Past Medical History - Past Medical History PMFSH Narrative: All Active Problems (Last Reviewed 08/14/18 @ 20:00 by Dave Frederick) Rectal bleeding (Acute) Bladder infection, acute (Acute) GI bleed (Acute) Constipation (Acute) Hyponatremia (Acute) Ventral hernia without obstruction or gangrene (Acute) C. difficile colitis (Acute) Weakness (Acute) Rectal prolapse (Acute) Complete rectal prolapse with no displacement of anal muscles (Acute) Angioedema (Acute) Altered mental status (Acute) History of rectal bleeding (Acute) Iron deficiency anemia (Chronic) Mass of cecum (Acute) Abdominal pain (Chronic) Acute diverticulitis (Chronic) Spinal stenosis (Chronic) Difficulty walking (Chronic) Bilateral hip pain (Chronic) Knee pain (Chronic) Low back pain (Chronic) Excessive bleeding (Chronic) Back pain (Chronic) Left hip pain (Chronic) Degenerative disc disease (Chronic) Anemia (Chronic) History of transfusion (Chronic) Hemorrhoids (Chronic) Diverticulitis (Chronic) Urinary tract infection (Chronic) Abdominal pain (Chronic) Past Surgical History (Last Reviewed 08/14/18 @ 20:00 by Dave Frederick) History of colectomy (Acute) History of colonoscopy (Acute) History of tonsillectomy and adenoidectomy (Acute) No pertinent past surgical history (Inactive) Family History (Last Reviewed 08/14/18 @ 20:00 by Dave Frederick) Father Cancer Other Diabetes Medical history: Reports: arthritis (Knee pain), GI bleed, other (Divertic ulosis, hemorrhoids, iron deficiency anemia, c diff) Psychiatric history: Reports: no psych history 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 After she woke she was in increased discomfort), sleepy Head: atraumatic, normocephalic, normal inspection Eye: Present: normal appearance, PERRL, EOMI. Absent: conjunctival injection ENT: normal oropharynx, mucous membranes moist, TM's normal bilaterally, normal external ear exam Neck: Present: normal inspection. Absent: tenderness, lymphadenopathy Chest: Present: normal inspection, symmetric chest wall rise. Absent: tenderness Respiratory: Present: normal lung sounds bilaterally. Absent: respiratory distress, rales/crackles, wheezes Cardiovascular: Present: tachycardia Abdominal: Present: soft, tenderness (lower right and left quadrant), normal bowel sounds. Absent: distention, guarding, rebound, rigidity Extremities: Present: normal inspection. Absent: pedal edema Back: Present: normal inspection, tenderness (low back). Absent: CVA tenderness (R), CVA tenderness (L) Neurological: Present: alert, oriented X3 Psychiatric: Present: normal affect, normal mood. Absent: depressed, agitated, anxious, flat affect Skin: Present: warm, dry, intact, normal color. Absent: cool, diaphoretic Course Vital Signs Temperature 98.5 F 02/28/19 14:43 Pulse Rate 103 H 02/28/19 14:43 Respiratory Rate 18 02/28/19 14:43 Blood Pressure 145/98 02/28/19 14:43 Pulse Oximetry (%) 93 02/28/19 14:43 Temperature 98.9 F 03/04/19 15:45 Pulse Rate 98 H 03/04/19 15:45 Respiratory Rate 18 03/04/19 15:45 Blood Pressure 132/88 03/04/19 15:45 Pulse Oximetry (%) 95 03/04/19 15:45 Medical Decision Making - MDM Narrative Medical decision making narrative: This provided 12.5 mg IM Phenergan and 60 mg IM Toradol. Consulted and advised he would accept patient for over night observation. - Lab Data Lab results reviewed: Yes I reviewed the patient's lab results. Result diagrams: 03/03/19 04:33 03/03/19 04:33 Lab Results 02/28/19 02/28/19 Range/Units 15:43 15:43 WBC 12.4 H (4.5-11.0) K/mcL RBC 5.22 H (4.00-5.20) M/mcL Hgb 10.8 L (12.0-15.0) g/dL Hct 34.6 L (36.0-48.0) % MCV 66.3 L (80.0-100.0) fL MCH 20.6 L (26.0-34.0) pg MCHC 31.1 (31.0-36.0) g/dL RDW 21.6 H (11.5-14.5) % Plt Count 551 H (140-440) K/mcL MPV 7.9 (7.4-10.4) fL Gran % 85.6 H (38.0-78.0) % Lymph % (Auto) 7.4 L (15.5-49.0) % [place] % (Auto) 6.0 (1.0-12.0) % Eos % (Auto) 0.9 (0.0-7.0) % Baso % (Auto) 0.1 (0.0-2.0) % Gran # 10.6 H (1.8-8.0) K/mcL Lymph # (Auto) 0.9 L (1.5-4.8) K/mcL [place] # (Auto) 0.8 (0.1-0.9) K/mcL Eos # (Auto) 0.1 (0.0-0.7) K/mcL Baso # (Auto) 0 (0.0-0.3) K/mcL Sodium 136 (133-145) mmol/L Potassium 4.9 (3.3-5.1) mmol/L Chloride 94 L (96-108) mmol/L Carbon Dioxide 33 H (22-30) mmol/L Anion Gap 9.0 (8-16) BUN 31 H (8-23) mg/dl Creatinine 0.8 (0.6-1.1) mg/dl GFR Calculation 65 Glucose 127 H (70-105) mg/dL Calcium 10.2 (8.6-10.4) mg/dl Total Bilirubin 0.7 (0.0-1.0) mg/dL AST 17 (0-37) U/l ALT 12 (0-40) U/l Alkaline Phosphatase 97 (39-117) U/L Total Protein 7.7 (5.9-8.4) gm/dL Albumin 3.7 (3.2-5.2) gm/dL Globulin 4.0 H (2.2-3.7) gm/dL Albumin/Globulin Ratio 0.9 L (1.0-2.3) - Radiology Data Radiology results reviewed: Yes I reviewed the patient's radiology results. Date of Service: 02/28/19 Procedure(s): XR abdomen 2V Accession Number(s): [id number] CLINICAL INFORMATION: low abd pain with nausea COMPARISON: 07/09/2018 FINDINGS: The stomach and multiple loops of upper small bowel are mildly dilated with air-fluid levels on the upright film. The distal small bowel and colon are relatively decompressed. No free air or soft tissue mass. Five six calcifications in the right upper quadrant likely represent gallstones. Severe right hip degeneration noted IMPRESSION: Partial mid jejunal obstruction. Severe right hip degeneration Probable cholelithiasis Interpreted and Authenticated by: Nuno Roche 02/28/19 Disposition Pt seen by SCREEN PRINTING LOADER UNLOADER/PA only: No (David) Clinical Impression: Jejunal inflammation Disposition: Xfer As Inpt ([facility]) Condition: Good Time of Disposition: 01:13
[2019-02-28] MEDS ORDERED: METHOCARBAMOL 750 MG TABLET PO ONE (17:58)
--- NOTE | 2019-02-28 18:15 | XRay Report ---
CLINICAL INFORMATION: low abd pain with nausea COMPARISON: 07/09/2018 FINDINGS: The stomach and multiple loops of upper small bowel are mildly dilated with air-fluid levels on the upright film. The distal small bowel and colon are relatively decompressed. No free air or soft tissue mass. Five six calcifications in the right upper quadrant likely represent gallstones. Severe right hip degeneration noted IMPRESSION: Partial mid jejunal obstruction. Severe right hip degeneration Probable cholelithiasis Interpreted and Authenticated by: Nuno Roche 02/28/19
[2019-02-28] MEDS: 0.9 % SODIUM CHLORIDE 1,000 ML IV SCH (20:38)
[2019-02-28] MEDS: fentaNYL 100 MCG/2 ML VIAL IV PRN (22:09)
[2019-02-28] MEDS: ACETAMINOPHEN 1,000 MG/100 ML BOTTLE IV SCH (22:11)
[2019-03-01] MEDS: METHOCARBAMOL 750 MG TABLET PO PRN ×3 (00:12→20:42)
[2019-03-01] MEDS: fentaNYL 100 MCG/2 ML VIAL IV PRN ×5 (02:09→18:42)
[2019-03-01] MEDS: 0.9 % SODIUM CHLORIDE 1,000 ML IV SCH ×3 (02:11→16:43)
[2019-03-01] MEDS: ACETAMINOPHEN 1,000 MG/100 ML BOTTLE IV SCH ×4 (03:49→21:45)
[2019-03-01] MEDS: PROMETHAZINE 25 MG/ML VIAL IV PRN ×2 (05:38→21:11)
--- NOTE | 2019-03-01 09:58 | General Surg History&Physical ---
History of Present Illness Patient information: Note initiated : 03/01/19 at 9:53 am Service Date, if different from initiated Date: [] Patient: Kenya Diamond a 88 y/o F admitted on 02/28/19 for abdominal pain. HPI: Ms. Diamond is a 88 year old F admitted for evaluation of nausea and vomiting with possible partial small bowel obstruction. The patient states that she has had chronic intermittent pain for a long time. She also has severe back and joint pain. She was recently started on Neurontin and states that she had nausea and vomiting after taking her first dose of Neurontin. This continued. She has had some abdominal swelling and bloating. Her emesis is mostly bilious with old food particles. Normally she has a bowel movement once or twice a day. Her last bowel movement was 2 days ago. She cannot remember when she last passed flatus. Patient was seen in the emergency room and an abdominal x-ray was done and interpreted as showing partial jejunal obstruction. However, the actual x-ray shows dilated jejunum and ileum with gas in the bowel leading up to her ileal colonic anastomosis in the right upper quadrant. Actual . Position of the bowel is difficult to tell on a plain film however the patient does have gas in her transverse colon. She will need to get a CT of the abdomen with contrast to better evaluate her Bowel. 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, Chronic degenerative joint disease, history of tubulovillous adenoma of the cecum, incisional hernia, cholelithiasis, chronic anemia due to recurrent GI bleeding Review of Systems - Constitutional fatigue, malaise, weakness, weight gain - EENT Nose, mouth and throat: abnormal hearing, disequilibrium, dry mouth - Cardiovascular dyspnea on exertion, irregular heart rhythm, leg edema, palpatations, pedal edema, rapid heart rate, no chest pain at rest, no chest pain with activity - Respiratory dyspnea, dyspnea on exertion, no cough, no wheezing - Gastrointestinal abdominal pain, bloating, change in bowel habits, constipation, cramping, heartburn, hematochezia, nausea, vomiting - Genitourinary Genitourinary: urinary frequency, urinary incontinence, urinary urgency - Musculoskeletal abnormal gait, arthralgias, back pain, joint swelling, muscle weakness, myalgias, neck pain, stiffness - Integumentary no new lesions, no pruritus, no rash - Neurological abnormal gait, abnormal hearing, dizziness, paresthesias, restless legs, tremor(s), weakness - Psychiatric anxiety (9. I have seen) - Endocrine fatigue - Hematologic/Lymphatic no easy bleeding, no easy bruising, no lymphadenopathy - Allergic/Immunologic no tongue swelling, no throat swelling, no uticaria, no wheezing, no lip swelling Past History Past medical history: History diverticulitis. Chronic pain syndrome. Chronic anemia. Degenerative joint disease. History of tubulovillous adenoma of cecum. Incisional hernia. Cholelithiasis. History of C. difficile colitis. History of rectal prolapse. History of recurrent urinary tract infection. Chronic back pain Past surgical history: Right colectomy. 2018 Hysterectomy Past family history: History of intestinal cancer, type unknown. Diabetes mellitus Past social history: Denies tobacco use. Denies alcohol use. Denies drug use. resides in nursing care facility Medications and Allergies Home Medications Medication Instructions Recorded Confirmed Type DULoxetine HCL [Cymbalta] 60 mg PO DAILY 02/28/19 02/28/19 History Folic Acid/Multivit-Min/Lutein 1 each PO DAILY 02/28/19 02/28/19 History [Adult Multivitamin Gummies] Furosemide [Lasix] 40 mg PO DAILY 02/28/19 02/28/19 History Gabapentin [Neurontin] 100 mg PO BID 02/28/19 02/28/19 History Ondansetron [Zofran ODT] 4 mg SL QIDP PRN 02/28/19 02/28/19 History Potassium Chloride [Kdur] 10 meq PO DAILY 02/28/19 02/28/19 History traMADol [Ultram] 100 mg PO Q6HP PRN 02/28/19 02/28/19 History Allergies Allergy/AdvReac Type Severity Reaction Status Date / Time No Known Drug Allergies Allergy Verified 11/11/18 15:06 Exam Temp Pulse Resp BP Pulse Ox 97.8 F 76 20 129/69 97 03/01/19 07:19 03/01/19 04:00 03/01/19 07:19 03/01/19 07:19 03/01/19 07:19 - General physical appearance well developed, well nourished, moderate distress, severe pain, chronically ill, obese - Eyes PERRL, normal ocular movement - ENT normal pinna, normal nares, normal mucosa, no congestion, decreased hearing, other (edentulous) - Head Head exam IM: Present: atraumatic, normal inspection, normocephalic - Neck no masses, no bruits, trachea midline, no lymphadenopathy, no venous distension - Cardiovascular Cardiovascular exam IM: Present: normal rate and rhythm, RRR, +S1, +S2. Absent: systolic murmur - Respiratory normal expansion, normal respiratory effort, clear to auscultation - Abdomen Abdomen: Present: soft, tender (. Mild tenderness over incisional hernia, but hernia is soft and reducible), bowel sounds, distended ( moderate abdominal distention) Hernia: Present: none - Genitourinary Present: normal external genitalia - Integumentary Present: no rash, no growths, no abnormal pigmentation - Neurologic Present: normal coordination, normal sensation - Musculoskeletal Present: other (. Extremities poor gait even with maximal assistance; severe tenderness of soft tissue of both lower legs, more prominent on left than right) - Psychiatric Present: oriented to time, oriented to person, oriented to place, speech is normal, memory intact Assessment and Plan (1) Adynamic ileus Patient will have CT of abdomen with contrast to better evaluate the , the patency of her bowel. The present pattern suggests more of an adynamic ileus than obstruction. Her major problem appears to be joint and back pain. 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
--- NOTE | 2019-03-01 14:50 | Cat Scan Report ---
CLINICAL INFORMATION: Nausea and vomiting. History of colectomy and hysterectomy anterior abdominal wall hernias. Possible jejunal obstruction COMPARISON: Abdomen pelvic CT 08/14/2018. TECHNIQUE: Following enteric contrast, 80 cc of Isovue-300 were injected intravenously, and 60 seconds later, 0.625 mm helical slices were obtained from the mid heart through the subtrochanteric regions. Following reconstruction, 2.5 mm sagittal, coronal and axial reformatted images were processed and reviewed at bone, lung and soft tissue windows. Five minutes later, 0.625 mm helical slices were obtained from the mid heart through the kidneys and viewed at soft tissue windows.The exam was performed using radiation dose optimization techniques including, but not limited to, automated exposure control, adjustment of the mA and/or kV according to patient size and use of iterative reconstruction technique. FINDINGS: Lung bases show new stranding airspace disease compatible with atelectasis. There are no effusions. The heart is mildly enlarged with heavy mitral annular calcification. Images through the abdomen show multiple small cholesterol stones in the gallbladder as previously seen. The gallbladder and bile ducts are, otherwise, normal: CBD is 5 mm. The liver, both kidneys, adrenal glands, spleen, pancreas are normal in size, configuration and attenuation without focal lesion. The aorta contains heavy atherosclerotic plaque but is normal diameter. Images through the pelvis show urinary bladder to be normal. Hysterectomy/oophorectomy changes appreciated. An anterior abdominal wall hernia, near midline and is unchanged in size: 10 cm. It contains a short segment of jejunum that has previously seen. There is mild narrowing at the jejunal reentry point into the abdomen. The proximal small bowel is mildly dilated and the distal small bowel is relatively decompressed suggesting partial jejunal obstruction. Small amount of edema is seen in the surrounding Camper's fascia. A second left periumbilical hernia spans 3 cm and contains only mesenteric fat with a small amount of edema. There is a third infraumbilical hernia spanning 3.4 also containing only mesenteric fat. Right colon is surgically absent. The ileal/ transverse colon anastomosis is unremarkable. There is intraluminal calcification presumably undigested tablets within the transverse colon. Sigmoid diverticulosis noted, but no evidence of diverticulitis. There is no free air, free fluid or adenopathy. Bone windows again show severe right hip degeneration and also moderate degeneration lower lumbar spine. IMPRESSION: 1. 10 cm anterior abdominal wall hernia near midline containing a short segment of mid jejunum. This has resulted in partial small bowel obstruction. 2. Two smaller (3 cm) adjacent midline hernias only mesenteric fat. A small amount of edema is seen in the adjacent Camper fascia 3. 5 cm fluid collection in subcutaneous fat over the right sacral region. Likely a seroma new from prior CT 4. Right colectomy changes. The ileal/transverse colon anastomosis is unremarkable. 5. Cholelithiasis - stable 6. Small hiatal hernia - stable 7. Sigmoid diverticulosis but no evidence of diverticulitis 8. Severe degeneration. At L4-5 severe central canal and lateral recess stenosis due to marked facet hypertrophy and disc protrusion. Stable Interpreted and Authenticated by: Nuno Roche 03/01/19
[2019-03-01] MEDS ORDERED: diphenhydrAMINE 50 MG/ML VIAL IV ONE (21:31)
[2019-03-01] MEDS ORDERED: HYDROmorphone 2 MG/ML VIAL ONE (21:36)
[2019-03-01] MEDS ORDERED: diphenhydrAMINE 50 MG/ML VIAL ONE (21:36)
[2019-03-01] MEDS: HYDROmorphone 2 MG/ML VIAL IV PRN (21:40)
[2019-03-02] MEDS: METHOCARBAMOL 750 MG TABLET PO PRN ×3 (03:10→19:35)
[2019-03-02] MEDS: HYDROmorphone 2 MG/ML VIAL IV PRN ×2 (03:10→12:05)
[2019-03-02] MEDS: ACETAMINOPHEN 1,000 MG/100 ML BOTTLE IV SCH ×3 (04:26→15:49)
[2019-03-02 05:16] LABS: Basophils # (Auto) 0 K/mcL (0.0-0.3); Basophils % (Auto) 0.5 % (0.0-2.0); Eosinophils # (Auto) 0.3 K/mcL (0.0-0.7); Eosinophils % (Auto) 5.1 % (0.0-7.0); Granulocytes % (Auto) 52.4 % (38.0-78.0); Hematocrit 28.1 % (36.0-48.0); Hemoglobin 8.6 g/dL (12.0-15.0); Lymphocytes # (Auto) 1.7 K/mcL (1.5-4.8); Lymphocytes % (Auto) 29.6 % (15.5-49.0); Mean Corpuscular HGB Conc 30.6 g/dL (31.0-36.0); Mean Platelet Volume 8.2 fL (7.4-10.4); Monocytes # (Auto) 0.7 K/mcL (0.1-0.9); Monocytes % (Auto) 12.4 % (1.0-12.0); Platelet Count 483 K/mcL (140-440); Red Cell Distribution Width 21.8 % (11.5-14.5); WBC 5.6 K/mcL (4.5-11.0)
[2019-03-02 05:33] LABS: ALT/SGPT 9 U/l (0-40); AST/SGOT 17 U/l (0-37); Albumin 2.8 gm/dL (3.2-5.2); Albumin/Globulin Ratio 0.9 (1.0-2.3); Alkaline Phosphatase 68 U/L (39-117); Bilirubin,Direct < 0.2 mg/dL (0.0-0.3); Bilirubin,Total 0.3 mg/dL (0.0-1.0); Blood Urea Nitrogen 18 mg/dl (8-23); Calcium 8.5 mg/dl (8.6-10.4); Carbon Dioxide 24 mmol/L (22-30); Chloride 107 mmol/L (96-108); Globulin 3.2 gm/dL (2.2-3.7); Glomerular Filtration Rate 81; Glucose 70 mg/dL (70-105); Lactate Dehydrogenase 135 U/L (94-250); Magnesium 1.8 mg/dL (1.6-2.5); Phosphorous 2.4 mg/dL (2.7-4.5); Potassium 3.9 mmol/L (3.3-5.1); Sodium 141 mmol/L (133-145); Triglycerides 68 mg/dl (<150); Uric Acid 5.2 mg/dL (2.5-8.0)
[2019-03-02] MEDS: 0.9 % SODIUM CHLORIDE 1,000 ML IV SCH ×6 (06:49→23:17)
--- NOTE | 2019-03-02 06:51 | XRay Report ---
CLINICAL INFORMATION: preop evaluation COMPARISON: 11/11/2018 FINDINGS: Mild cardiomegaly is unchanged. Tortuous thoracic aorta again noted. The remaining mediastinum and pulmonary vessels are within normal limits for portable technique and suboptimal inspiratory result. Lungs are clear. No effusions. IMPRESSION: Mild stable cardiomegaly - no acute disease Interpreted and Authenticated by: Nuno Roche 03/02/19
[2019-03-02] MEDS: fentaNYL 100 MCG/2 ML VIAL IV PRN ×2 (07:38→22:27)
[2019-03-02] MEDS: DULoxetine 30 MG CAPSULE PO SCH (08:51)
[2019-03-02] MEDS ORDERED: MAGNESIUM HYDROXIDE 30 ML ORAL.SUSP PO ONE (10:39)
[2019-03-02] MEDS: METHYLNALTREXONE BROMIDE 12 MG/0.6 ML SYRINGE SQ SCH (12:04)
[2019-03-02] MEDS: POLYETHYLENE GLYCOL 3350 17 GM PACKET PO SCH ×4 (12:04→23:17)
--- NOTE | 2019-03-02 12:12 | General Surgery Progress Note ---
Subjective Patient reports: feels better, pain is less, tolerating liquids well, flatus, no bowel movement, afebrile Narrative: Note initiated : 03/02/19 at 12:10 pm Service Date, if different from initiated Date: [] Patient: Kenya Diamond 88 y/o F admitted on 02/28/19 for abdominal pain. Chief Complaint: [Patient states that she feels slightly better. She has less nausea. She does not have abdominal pain at this time. She still has significant abdominal distention. Her major pain is back and hip pain. White blood count 5.6, hemoglobin 8.6, hematocrit 28.1, potassium 3.9, BUN 18, creatinine 0.6, phosphorus 2.4. X-ray shows more gas in colon with decreased gas in small bowel. Still with significant stool in distal colon. No major distention noted.] Objective Temp Pulse Resp BP Pulse Ox 96.7 F L 77 20 147/79 96 03/02/19 11:22 03/02/19 11:22 03/02/19 11:22 03/02/19 11:22 03/02/19 11:22 - Additional Data Intake & Output - Last 24 hours: Intake & Output 02/28/19 03/01/19 03/02/19 03/03/19 05:59 05:59 05:59 05:59 Intake Total 1053 3610 1000 Output Total 525 1950 Balance 528 1660 1000 Weight 178 lb 8 oz 179 lb - General physical appearance well developed, well nourished, moderate distress, moderate pain - Eyes PERRL, normal ocular movement - ENT normal pinna, normal nares, normal mucosa, no hearing loss, no congestion - Neck no masses, no bruits, trachea midline, no lymphadenopathy, no venous distension - Respiratory normal expansion, normal respiratory effort, clear to auscultation - Cardiovascular Cardiovascular exam: Present: normal rate and rhythm, RRR, +S1, +S2. Absent: JVD, tachycardia - Abdomen tender (mild tenderness in mid abdomen; larger incisional hernia is easily ballotable and reducible; good active bowel sounds; no masses) - Integumentary no rash, no growths, no abnormal pigmentation - Neurologic normal coordination, normal sensation, other (I paresthesias with palpation of soft tissue of both legs below the knee) - Musculoskeletal other (gait and stance not tested) - Psychiatric oriented to time, oriented to person, oriented to place, speech is normal, memory intact - Labs 03/02/19 03:53 03/02/19 03:53 Diabetes panel 03/02/19 Range/Units 03:53 Sodium 141 (133-145) mmol/L Potassium 3.9 (3.3-5.1) mmol/L Chloride 107 (96-108) mmol/L Carbon Dioxide 24 (22-30) mmol/L BUN 18 (8-23) mg/dl Creatinine 0.6 (0.6-1.1) mg/dl Glucose 70 (70-105) mg/dL Calcium 8.5 L (8.6-10.4) mg/dl AST 17 (0-37) U/l ALT 9 (0-40) U/l Alkaline Phosphatase 68 (39-117) U/L Total Protein 6.0 (5.9-8.4) gm/dL Albumin 2.8 L (3.2-5.2) gm/dL Triglycerides 68 (<150) mg/dl Calcium panel 03/02/19 Range/Units 03:53 Calcium 8.5 L (8.6-10.4) mg/dl Phosphorus 2.4 L (2.7-4.5) mg/dL Albumin 2.8 L (3.2-5.2) gm/dL Pituitary panel 03/02/19 Range/Units 03:53 Sodium 141 (133-145) mmol/L Potassium 3.9 (3.3-5.1) mmol/L Chloride 107 (96-108) mmol/L Carbon Dioxide 24 (22-30) mmol/L BUN 18 (8-23) mg/dl Creatinine 0.6 (0.6-1.1) mg/dl Glucose 70 (70-105) mg/dL Calcium 8.5 L (8.6-10.4) mg/dl Adrenal panel 03/02/19 Range/Units 03:53 Sodium 141 (133-145) mmol/L Potassium 3.9 (3.3-5.1) mmol/L Chloride 107 (96-108) mmol/L Carbon Dioxide 24 (22-30) mmol/L BUN 18 (8-23) mg/dl Creatinine 0.6 (0.6-1.1) mg/dl Glucose 70 (70-105) mg/dL Calcium 8.5 L (8.6-10.4) mg/dl Total Bilirubin 0.3 (0.0-1.0) mg/dL AST 17 (0-37) U/l ALT 9 (0-40) U/l Alkaline Phosphatase 68 (39-117) U/L Total Protein 6.0 (5.9-8.4) gm/dL Albumin 2.8 L (3.2-5.2) gm/dL Assessment and Plan (1) Adynamic ileus Status: Acute Assessment and plan: Iliopsoas clinically improved. Started on relistor to block the effect that narcotics is having on her bowel. Will start on MiraLAX 3 times daily. 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
--- NOTE | 2019-03-02 14:10 | XRay Report ---
CLINICAL INFORMATION: FOLLOW -UP OF SMALL BOWEL OBSTRUCTION COMPARISON: 02/28/2019 1703 hours FINDINGS: The stool gas pattern has normalized. No free air or soft tissue mass. Severe right hip degeneration noted. IMPRESSION: Interval resolution of partial small bowel obstruction. Negative exam Interpreted and Authenticated by: Nuno Roche 03/02/19
[2019-03-02] MEDS: MAGNESIUM HYDROXIDE 30 ML ORAL.SUSP PO SCH ×2 (15:49→20:44)
[2019-03-02] MEDS: ACETAMINOPHEN 325 MG TABLET PO PRN (20:29)
[2019-03-03] MEDS: METHOCARBAMOL 750 MG TABLET PO PRN ×3 (00:50→20:17)
[2019-03-03] MEDS: ACETAMINOPHEN 325 MG TABLET PO PRN ×3 (00:50→22:33)
[2019-03-03 06:02] LABS: Basophils # (Auto) 0 K/mcL (0.0-0.3); Basophils % (Auto) 0 % (0.0-2.0); Eosinophils # (Auto) 0.2 K/mcL (0.0-0.7); Granulocytes % (Auto) 74.7 % (38.0-78.0); Hematocrit 29.6 % (36.0-48.0); Lymphocytes # (Auto) 1.3 K/mcL (1.5-4.8); Lymphocytes % (Auto) 14.1 % (15.5-49.0); Mean Cell Volume 67.3 fL (80.0-100.0); Mean Corpuscular HGB Conc 30.3 g/dL (31.0-36.0); Mean Platelet Volume 8.1 fL (7.4-10.4); Monocytes # (Auto) 0.9 K/mcL (0.1-0.9); Monocytes % (Auto) 9.2 % (1.0-12.0); Platelet Count 529 K/mcL (140-440); WBC 9.4 K/mcL (4.5-11.0)
[2019-03-03 06:48] LABS: ALT/SGPT 10 U/l (0-40); AST/SGOT 18 U/l (0-37); Albumin 2.9 gm/dL (3.2-5.2); Albumin/Globulin Ratio 0.9 (1.0-2.3); Alkaline Phosphatase 78 U/L (39-117); Bilirubin,Direct < 0.2 mg/dL (0.0-0.3); Bilirubin,Total 0.4 mg/dL (0.0-1.0); Blood Urea Nitrogen 9 mg/dl (8-23); Calcium 8.5 mg/dl (8.6-10.4); Carbon Dioxide 20 mmol/L (22-30); Chloride 104 mmol/L (96-108); Globulin 3.3 gm/dL (2.2-3.7); Glomerular Filtration Rate 81; Glucose 85 mg/dL (70-105); Lactate Dehydrogenase 177 U/L (94-250); Magnesium 1.9 mg/dL (1.6-2.5); Phosphorous 1.5 mg/dL (2.7-4.5); Potassium 3.8 mmol/L (3.3-5.1); Sodium 136 mmol/L (133-145); Triglycerides 77 mg/dl (<150); Uric Acid 4.6 mg/dL (2.5-8.0)
--- NOTE | 2019-03-03 07:42 | XRay Report ---
CLINICAL INFORMATION: FOLLOW -UP OF SMALL BOWEL OBSTRUCTION COMPARISON: 03/02/2019 FINDINGS: Stool gas pattern remains normal. No free air, soft tissue mass or organomegaly. Interestingly, there is a linear group of approximately 14 calcifications, overlying the right midabdomen, ranging between 20 mm and 6 mm. These have been persistent in location on multiple prior imaging studies including the CT two days ago. On CT, there are known to be located within the right colon lumen 3 cm superior to the ileal /right colon anastomosis.. IMPRESSION: No evidence recurrent small bowel obstruction. Linear grouping of calcifications, ranging between 20 and 6 mm, known to be within the lumen of the mid right colon - just superior to the ileal anastomoses. Although they are intraluminal, they may be adhered to the bowel wall since they have maintained stable location on imaging exams for the past three days. Interpreted and Authenticated by: Nuno Roche 03/03/19
[2019-03-03] MEDS: DULoxetine 30 MG CAPSULE PO SCH (09:17)
[2019-03-03] MEDS: METHYLNALTREXONE BROMIDE 12 MG/0.6 ML SYRINGE SQ SCH (10:50)
[2019-03-03] MEDS: traMADol 50 MG TABLET PO PRN ×2 (11:56→20:17)
[2019-03-03] MEDS: POTASSIUM PHOSPHATE 40 MEQ in DEXTROSE 5% IN WATER 500 ML IV SCH ×2 (12:00→20:12)
--- NOTE | 2019-03-03 12:20 | General Surgery Progress Note ---
Subjective Patient reports: feels better, pain is less, tolerating liquids well, flatus, bowel movement, afebrile Narrative: Note initiated : 03/03/19 at 12:17 pm Service Date, if different from initiated Date: [] Patient: eKnya Diamond 88 y/o F admitted on 02/28/19 for abdominal pain. Chief Complaint: [patient feels better. She denies having any abdominal pain. She had 6 bowel movements last evening. Her abdomen is still mildly distended. She denies nausea and is tolerating liquids without difficulty. Abdominal x- ray shows dilated loops of colon and small bowel but it extends down into the distal colon ruling out obstruction. Her major complaint is right leg and thigh pain. This is a chronic complaint. She's been restarted on her tramadol since this usually controls her discomfort. White blood count 9.4, hemoglobin 11.2, hematocrit 34.2, phosphorus 2.1.] Objective Temp Pulse Resp BP Pulse Ox 97.8 F 92 H 18 158/86 96 03/03/19 08:00 03/03/19 08:00 03/03/19 08:00 03/03/19 08:00 03/03/19 08:00 - Additional Data Intake & Output - Last 24 hours: Intake & Output 03/01/19 03/02/19 03/03/19 03/04/19 05:59 05:59 05:59 05:59 Intake Total 1053 3610 4280 Output Total 525 1950 1301 350 Balance 528 1660 2979 -350 Weight 178 lb 8 oz 179 lb 176 lb - General physical appearance well developed, well nourished, moderate distress, moderate pain, chronically ill, obese - Eyes PERRL, normal ocular movement - ENT normal pinna, normal nares, normal mucosa, no hearing loss, no congestion - Neck no masses, no bruits, trachea midline, no lymphadenopathy, no venous distension - Respiratory normal expansion, normal respiratory effort, clear to auscultation - Cardiovascular Cardiovascular exam: Present: normal rate and rhythm, RRR, +S1, +S2. Absent: JVD, tachycardia - Abdomen non tender, bowel sounds (present), surgical scars (none), masses (none), distended (abdomen is distended but soft and nontender; she has good active bowel sounds. Her supraumbilical hernia is unchanged.) - Integumentary no rash, no growths, no abnormal pigmentation - Neurologic normal coordination, normal sensation - Musculoskeletal other ( Ambulatory with maximal assistance) - Psychiatric oriented to time, oriented to person, oriented to place, speech is normal, memory intact - Labs 03/03/19 04:33 03/03/19 04:33 Diabetes panel 03/03/19 Range/Units 04:33 Sodium 136 (133-145) mmol/L Potassium 3.8 (3.3-5.1) mmol/L Chloride 104 (96-108) mmol/L Carbon Dioxide 20 L (22-30) mmol/L BUN 9 (8-23) mg/dl Creatinine 0.6 (0.6-1.1) mg/dl Glucose 85 (70-105) mg/dL Calcium 8.5 L (8.6-10.4) mg/dl AST 18 (0-37) U/l ALT 10 (0-40) U/l Alkaline Phosphatase 78 (39-117) U/L Total Protein 6.2 (5.9-8.4) gm/dL Albumin 2.9 L (3.2-5.2) gm/dL Triglycerides 77 (<150) mg/dl Calcium panel 03/03/19 Range/Units 04:33 Calcium 8.5 L (8.6-10.4) mg/dl Phosphorus 1.5 L (2.7-4.5) mg/dL Albumin 2.9 L (3.2-5.2) gm/dL Pituitary panel 03/03/19 Range/Units 04:33 Sodium 136 (133-145) mmol/L Potassium 3.8 (3.3-5.1) mmol/L Chloride 104 (96-108) mmol/L Carbon Dioxide 20 L (22-30) mmol/L BUN 9 (8-23) mg/dl Creatinine 0.6 (0.6-1.1) mg/dl Glucose 85 (70-105) mg/dL Calcium 8.5 L (8.6-10.4) mg/dl Adrenal panel 03/03/19 Range/Units 04:33 Sodium 136 (133-145) mmol/L Potassium 3.8 (3.3-5.1) mmol/L Chloride 104 (96-108) mmol/L Carbon Dioxide 20 L (22-30) mmol/L BUN 9 (8-23) mg/dl Creatinine 0.6 (0.6-1.1) mg/dl Glucose 85 (70-105) mg/dL Calcium 8.5 L (8.6-10.4) mg/dl Total Bilirubin 0.4 (0.0-1.0) mg/dL AST 18 (0-37) U/l ALT 10 (0-40) U/l Alkaline Phosphatase 78 (39-117) U/L Total Protein 6.2 (5.9-8.4) gm/dL Albumin 2.9 L (3.2-5.2) gm/dL Assessment and Plan (1) Adynamic ileus Status: Acute Assessment and plan: clinically improved. Started on relistor to block the effect that narcotics is having on her bowel. Will start on MiraLAX 3 times daily. 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
[2019-03-03] MEDS ORDERED: ZOLPIDEM 5 MG TABLET PO PRN (12:50)
[2019-03-03] MEDS: 0.9 % SODIUM CHLORIDE 1,000 ML IV SCH (16:14)
[2019-03-04] MEDS: traMADol 50 MG TABLET PO PRN ×2 (04:19→14:42)
[2019-03-04] MEDS ORDERED: POTASSIUM PHOSPHATE 40 MEQ in DEXTROSE 5% IN WATER 500 ML IV ONE (08:28)
[2019-03-04] MEDS ORDERED: NEUTRA PHOS 1 PACKET PO ONE (08:29)
--- NOTE | 2019-03-04 08:42 | XRay Report ---
CLINICAL INFORMATION: FOLLOW -UP OF SMALL BOWEL OBSTRUCTION COMPARISON: None. FINDINGS: The stool gas pattern is unremarkable. Grouping of calcifications, known to be within the mid right colon, are unchanged There is no free air, soft tissue mass, or organomegaly IMPRESSION: No evidence for recurrent obstruction. Stable Interpreted and Authenticated by: Nuno Roche 03/04/19
[2019-03-04] MEDS: DULoxetine 30 MG CAPSULE PO SCH (10:17)
[2019-03-04] MEDS: METHYLNALTREXONE BROMIDE 12 MG/0.6 ML SYRINGE SQ SCH (10:17)
[2019-03-04] MEDS: ACETAMINOPHEN 325 MG TABLET PO PRN (14:41)
--- NOTE | 2019-03-04 15:13 | Discharge Summary ---
Providers - Providers Patient information: Note initiated : 03/04/19 at 3:11 pm Service Date, if different from initiated Date: [] Patient: Kenya Diamond 88 y/o F admitted on 02/28/19 for abdominal pain. Chief Complaint: [] Date of admission: 02/28/19 Discharge date: 03/04/19 Attending physician: Krystle Gerardo Hospitalization Hospital course: 88-year-old female admitted for evaluation of nausea, vomiting and partial small bowel obstruction. The patient has a long-term history of chronic intermittent pain related to her joint center of her back. She was recently started on Neurontin and had onset of nausea and vomiting after taking her new dose. She was seen in the emergency room and abdominal x-rays suggested partial jejunal obstruction. However, x-rays showed dilated jejunum and ileum with gas in the colon leading up to her ileocolonic anastomosis. CT of the abdomen was done which showed large 10 cm incisional hernia with a loop of jejunum but without complete obstruction. The patient was treated symptomatically and gradually improved. She was also given Relistor which led to passage of multiple large bowel movements with a large volume of flatus. She has gradually improved. Her joint and back pain was controlled with tramadol and she was restarted on this medication. She is clinically stable at this time and is tolerating diet without difficulty. She is discharged home in stable satisfactory condition. Discharge diagnosis: adynamic ileus Secondary discharge diagnosis: Narcotic induced constipation. Chronic pain syndrome. Degenerative joint disease. Degenerative disc disease. Incisional hernia Reason for admission: abdominal pain, nausea, vomiting, constipation Procedures: None Pertinent studies/significant findings: CT of abdomen and pelvis with contrast Complications: None Exam Temp Pulse Resp BP Pulse Ox 98.9 F 98 H 18 132/88 95 03/04/19 12:00 03/04/19 12:00 03/04/19 12:00 03/04/19 12:00 03/04/19 12:00 - General physical appearance well developed, well nourished, no distress - Eyes PERRL, normal ocular movement - ENT normal pinna, normal nares, normal mucosa, no hearing loss, no congestion - Head Head exam IM: Present: atraumatic, normocephalic - Neck no masses, no bruits, trachea midline, no lymphadenopathy, no venous distension - Cardiovascular Cardiovascular exam IM: Present: normal rate and rhythm - Respiratory normal expansion, normal respiratory effort, clear to auscultation - Abdomen Abdomen: Present: soft, bowel sounds, distended (mildly distended with minimal tenderness; hyperactive bowel sounds; liver pliable. Reducible incisional hernia) Hernia: Present: none - Genitourinary Present: normal external genitalia - Integumentary Present: no rash, no growths, no abnormal pigmentation - Neurologic Present: normal coordination, normal sensation - Musculoskeletal Present: normal posture, other (. Unstable gait with need for standby assistance; tenderness to palpation of left leg and with movement of left hip) - Psychiatric Present: oriented to person, speech is normal, memory intact, other (, mildly diminished cognitive ability) Discharge Plan - Patient/Caregiver Discharge Instructions Activity: increase activity as tolerated Diet: Regular Diet Additional Instructions: Take MiraLAX 17 g in 8 ounces liquid 2-3 times daily to prevent constipation - Follow up Plan Follow up with: Adeel Underwood MD [Primary Care Provider] - Disposition: Home, Self-Care Prognosis: Good Rehab Potential: Good I certify that the patient requires SNF services.: No Overall status at discharge: patient is back to baseline Pending Studies Resuscitation Status Full Code Diet Regular Diet Start SunMar 04 831 Acetaminophen (Tylenol) 650 mg PO Q6HP PRN PRN Reason: PAIN/FEVER > 101 Last Admin: 03/04/19 14:41 Dose: 650 mg Documented by: Admin: 03/03/19 22:33 Dose: 650 mg Documented by: Admin: 03/03/19 09:31 Dose: 650 mg Documented by: [email or web address] Admin: 03/03/19 00:50 Dose: 650 mg Documented by: Admin: 03/02/19 20:29 Dose: 650 mg Documented by: JER Duloxetine HCl (Cymbalta) 60 mg PO DAILY PHILIP Last Admin: 03/04/19 10:17 Dose: 60 mg Documented by: Admin: 03/03/19 09:17 Dose: 60 mg Documented by: Admin: 03/02/19 08:51 Dose: 60 mg Documented by: SABRINA Fentanyl (Sublimaze) 25 mcg IV Q4HP PRN PRN Reason: PAIN LEVEL > 6 Last Admin: 03/02/19 22:27 Dose: 25 mcg Documented by: Admin: 03/02/19 07:38 Dose: 25 mcg Documented by: Admin: 03/01/19 18:42 Dose: 25 mcg Documented by: Admin: 03/01/19 13:24 Dose: 25 mcg Documented by: Admin: 03/01/19 09:48 Dose: 25 mcg Documented by: Admin: 03/01/19 06:07 Dose: 25 mcg Documented by: Admin: 03/01/19 02:09 Dose: 25 mcg Documented by: Admin: 02/28/19 22:09 Dose: 25 mcg Documented by: TEENA Hydromorphone HCl (Dilaudid) 0.5 mg IV Q4HP PRN PRN Reason: PAIN LEVEL > 6 Last Admin: 03/02/19 12:05 Dose: 0.5 mg Documented by: Admin: 03/02/19 03:10 Dose: 0.5 mg Documented by: Admin: 03/01/19 21:40 Dose: 0.5 mg Documented by: VITA Methocarbamol (Robaxin) 750 mg PO Q6HP PRN PRN Reason: Muscle Spasm Last Admin: 03/03/19 20:17 Dose: 750 mg Documented by: Admin: 03/03/19 09:52 Dose: 750 mg Documented by: Admin: 03/03/19 00:50 Dose: 750 mg Documented by: Admin: 03/02/19 19:35 Dose: 750 mg Documented by: Admin: 03/02/19 08:51 Dose: 750 mg Documented by: Admin: 03/02/19 03:10 Dose: 750 mg Documented by: Admin: 03/01/19 20:42 Dose: 750 mg Documented by: Admin: 03/01/19 07:40 Dose: 750 mg Documented by: Admin: 03/01/19 00:12 Dose: 750 mg Documented by: TEENA Promethazine HCl (Phenergan) 12.5 mg IV Q6HP PRN PRN Reason: Nausea And Vomiting Last Admin: 03/01/19 21:11 Dose: 12.5 mg Documented by: Admin: 03/01/19 05:38 Dose: 12.5 mg Documented by: MANINDER Tramadol HCl (Ultram) 100 mg PO Q6HP PRN PRN Reason: Pain Last Admin: 03/04/19 14:42 Dose: 100 mg Documented by: Admin: 03/04/19 04:19 Dose: 100 mg Documented by: Admin: 03/03/19 20:17 Dose: 100 mg Documented by: Admin: 03/03/19 11:56 Dose: 100 mg Documented by: [email or web address] Shift Summary 03/04/19 03:23 Shift Summary by Jose Armando Funez Alert and oriented timed four. Tramadol and Robaxin helping with patient pain. complained of no nausea. up with assist to the bedside commode. has been incontinent of bladder. IV saline locked in the right and left arm arm. Planned to be discharged today. Initialized on 03/04/19 03:23 - END OF NOTE
== END 2019-03-04 16:00 | disposition home or self-care (01) | DRG 390 ==
LOC: ED 14:43 → MEDSUR 14:43 → OBSVTOIN 19:30 → MEDSUR 19:36
PROVIDERS: ADMIT Family Medicine Adult Medicine; ATTEND Family Medicine Adult Medicine